=== PATIENT | male | born 1960 | race Caucasian/White ===

== ENCOUNTER 2017-06-06 19:57 | Emergency (ER) | payer OTHER ==
[2017-06-06 20:10] VITALS: BP 153/103
[2017-06-06] MEDS ORDERED: TRAM-48 PO (21:56)
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
--- NOTE | 2017-06-07 08:54 | RAD ---
Chest, 2 views, 06/06/2017: History: Chest pain Comparison is made to a study from 10/05/2011. The heart size and pulmonary vascularity are normal. No pulmonary infiltrates are seen. There is no evidence of pleural fluid. Mild spurring is present in the spine. IMPRESSION: No acute cardiopulmonary abnormality is detected.
== END 2017-06-06 22:02 | disposition home or self-care (01) ==
LOC: ER 19:57
DX: R91.1 Solitary pulmonary nodule (principal); R07.89 Other chest pain; I25.10 Atherosclerotic heart disease of native coronary artery without angina pectoris; I10 Essential (primary) hypertension; E78.00 Pure hypercholesterolemia, unspecified; I25.2 Old myocardial infarction
CPT/HCPCS: 71020; 99284

== ENCOUNTER 2018-12-18 11:01 | Emergency (ER) | payer OTHER ==
[~2018-12-18] VITALS: Ht 190.5 cm; Wt 113.4 kg
[~2018-12-18 11:01] MED LIST: TRAM-48 PO
[2018-12-18 11:14] VITALS: BP 169/104
[2018-12-18] MEDS ORDERED: AMOX1TAB61 PO (12:42)
[2018-12-18] MEDS ORDERED: FLUC150T PO (12:42)
--- NOTE | 2018-12-18 12:42 | PHYS DOC ---
Past History Past Medical History: CAD, High Cholesterol, Hypertension, Liver Disease, [place] Past Surgical History: Cholecystectomy, Other Alcohol Use: None Drug Use: None Adult General Chief Complaint Chief Complaint: DENTAL PROBLEM HPI HPI 58 sure male presents with tongue lesion. The patient has had white lesions on his skin lesions on his oropharynx off and on for a few weeks. The patient has been treating it with salt rinses at home. He can get it down, but not go away. Today he has a lesion on the left side of his tongue and his tongue feels slightly swollen. His recently was diagnosed and treated for thrush. The patient is concerned about strep or an infection. He has not had a fever at home. Review of Systems Review of Systems Constitutional: Denies fever or chills [] Eyes: Denies change in visual acuity, redness, or eye pain [] HENT: Sore tongue, sore throat [] Respiratory: Denies cough or shortness of breath [] Cardiovascular: No additional information not addressed in HPI [] GI: Denies abdominal pain, nausea, vomiting, bloody stools or diarrhea [] : Denies dysuria or hematuria [] Musculoskeletal: Denies back pain or joint pain [] Integument: Denies rash or skin lesions [] Neurologic: Denies headache, focal weakness or sensory changes [] Endocrine: Denies polyuria or polydipsia [] All other systems were reviewed and found to be within normal limits, except as documented in this note. Allergies Allergies Allergies Coded Allergies Type Severity Reaction Last Updated Verified No Known Allergies Allergy Unknown 06/06/17 Yes Physical Exam Physical Exam Constitutional: Well developed, well nourished, no acute distress, non-toxic appearance. [] HENT: Normocephalic, atraumatic, bilateral external ears normal, oropharynx erythematous with 1 cm whitish lesion on the lateral tongue left side. [] Eyes: PERRLA, EOMI, conjunctiva normal, no discharge. [] Neck: Normal range of motion, no tenderness, supple, no stridor. [] Cardiovascular:Heart rate regular rhythm, no murmur [] Lungs & Thorax: Bilateral breath sounds clear to auscultation [] Abdomen: Bowel sounds normal, soft, no tenderness, no masses, no pulsatile masses. [] Skin: Warm, dry, no erythema, no rash. [] Back: No tenderness, no CVA tenderness. [] Extremities: No tenderness, no cyanosis, no clubbing, ROM intact, no edema. [] Neurologic: Alert and oriented X 3, normal motor function, normal sensory function, no focal deficits noted. [] Psychologic: Affect normal, judgement normal, mood normal. [] Current Patient Data Vital Signs Vital Signs Date Time Temp Pulse Resp B/P (MAP) Pulse Ox O2 Delivery O2 Flow Rate FiO2 12/18/18 11:14 98.1 94 20 94 EKG EKG [] Radiology/Procedures Radiology/Procedures [] Course & Med Decision Making Course & Med Decision Making Pertinent Labs and Imaging studies reviewed. (See chart for details) Unsure of this fungal infection or a localized infection that is bacterial. I'm going to treat the patient in the ED with Diflucan. Also discharge on 7 days of Augmentin. I will also give him prescription for an additional dose of Diflucan PTC antibiotics make this worse. The patient is stable for discharge at this time. [] Dragon Disclaimer Dragon Disclaimer This electronic medical record was generated, in whole or in part, using a voice recognition dictation system. Departure Departure: Impression: Primary Impression: Thrush, oral Disposition: HOME, SELF-CARE Condition: STABLE Referrals: ARVIN ALTAMIRANO MD (PCP) Patient Instructions: Thrush, Adult, Gytb-el-Kylc Scripts Fluconazole (DIFLUCAN) 150 Mg Tablet 1 TAB PO ONCE for thrush, #1 TAB 1 Refill Prov: TAMMY KASPER DO 12/18/18 Amoxicillin/Potassium Clav (AUGMENTIN 875-125 TABLET) 1 Each Tablet 1 TAB PO BID for mouth infection, #14 TAB Prov: TAMMY KASPER DO 12/18/18 TAMMY KASPER DO Dec 18, 2018 12:42
[2018-12-18] MEDS ORDERED: FLUCONAZOLE 100 MG TABLET. PO ONE (12:45)
--- NOTE | 2018-12-18 13:02 | RAD ---
Chest, PA and Lateral: Technique: PA and lateral views of the chest were obtained. History: Cough. Comparison: 06/06/2017. Findings: The heart and pulmonary vasculature appear within normal limits. Minimal bibasilar lung airspace opacities.. The pleural margins are clear. Impression: Minimal bibasilar lung airspace opacities likely atelectasis or infiltrates.. Electronically signed by: Ovidio Greco MD (12/18/2018 12:59 PM) [facility]
[2019-01-16] MEDS ORDERED: GABA-585 PO (15:17)
[2019-01-17] MEDS ORDERED: PREG50CA PO (12:45)
[2019-01-17] MEDS ORDERED: PREG100C PO (12:45)
== END 2018-12-18 12:48 | disposition home or self-care (01) ==
LOC: ER 11:01
DX: B37.0 Candidal stomatitis (principal); I25.10 Atherosclerotic heart disease of native coronary artery without angina pectoris; E78.00 Pure hypercholesterolemia, unspecified; I10 Essential (primary) hypertension; I25.2 Old myocardial infarction
CPT/HCPCS: 71046; 87070; 87880; 99284

== ENCOUNTER 2019-01-05 19:12 | Observation (INO) | payer OTHER ==
[~2019-01-05] VITALS: Ht 193 cm; Wt 121.8 kg
[~2019-01-05 19:12] MED LIST changes: +AMOX1TAB61 PO; +FLUC150T PO
[2019-01-05] MEDS ORDERED: IV NORMAL SALINE 1,000ML 1,000 ML IV ONE (20:00)
[2019-01-05] MEDS ORDERED: THIAMINE INJ 100 MG in IV NORMAL SALINE 50ML 50 ML IV ONE (20:00)
[2019-01-05 20:07] LABS: BASO % 0 % (0-3); EOS # 0.1 x10^3/uL (0.0-0.7); EOS % 1 % (0-3); HEMATOCRIT 48.5 % (39.0-53.0); HEMOGLOBIN 16.6 g/dL (13.0-17.5); LYMPH # 4.9 x10^3/uL (1.0-4.8); LYMPH % 55 % (24-48); MEAN CORPUSCULAR HEMOGLOBIN 33 pg (25-35); MEAN CORPUSCULAR HGB CONC 34 g/dL (31-37); MEAN CORPUSCULAR VOLUME 96 fL (79-100); MONO # 0.8 x10^3/uL (0.0-1.1); MONO % 9 % (0-9); NEUT # 3.2 x10^3uL (1.8-7.7); NEUT % 35 % (31-73); PLATELET COUNT 127 x10^3/uL (140-400); RED BLOOD COUNT 5.04 x10^6/uL (4.30-5.70); RED CELL DISTRIBUTION WIDTH 14.4 % (11.5-14.5)
[2019-01-05 20:08] LABS: ALBUMIN 3.4 g/dL (3.4-5.0); ALBUMIN/GLOBULIN RATIO 0.9 (1.0-1.7); CALCIUM 8.6 mg/dL (8.5-10.1); CREATININE 0.7 mg/dL (0.7-1.3); GFR 116.7; POTASSIUM 3.5 mmol/L (3.5-5.1); TOTAL BILIRUBIN 0.5 mg/dL (0.2-1.0)
[2019-01-05] MEDS ORDERED: ONDANSETRON PF 4 MG/2 ML VIAL. IV PRN (20:45)
--- NOTE | 2019-01-05 20:49 | ED.ADGEN ---
Past History Past Medical History: CAD, High Cholesterol, Hypertension, Liver Disease, [place] Past Surgical History: Cholecystectomy, Other Alcohol Use: None Drug Use: None Adult General Chief Complaint Chief Complaint chest pain HPI HPI 58 years old male presented to the emergency department via ambulance complaining of chest pain and leg pain. This gentleman he was seen and evaluated at [facility] on December 30, 2018 at 239 morning for being unresponsive he was found to be overdosed on heroin apparently EMS found him unresponsive and they did CPR on him also started an IO on his right leg to give him Narcan 2 mg IV which he responded patient presents to the emergency department stating he's been having chest pain since the CPR he is unable to describe his pain for me and able to answer any question DUE TO intoxication with alcohol Review of Systems Review of Systems Unable to be obtained due to intoxication Current Medications Current Medications Current Medications Medications (Trade) Dose Ordered Sig/Lynnette Start Time Stop Time Status Last Admin Dose Admin Fentanyl Citrate (Fentanyl 2ml Vial) 50 mcg 1X ONCE 01/05/19 20:15 01/05/19 20:16 DC 01/05/19 20:13 50 MCG Ondansetron HCl (Zofran) 4 mg PRN Q4HRS PRN 01/05/19 20:45 01/06/19 20:44 UNV Sodium Chloride 1,000 ml @ 0 mls/hr Q0M 01/05/19 20:41 01/06/19 20:40 UNV Thiamine HCl 100 mg/Sodium Chloride 51 ml @ 102 mls/hr 1X ONCE 01/05/19 20:00 01/05/19 20:29 DC 01/05/19 20:15 102 MLS/HR Allergies Allergies Allergies Coded Allergies Type Severity Reaction Last Updated Verified No Known Allergies Allergy Unknown 06/06/17 Yes Physical Exam Physical Exam Constitutional: Well developed, well nourished, no acute distress, non-toxic appearance. [] HENT: Normocephalic, atraumatic, bilateral external ears normal, Eyes: PERRLA, EOMI, conjunctiva normal, no discharge. [] Neck: Normal range of motion, no tenderness, supple, no stridor. [] Cardiovascular:Heart rate regular rhythm, no murmur [] Lungs & Thorax: Bilateral breath sounds clear to auscultation [] Abdomen: Bowel sounds normal, soft, no tenderness, no masses, no pulsatile masses. [] Skin: Warm, dry, no erythema, no rash. [] Current Patient Data Vital Signs Vital Signs Date Time Temp Pulse Resp B/P (MAP) Pulse Ox O2 Delivery O2 Flow Rate FiO2 01/05/19 20:13 16 Lab Results Laboratory Tests Test 01/05/19 19:35 White Blood Count 9.0 x10^3/uL (4.0-11.0) Red Blood Count 5.04 x10^6/uL (4.30-5.70) Hemoglobin 16.6 g/dL (13.0-17.5) Hematocrit 48.5 % (39.0-53.0) Mean Corpuscular Volume 96 fL (79-100) Mean Corpuscular Hemoglobin 33 pg (25-35) Mean Corpuscular Hemoglobin Concent 34 g/dL (31-37) Red Cell Distribution Width 14.4 % (11.5-14.5) Platelet Count 127 x10^3/uL (140-400) L Neutrophils (%) (Auto) 35 % (31-73) Lymphocytes (%) (Auto) 55 % (24-48) H Monocytes (%) (Auto) 9 % (0-9) Eosinophils (%) (Auto) 1 % (0-3) Basophils (%) (Auto) 0 % (0-3) Neutrophils # (Auto) 3.2 x10^3uL (1.8-7.7) Lymphocytes # (Auto) 4.9 x10^3/uL (1.0-4.8) H Monocytes # (Auto) 0.8 x10^3/uL (0.0-1.1) Eosinophils # (Auto) 0.1 x10^3/uL (0.0-0.7) Basophils # (Auto) 0.0 x10^3/uL (0.0-0.2) Platelet Estimate Pending Sodium Level 145 mmol/L (136-145) Potassium Level 3.5 mmol/L (3.5-5.1) Chloride Level 106 mmol/L (98-107) Carbon Dioxide Level 26 mmol/L (21-32) Anion Gap 13 (6-14) Blood Urea Nitrogen 5 mg/dL (8-26) L Creatinine 0.7 mg/dL (0.7-1.3) Estimated GFR (Cockcroft-Gault) 116.7 BUN/Creatinine Ratio 7 (6-20) Glucose Level 108 mg/dL (70-99) H Calcium Level 8.6 mg/dL (8.5-10.1) Total Bilirubin 0.5 mg/dL (0.2-1.0) Aspartate Amino Transferase (AST) 67 U/L (15-37) H Alanine Aminotransferase (ALT) 56 U/L (16-63) Alkaline Phosphatase 99 U/L (46-116) Troponin I Quantitative < 0.017 ng/mL (0-0.055) Total Protein 7.0 g/dL (6.4-8.2) Albumin 3.4 g/dL (3.4-5.0) Albumin/Globulin Ratio 0.9 (1.0-1.7) L Lipase 547 U/L (73-393) H Ethyl Alcohol Level 435 mg/dL (0-10) *H EKG EKG [] Radiology/Procedures Radiology/Procedures [] Course & Med Decision Making Course & Med Decision Making Pertinent Labs and Imaging studies reviewed. (See chart for details) [] Final Impression Final Impression [] Problems: (1) Intoxication (2) Chest pain in adult Dragon Disclaimer Dragon Disclaimer This electronic medical record was generated, in whole or in part, using a voice recognition dictation system. TIMOTEO BORREGO MD Jan 05, 2019 20:49
[2019-01-05 21:00] LABS: % ATYL 4 % (0-0); % EOS 2 % (0-5); % LYMPHS 49 % (24-48); % MONOS 7 % (0-10); % SEGS 38 % (35-66)
[2019-01-05 21:01] LABS: ANISOCYTOSIS SLIGHT; PLT ESTIMATE ADEQUATE (ADEQUATE)
[2019-01-05 23:05] VITALS: BP 119/83
[2019-01-05] MEDS: IV NORMAL SALINE 1,000ML 1,000 ML IV SCH (23:05)
[2019-01-05] MEDS ORDERED: chlordiazePOXIDE HCL 25 MG CAPSULE PO PRN ×2 (23:45)
[2019-01-05] MEDS ORDERED: HALOPERIDOL LACT 5 MG/ML VIAL. IM PRN (23:45)
[2019-01-05] MEDS ORDERED: diphenhydrAMINE 50 MG/ML VIAL IVP PRN (23:45)
[2019-01-06] VITALS (16 sets, daily range): BP systolic 125–173; BP diastolic 73–108
[2019-01-06] MEDS: oxyCODONE IR 5 MG TABLET PO PRN ×2 (00:06→05:08)
[2019-01-06] MEDS: MORPHINE SULFATE 4 MG/ML DISP.SYRIN. IV PRN ×2 (02:07→06:22)
[2019-01-06] MEDS ORDERED: PROP120C3 PO (03:24)
[2019-01-06] MEDS ORDERED: AMLO5TAB10 PO (03:24)
[2019-01-06] MEDS ORDERED: CLON0.1T12 PO (04:47)
[2019-01-06] MEDS ORDERED: PREN-54 PO (04:47)
[2019-01-06] MEDS ORDERED: LACT10SO PO (04:47)
[2019-01-06] MEDS ORDERED: FLUT16SP21 NS (04:47)
[2019-01-06] MEDS: IV NORMAL SALINE 1,000ML 1,000 ML IV SCH ×2 (06:00→10:01)
[2019-01-06 06:42] LABS: BASO % 0 % (0-3); EOS # 0.1 x10^3/uL (0.0-0.7); EOS % 1 % (0-3); HEMATOCRIT 45.4 % (39.0-53.0); HEMOGLOBIN 15.2 g/dL (13.0-17.5); LYMPH # 3.9 x10^3/uL (1.0-4.8); LYMPH % 60 % (24-48); MEAN CORPUSCULAR HEMOGLOBIN 32 pg (25-35); MEAN CORPUSCULAR HGB CONC 34 g/dL (31-37); MEAN CORPUSCULAR VOLUME 97 fL (79-100); MONO # 0.5 x10^3/uL (0.0-1.1); MONO % 7 % (0-9); NEUT # 2.1 x10^3uL (1.8-7.7); NEUT % 32 % (31-73); PLATELET COUNT 105 x10^3/uL (140-400); RED CELL DISTRIBUTION WIDTH 14.7 % (11.5-14.5); WHITE BLOOD COUNT 6.6 x10^3/uL (4.0-11.0)
[2019-01-06 06:48] LABS: ALBUMIN 2.9 g/dL (3.4-5.0); ALBUMIN/GLOBULIN RATIO 0.8 (1.0-1.7); CALCIUM 7.8 mg/dL (8.5-10.1); CREATININE 0.7 mg/dL (0.7-1.3); GFR 116.7; POTASSIUM 3.6 mmol/L (3.5-5.1); TOTAL BILIRUBIN 0.5 mg/dL (0.2-1.0); TOTAL PROTEIN 6.5 g/dL (6.4-8.2)
--- NOTE | 2019-01-06 08:17 | RAD ---
Indication:Chest pain, short of air TECHNIQUE:Portable AP chest X-ray COMPARISON:12/18/2018 FINDINGS: Heart is normal in size. Lungs are clear. No pneumothorax or pleural effusion. Visualized bony thorax is within normal limits. IMPRESSION: No acute pulmonary process. Electronically signed by: Ace Torres DO (01/06/2019 8:14 AM) [facility]
[2019-01-06] MEDS ORDERED: FOLIC ACID 1 MG TABLET PO SCH (09:00)
[2019-01-06] MEDS ORDERED: MULTIVITAMIN with MINERAL TABLET. PO SCH (09:00)
[2019-01-06 09:02] LABS: BARBITURATES NEG (NEG); BENZODIAZEPINES NEG (NEG); CANNABINOIDS NEG (NEG); COCAINE POS (NEG); METHADONE NEG (NEG); OPIATES POS (NEG); PHENCYCLIDINE NEG (NEG)
[2019-01-06 09:07] LABS: AMPHETAMINE/METHAMPHETAMINE NEG (NEG)
[2019-01-06] MEDS ORDERED: oxyCODONE IR 5 MG TABLET PO PRN (12:00)
[2019-01-06] MEDS ORDERED: amLODIPine BESYLATE 5 MG TABLET PO SCH (14:00)
[2019-01-06] MEDS ORDERED: FLUTICASONE 50MCG/NASAL SPRAY 16GM BOTTLE. NS SCH (14:00)
--- NOTE | 2019-01-06 18:35 | SSS ---
ADMIT DATE: 01/06/2019 HISTORY OF PRESENT ILLNESS: The patient is a 58-year-old male patient who presented to the Emergency Department via ambulance complaining of chest pain and leg pain. He apparently was seen and evaluated at [facility] system 12/30/2018 for being unresponsive and was found to have overdosed on heroin and apparently EMS found him unresponsive and they did the CPR and also started on intraosseous access in his right leg to give him Narcan 2 mg IV, which he responded. He presented stating that he has been having chest pain since the CPR. He is unable to describe his pain and he was basically very intoxicated and his blood alcohol level was extremely high. In fact, his blood alcohol level was 435. However, all his lab work seems to be within normal range and a decision was made to admit him for overnight observation until he hair up. PAST MEDICAL HISTORY: Significant for alcohol abuse, acute upper GI bleed, alcohol induced acute pancreatitis, chronic anemia, has had a history of acute cholecystitis. Cervical disk disease, cervical radiculopathy, cervicalgia, chronic hepatitis C with cirrhosis, chronic hepatitis C without hepatic coma, has chronic midline low back pain with right-sided sciatica, chronic pain syndrome, chronic right radicular pain, closed nondisplaced fracture of the fifth metatarsal bone, coronary artery disease, depression, anxiety, hypertension, hiatal hernia, hearing loss, mixed hyperlipidemia. PAST SURGICAL HISTORY: Significant for cardiac catheterization, cholecystectomy, laparoscopy with cholangiogram, esophagogastroduodenoscopy. He underwent also endoscopic retrograde cholangiopancreatography with sphincterotomy. He has hand surgery, hernia repair, mandible surgery, orbital fracture status post open reduction and internal fixation. He has also orchiopexy. FAMILY HISTORY: Significant for leukemia in his brother, myelodysplastic syndrome in his mother, heart disease in his mother. SOCIAL HISTORY: He apparently is . He does not smoke or use smokeless tobacco; however, he drinks about 56 cans of beer per week. ALLERGIES: He has no known drug allergies. MEDICATIONS: He is currently on following medications: He is on propranolol 120 mg once a day, amlodipine 5 mg once a day, lactulose 30 mL p.o. daily with breakfast, Flonase 2 sprays to each nostril once a day, and multivitamin 1 tablet once a day. PHYSICAL EXAMINATION: GENERAL: When I examined him this afternoon, he was resting, slightly propped up in bed, no apparent distress. There was no pallor, jaundice, cyanosis, or thyromegaly. No jugular venous distension. No lower limb edema. VITAL SIGNS: His heart rate was 99, blood pressure was 163/108, temperature was 98, respiratory rate was 11 and oxygen saturation was 95%. HEAD, EYES, NOSE AND THROAT: Normocephalic, atraumatic. NECK: Supple. HEART: Showed normal first and second heart sounds. No gallop, rub or murmur. CHEST: Clear to auscultation. No crepitation or rhonchi. ABDOMEN: Distended, soft, nontender. NEUROLOGIC: He was awake, alert, responding appropriately. Cranial nerves intact. EXTREMITIES: He moves extremities without difficulty. LABORATORY DATA: On admission showed that his white cell count was 9000, hemoglobin 16.5, hematocrit 48.5, MCV 96, and platelet count of 127,000. His chemistry showed a serum sodium 145, potassium 3.5, chloride 106, bicarbonate 26, anion gap of 13, BUN 5, creatinine 0.7, estimated GFR was 116 mL per minute, his glucose 108, calcium was 8.6. Total bilirubin, AST, ALT, alkaline phosphatase were normal. Total protein 7, albumin 3.4. His lipase was high at 547. His toxic screen was positive for opiates, cocaine, and alcohol. In fact, his blood alcohol level was 435. On today's labs showed that his blood alcohol level is less than 31 mg/dL. His chemistry showed that his serum sodium was 149, potassium 3.6, chloride 111, bicarbonate 25, anion gap of 13, BUN 5, creatinine 0.7, estimated GFR was 116 mL per minute, his glucose was 96, calcium was 7.8, magnesium was 1.9. Total bilirubin, AST, ALT, alkaline phosphatase are slightly elevated. Total protein was 6.5, albumin 2.9. Lipase was 316. He was discharged home to continue on his amlodipine 5 mg once a day, Flonase 2 sprays to each nostril once a day, lactulose 30 mL p.o. daily, multivitamin with mineral 1 tablet once a day and propranolol 120 mg once a day. FINAL DISCHARGE DIAGNOSES: Alcohol intoxication, polysubstance abuse including opiates and cocaine. 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 MARGE GARCIA MD DR: SOFIA/francis JOB#: [id number] / [id number]
[2019-01-06] MEDS ORDERED: AMOXICILLIN/K CLAV 875/125MG TABLET. PO SCH (21:00)
--- NOTE | 2019-01-06 21:57 | EKG ---
[address] [address] Test Date: 2019-01-05 Test Time: 19:32:02 Pat Name: DEAN BELL Department: Room: [facility] 1 Gender: M [employer]: MARIANN : 1960 Requested By: TIMOTEO BORREGO Order Number: [id number] Reading MD: Sundeep Dodson MD Measurements Intervals [place] Rate: 77 P: 42 LA: 180 QRS: -1 QRSD: 92 T: 21 QT: 368 QTc: 418 Interpretive Statements SINUS RHYTHM CANNOT RULE OUT INFERIOR INFARCT Electronically Signed On 01-09-2019 10:05:36 CDT by Sundeep Dodson MD
[2019-01-07] MEDS ORDERED: PROPRANOLOL ER 60 MG CAP.SA.24H. PO SCH (14:00)
== END 2019-01-06 18:36 | disposition home or self-care (01) ==
LOC: ER 19:12 → ICU 20:50 → INTOOBSV 20:50
PROVIDERS: ADMIT Internal Medicine; ATTEND Internal Medicine
DX: F10.129 Alcohol abuse with intoxication, unspecified (principal); E78.00 Pure hypercholesterolemia, unspecified; F14.10 Cocaine abuse, uncomplicated; G89.4 Chronic pain syndrome; B18.2 Chronic viral hepatitis C; F11.10 Opioid abuse, uncomplicated; I10 Essential (primary) hypertension; I25.10 Atherosclerotic heart disease of native coronary artery without angina pectoris; K70.30 Alcoholic cirrhosis of liver without ascites; Y90.8 Blood alcohol level of 240 mg/100 ml or more; Z80.6 Family history of leukemia; Z79.899 Other long term (current) drug therapy; Z82.49 Family history of ischemic heart disease and other diseases of the circulatory system; Z90.49 Acquired absence of other specified parts of digestive tract; D53.9 Nutritional anemia, unspecified; F32.9 Major depressive disorder, single episode, unspecified; F41.9 Anxiety disorder, unspecified; E78.5 Hyperlipidemia, unspecified
CPT/HCPCS: 36415; 71045; 80053; 80307; 83690; 83735; 84484; 85007; 85025; 87641; 93005; 96374; 96375; 96376; 99284; G0378; G0480; J2060; J2270; J3010; 96365; 96366; G0379; 99285-25; J7030

== ENCOUNTER 2019-01-16 00:02 | Observation (INO) | payer OTHER ==
[~2019-01-16] VITALS: Ht 193 cm; Wt 122.9 kg
[~2019-01-16 00:02] MED LIST changes: +AMLO5TAB10 PO; +CLON0.1T12 PO; +FLUT16SP21 NS; +LACT10SO PO; +PREN-54 PO; +PROP120C3 PO
--- NOTE | 2019-01-16 00:21 | ED.ADGEN ---
Past History Past Medical History: Alcoholism, Anxiety, Arthritis, CAD, COPD, Depression, Fibromyalgia, GERD, High Cholesterol, Hypertension, Liver Disease, MA, Other Past Medical History Chronic pain Past Surgical History: Cholecystectomy, Other Alcohol Use: Heavy Drug Use: Heroin Adult General Chief Complaint Chief Complaint ".. I was code at my home the other day... they did fucking CPR on me... I went to the other hospital... but the sent me home.. my ribs got broke when the coded me... I got stage IV End Stage Liver Dz from my alcohol abuse and Hepatitis C.. and I got chronic pain everywhere... I fucked up and Dr. Zuñiga cut me off my narcotics... My chest hurt more tonight..a different fucking pain... not the fucking pain when they broke my fucking ribs..."..."when I florence over dosed... I would rather not say... but I was doing heroin.. for my fucking chronic pain...".. " I shit myself today..just before .. my called the ambulance..." HPI HPI Patient is a 58 year old male who presents with above hx of chest pain, body pain and reported end stage alcohol induce liver failure. Pt. some what a poor historian since he consumed approximate a liter of volka today. Pt. reported had CRP earlier in the past week and went to [place] on 12/29, after Heroin OD , but pt. states they since him home. Pt. also recently admitted here on 01/06 for chest pain. Pt. has a history of alcohol anxious, diabetes, anxiety, coronary artery disease, elevated cholesterol, hypertension, chronic pain, arthritis, end stage liver disease, polysubstance abuse, copd, sleep apnea, GI bleeds, acute pancreatitis, chronic anemia, DJD, cervical neuropathy, chronic hepatitis C with cirrhosis, history of hepatic coma, sciatica,. Recent history of fracture rt. 5th metatarsal bones and hx. of non-compliance. Pt. states his chest pain tonight is not the one from the recent CPR event but different. Pt. rates his cardiac pain as 10/10.. and another 10/10 rib pain. Pt. called after his arrival to ED and advised he had consume a 5th of alcohol in past 24 hrs. Review of Systems Review of Systems Constitutional: Denies fever or chills [] Eyes: Denies change in visual acuity, redness, or eye pain [] HENT: Denies nasal congestion or sore throat [] Respiratory: Hx. of shortness of breath [] Cardiovascular: No additional information not addressed in HPI [] GI: Denies abdominal pain, , vomiting, complaints of diarrhea [ and ]nausea : Denies dysuria or hematuria [] Musculoskeletal: Denies back pain or joint pain []States entire body hurts. Integument: Denies rash or skin lesions [] Neurologic: Denies headache, focal weakness or sensory changes [] Endocrine: Denies polyuria or polydipsia [] All other systems were reviewed and found to be within normal limits, except as documented in this note. Family History Family History Leukemia with brother, mother with Leukemia like syndrome- myelodysplastic and heart dz. Current Medications Current Medications Current Medications Medications (Trade) Dose Ordered Sig/Lynnette Start Time Stop Time Status Last Admin Dose Admin Aspirin (Children'S Aspirin) 324 mg 1X ONCE 01/16/19 01:00 01/16/19 01:01 DC 01/16/19 00:54 324 MG Morphine Sulfate (Morphine 10mg Syringe) 10 mg 1X ONCE 01/16/19 01:00 01/16/19 01:01 DC 01/16/19 00:54 10 MG Sodium Chloride 1,000 ml @ 100 mls/hr Q10H 01/16/19 01:00 01/16/19 10:59 01/16/19 00:55 100 MLS/HR Allergies Allergies Allergies Coded Allergies Type Severity Reaction Last Updated Verified No Known Allergies Allergy Unknown 06/06/17 Yes Physical Exam Physical Exam Constitutional: in reported acute distress, intoxicated in appearance. [] HENT: Normocephalic, atraumatic, bilateral external ears normal, oropharynx moist, no oral exudates, nose normal. [] Eyes: PERRLA, EOMI, conjunctiva normal, no discharge. [] Neck: Limited range of motion, no tenderness, supple, no stridor. [] Cardiovascular:Heart ill regular rate and rhythm, PMI to Lt. At times appears to be afib on monitor Lungs & Thorax: Bilateral breath sounds equal apexes with scattered wheezes and basilar crackles on auscultation [] Abdomen: Bowel sounds hyperactive, soft,generalized tenderness, no masses, no pulsatile masses. [] Morbid obesity. Fluid wave. Rectal no gross blood or tarry stools. Old surgery scars. Skin: Warm, dry, no erythema, veinous stasis, piloerection Back: No tenderness, no CVA tenderness. [] Extremities: No tenderness, no cyanosis, no clubbing, ROM intact, ankle edema. [] Old surgery scar. More veinous stasis on Rt. Rt.hand old surgery scars and chronic arthritic changes. Neurologic: Alert and oriented X 3, but appears intoxicated, moves all ext. on request. DTR +2 knees. Psychologic: Affect anxious, judgement impaired, mood depressed.] Current Patient Data Vital Signs Vital Signs Date Time Temp Pulse Resp B/P (MAP) Pulse Ox O2 Delivery O2 Flow Rate FiO2 01/16/19 00:54 Nasal Cannula 2.0 01/16/19 00:10 98.2 82 24 91 Lab Results Laboratory Tests Test 01/16/19 00:20 White Blood Count 7.2 x10^3/uL (4.0-11.0) Red Blood Count 5.20 x10^6/uL (4.30-5.70) Hemoglobin 17.0 g/dL (13.0-17.5) Hematocrit 50.5 % (39.0-53.0) Mean Corpuscular Volume 97 fL (79-100) Mean Corpuscular Hemoglobin 33 pg (25-35) Mean Corpuscular Hemoglobin Concent 34 g/dL (31-37) Red Cell Distribution Width 15.2 % (11.5-14.5) H Platelet Count 120 x10^3/uL (140-400) L Neutrophils (%) (Auto) 41 % (31-73) Lymphocytes (%) (Auto) 51 % (24-48) H Monocytes (%) (Auto) 7 % (0-9) Eosinophils (%) (Auto) 1 % (0-3) Basophils (%) (Auto) 1 % (0-3) Neutrophils # (Auto) 2.9 x10^3uL (1.8-7.7) Lymphocytes # (Auto) 3.6 x10^3/uL (1.0-4.8) Monocytes # (Auto) 0.5 x10^3/uL (0.0-1.1) Eosinophils # (Auto) 0.0 x10^3/uL (0.0-0.7) Basophils # (Auto) 0.1 x10^3/uL (0.0-0.2) Erythrocyte Sedimentation Rate 9 (0-15) Troponin I Quantitative < 0.017 ng/mL (0-0.055) EKG EKG My interpretation of EKG shows a sinus rhythm at 88 bpm. There is some baseline artifact.[] Radiology/Procedures Radiology/Procedures I interpretation chest x-ray shows[]no acute interval change, chronic findings, cardiomegaly Course & Med Decision Making Course & Med Decision Making Pertinent Labs and Imaging studies reviewed. (See chart for details) Heart Score 4-[address] Rodriguez and cardiology consult . Suspect pain may be related more to his chronic pain and possible narcotic withdrawal tonight by exam. Will not anticoagulate at this time for D-dimer and Chest pain because of past GI bleeding. [] Final Impression Final Impression 1. Chest pain[] 2. End Stage Liver Dz-alcoholic and hepatitis C 3. History of polysubstance abuse 4. History of alcohol abuse- 299 5. History of acute exacerbation of chronic pain 6. Thrombocytopenia 120 7. Narcotic Dependent- may be having Narcotic Withdrawal- 8. Chronic Pain syndrome 9. Elevated Lipase 580 10 Hypernatremia 147 11. Elevated D-dimer 0.70 12. Elevated Lactic Acid Dragon Disclaimer Dragon Disclaimer This electronic medical record was generated, in whole or in part, using a voice recognition dictation system. Discharge Summary Brief Hospital Course Allergies Allergies Coded Allergies Type Severity Reaction Last Updated Verified No Known Allergies Allergy Unknown 06/06/17 Yes Vital Signs Vital Signs Date Time Temp Pulse Resp B/P (MAP) Pulse Ox O2 Delivery O2 Flow Rate FiO2 01/16/19 00:54 Nasal Cannula 2.0 01/16/19 00:10 98.2 82 24 91 Lab Results Laboratory Tests Test 01/16/19 00:20 White Blood Count 7.2 x10^3/uL (4.0-11.0) Red Blood Count 5.20 x10^6/uL (4.30-5.70) Hemoglobin 17.0 g/dL (13.0-17.5) Hematocrit 50.5 % (39.0-53.0) Mean Corpuscular Volume 97 fL (79-100) Mean Corpuscular Hemoglobin 33 pg (25-35) Mean Corpuscular Hemoglobin Concent 34 g/dL (31-37) Red Cell Distribution Width 15.2 % (11.5-14.5) Platelet Count 120 x10^3/uL (140-400) Neutrophils (%) (Auto) 41 % (31-73) Lymphocytes (%) (Auto) 51 % (24-48) Monocytes (%) (Auto) 7 % (0-9) Eosinophils (%) (Auto) 1 % (0-3) Basophils (%) (Auto) 1 % (0-3) Neutrophils # (Auto) 2.9 x10^3uL (1.8-7.7) Lymphocytes # (Auto) 3.6 x10^3/uL (1.0-4.8) Monocytes # (Auto) 0.5 x10^3/uL (0.0-1.1) Eosinophils # (Auto) 0.0 x10^3/uL (0.0-0.7) Basophils # (Auto) 0.1 x10^3/uL (0.0-0.2) Erythrocyte Sedimentation Rate 9 (0-15) Troponin I Quantitative < 0.017 ng/mL (0-0.055) Brief Hospital Course Mr. Andrea is a 58 old male who presented with cp, and I suspect narcotic withdrawal. Admitted to Dr. Rodriguez with Cardiology consult. Discharge Information Condition at Discharge: Improved, Stable Dischare Medications Current Medications Aspirin (Children'S Aspirin) 324 mg 1X ONCE PO Last administered on 01/16/19at 00:54; Admin Dose 324 MG; Start 01/16/19 at 01:00; Stop 01/16/19 at 01:01; Status DC Sodium Chloride 1,000 ml @ 100 mls/hr Q10H IV Last administered on 01/16/19at 00 :55; Admin Dose 100 MLS/HR; Start 01/16/19 at 01:00; Stop 01/16/19 at 10:59 Morphine Sulfate (Morphine 10mg Syringe) 10 mg 1X ONCE SQ Last administered on 01/16/19at 00:54; Admin Dose 10 MG; Start 01/16/19 at 01:00; Stop 01/16/19 at 01: 01; Status DC Active Scripts Active Reported Pnv 29-1 Tablet ( Vit #76/Iron,Carb/FA) 1 Each Tablet 1 Each PO DAILY Lactulose 10 Gm/15 Ml Solution 30 Ml PO DAILYWBKFT Fluticasone Propionate Nasal [place] (Fluticasone Propionate) 16 Gm [place].susp 2 Spr NS DAILY Amlodipine Besylate 5 Mg Tablet 5 Mg PO DAILY Propranolol Hcl 120 Mg Cap.sa.24h 120 Mg PO DAILY Dragon Disclaimer This chart was dictated in whole or in part using Voice Recognition software in a busy, high-work load, and often noisy Emergency Department environment. It may contain unintended and wholly unrecognized errors or omissions. DEAN GAYTAN MD Jan 16, 2019 00:21
[2019-01-16 00:42] LABS: BASO # 0.1 x10^3/uL (0.0-0.2); BASO % 1 % (0-3); EOS % 1 % (0-3); HEMATOCRIT 50.5 % (39.0-53.0); LYMPH # 3.6 x10^3/uL (1.0-4.8); LYMPH % 51 % (24-48); MEAN CORPUSCULAR HEMOGLOBIN 33 pg (25-35); MEAN CORPUSCULAR HGB CONC 34 g/dL (31-37); MEAN CORPUSCULAR VOLUME 97 fL (79-100); MONO # 0.5 x10^3/uL (0.0-1.1); MONO % 7 % (0-9); NEUT # 2.9 x10^3uL (1.8-7.7); NEUT % 41 % (31-73); PLATELET COUNT 120 x10^3/uL (140-400); RED CELL DISTRIBUTION WIDTH 15.2 % (11.5-14.5); WHITE BLOOD COUNT 7.2 x10^3/uL (4.0-11.0)
[2019-01-16] MEDS ORDERED: IV NORMAL SALINE 1,000ML 1,000 ML IV SCH (01:00)
[2019-01-16] MEDS ORDERED: MORPHINE SULFATE 10 MG/ML SYRINGE. SQ ONE (01:00)
[2019-01-16] MEDS ORDERED: ASPIRIN 81 MG TAB.CHEW PO ONE (01:00)
[2019-01-16 01:40] LABS: SEDIMENTATION RATE 9 (0-15)
[2019-01-16] MEDS ORDERED: ONDANSETRON PF 4 MG/2 ML VIAL. IV PRN (02:00)
[2019-01-16 02:06] LABS: ALBUMIN 3.1 g/dL (3.4-5.0); CALCIUM 8.1 mg/dL (8.5-10.1); CREATININE 0.6 mg/dL (0.7-1.3); DIRECT BILIRUBIN 0.2 mg/dL (0.0-0.2); GFR 139.4; MAGNESIUM 1.9 mg/dL (1.8-2.4); POTASSIUM 3.6 mmol/L (3.5-5.1); TOTAL BILIRUBIN 0.5 mg/dL (0.2-1.0)
[2019-01-16] MEDS ORDERED: MVI, ADULT NO.4 WITH VIT K 10 ML, FOLIC ACID SYRINGE for ER 1 MG, THIAMINE INJ 100 MG i... IV ONE ×4 (02:30)
[2019-01-16] MEDS ORDERED: MVI, ADULT NO.4 WITH VIT K 10 ML VIAL IV ONE (02:46)
[2019-01-16] MEDS ORDERED: THIAMINE 200 MG/2 ML VIAL. IV ONE (02:46)
[2019-01-16] MEDS ORDERED: FOLIC ACID 5 MG/ML SYRINGE for ER IV ONE (02:47)
[2019-01-16] MEDS ORDERED: IV RINGERS SOLUTION,LACTATED 1,000 ML IV ONE (03:00)
[2019-01-16 03:20] VITALS: BP 152/94
[2019-01-16 03:38] LABS: BACTERIA,URINE 0 /HPF (0-FEW); BILIRUBIN,URINE NEG (NEG); CLARITY,URINE CLEAR; COLOR,URINE YELLOW; GLUCOSE,URINE NEG (NEG); NITRITE,URINE NEG (NEG); RBC,URINE OCC /HPF (0-2); SQUAMOUS EPITHELIAL CELL,UR OCC /LPF; UROBILINOGEN,URINE 0.2 mg/dL (0.2 mg/dL); WBC,URINE OCC /HPF (0-4)
[2019-01-16 03:42] LABS: BARBITURATES NEG (NEG); BENZODIAZEPINES NEG (NEG); CANNABINOIDS NEG (NEG); COCAINE POS (NEG); METHADONE NEG (NEG); OPIATES POS (NEG); PHENCYCLIDINE NEG (NEG)
[2019-01-16 03:46] LABS: AMPHETAMINE/METHAMPHETAMINE NEG (NEG)
--- NOTE | 2019-01-16 03:52 | RAD ---
Acute Abdominal Series: Technique: PA view of the chest and supine and upright views of the abdomen were obtained. History: Pain. Comparison: None. Findings: The lungs and pleural margins are clear. The bowel gas pattern appears normal. There is no free air. Impression: Radiographically normal acute abdominal series. Electronically signed by: Jose Gillis III, MD (01/16/2019 3:49 AM) [id number]
[2019-01-16] MEDS: MORPHINE SULFATE 10 MG/ML SYRINGE. SQ PRN ×2 (04:38→12:20)
[2019-01-16 05:55] VITALS: BP 136/87
[2019-01-16] MEDS ORDERED: LACTULOSE 20 GM/30 ML SOLUTION. PO SCH (09:00)
[2019-01-16] MEDS ORDERED: PROPRANOLOL ER 60 MG CAP.SA.24H. PO SCH (09:00)
[2019-01-16] MEDS ORDERED: amLODIPine BESYLATE 5 MG TABLET PO SCH (09:00)
[2019-01-16] MEDS ORDERED: FLUTICASONE 50MCG/NASAL SPRAY 16GM BOTTLE. NS SCH (09:00)
--- NOTE | 2019-01-16 09:50 | PDOC2 ---
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 He reports a cardiac arrest 12/29/18 weeks ago due to heroin overdose , for which he received CPR and reportedly experienced fractured ribs. He now reports increased left lateral chest pain any time he cough's or sneeze's. Pain is exacerbated by movement. He reports piror history of TX with PCI/ stenting about 2 years ago and was admitted here on 01/06 for chest pain as well. He denies any anginal symptoms since that time and reports current pain is nothing like his prior angina. 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 He denies dyspnea, congestive symptoms or palpitations. He denies presyncope or syncope. He complains of chronic pain in his legs but is unable to articulate a cause. He reports about 10 years of prescribed opiates for chronic pain which were discontinued several weeks ago. He reports heroin use due to withdrawal from prescribed meds and overdose after first use. He initially denies other drug use but when asked about +cocaine on drug screen, he admits to "one puff". He continues to drink despite end stage liver diagnosis and in fact was intoxicated during is 01/06 admission. His reported to ED he had consumed a 5th of whiskey prior to this admission. He reports functional limitations to the point of being unable to complete ADLs but associates this with his chronic pain. He complains of pain in both legs but reports it is improved with walking around. Past Medical History CAD, TX with PCI/stents Hypertension, hyperlipidemia Alcoholism, Polysubstance abuse GERD COPD, ANNETTE Depression,anxiety diabetes, polysubstance abuse, chronic anemia, thrombocytopenia GI bleeding, acute pancreatitis, chronic hepatitis C with cirrhosis, history of hepatic coma, end stage liver disease chronic pain, Arthritis, DJD, cervical neuropathy, Fibromyalgia, sciatica, Recent history of fracture rt. 5th metatarsal bones Past Surgical History Cholecystectomy ERCP, hernia repair, endoscopic retrograde cholangiopancreatography with sphincterotomy. orchiopexy, hand surgery mandible surgery ORIF with plate for orbital fracture Family History pancreatic cancer Social History ongoing heavy alcohol use IV heroin use Cocaine use Current Medications Current Medications Aspirin (Children'S Aspirin) 324 mg 1X ONCE PO Last administered on 01/16/19at 00:54; Start 01/16/19 at 01:00; Stop 01/16/19 at 01:01; Status DC Sodium Chloride 1,000 ml @ 100 mls/hr Q10H IV Last administered on 01/16/19at 00 :55; Start 01/16/19 at 01:00; Stop 01/16/19 at 10:59 Morphine Sulfate (Morphine 10mg Syringe) 10 mg 1X ONCE SQ Last administered on 01/16/19at 00:54; Start 01/16/19 at 01:00; Stop 01/16/19 at 01:01; Status DC Ondansetron HCl (Zofran) 4 mg PRN Q4HRS PRN IV NAUSEA/VOMITING; Start 01/16/19 at 02:00; Stop 01/17/19 at 01:59 Albuterol/ Ipratropium (Duoneb) 3 ml RTQID NEB ; Start 01/16/19 at 08:00; Stop at 07:59 Multivitamins/ Minerals 10 ml/ Folic Acid 1 mg/ Thiamine HCl 100 mg/Lactated Ringer's 1,011.2 ml @ 1,011.2 mls/hr 1X ONCE IV Last administered on at 02:30; Start 01/16/19 at 02:30; Stop 01/16/19 at 03:29; Status DC Lorazepam (Ativan) 2 mg PRN 1X PRN IV Seizure; Start 01/16/19 at 02:00 Lorazepam (Ativan) 2 mg QID IV Last administered on 01/16/19at 08:26; Start at 09:00 Amlodipine Besylate (Norvasc) 5 mg DAILY PO Last administered on 01/16/19at 08:30 ; Start 01/16/19 at 09:00 Fluticasone Propionate (Flonase) 2 spray DAILY NS ; Start 01/16/19 at 09:00 Lactulose (Lactulose) 30 gm DAILY PO Last administered on 01/16/19at 08:27; Start 01/16/19 at 09:00 Propranolol HCl (Inderal La) 120 mg DAILY PO ; Start 01/16/19 at 09:00 Morphine Sulfate (Morphine 10mg Syringe) 10 mg QIDPRN PRN SQ SEVERE PAIN Last administered on 01/16/19at 04:38; Start 01/16/19 at 02:00 Lactated Ringer's 1,000 ml @ 1,000 mls/hr 1X ONCE IV Last administered on 01/16at 03:19; Start 01/16/19 at 03:00; Stop 01/16/19 at 03:59; Status DC Thiamine HCl (Thiamine Vial) 200 mg STK-MED ONCE IV ; Start 01/16/19 at 02:46; Stop 01/16/19 at 02:47; Status DC Multivitamins/ Minerals (Infuvite Adult) 10 ml STK-MED ONCE IV ; Start 01/16/19 at 02:46; Stop 01/16/19 at 02:47; Status DC Folic Acid (FOLIC ACID SYRINGE for ER) 5 mg STK-MED ONCE IV ; Start 01/16/19 at 02:47; Stop 01/16/19 at 02:48; Status DC Multivitamins/ Minerals 10 ml/ Folic Acid 1 mg/ Thiamine HCl 100 mg/Lactated Ringer's 1,011.2 ml @ 100 mls/ hr DAILY IV ; Start 01/17/19 at 09:00 Active Scripts Active Reported Pnv 29-1 Tablet ( Vit #76/Iron,Carb/FA) 1 Each Tablet 1 Each PO DAILY Lactulose 10 Gm/15 Ml Solution 30 Ml PO DAILYWBKFT Fluticasone Propionate Nasal [place] (Fluticasone Propionate) 16 Gm [place].susp 2 Spr NS DAILY Amlodipine Besylate 5 Mg Tablet 5 Mg PO DAILY Propranolol Hcl 120 Mg Cap.sa.24h 120 Mg PO DAILY Allergies: Coded Allergies: No Known Allergies (Verified Allergy, Unknown, 06/06/17) Review of System as per HPI with additional complaints of pain in legs and "all over" General: Alert, Oriented X3, Cooperative, No acute distress HEENT: Atraumatic, EOMI Lungs: Other Heart: Normal S1, Normal S2, Other (no obvious murmurs, no gallops, clicks or rubs) Abdomen: Normal bowel sounds, Soft Extremities: No cyanosis, Normal pulses, Other (no edema) Neuro: Normal speech, Strength at 5/5 X4 ext Psych/Mental Status: Mental status NL, Mood NL VITALS Vital Signs Date Time Temp Pulse Resp B/P (MAP) Pulse Ox O2 Delivery O2 Flow Rate FiO2 01/16/19 08:30 83 136/87 01/16/19 05:55 98.2 18 95 Nasal Cannula 2.0 Labs Laboratory Tests Test 01/16/19 00:20 01/16/19 01:20 01/16/19 01:25 01/16/19 02:58 White Blood Count 7.2 x10^3/uL (4.0-11.0) Red Blood Count 5.20 x10^6/uL (4.30-5.70) Hemoglobin 17.0 g/dL (13.0-17.5) Hematocrit 50.5 % (39.0-53.0) Mean Corpuscular Volume 97 fL (79-100) Mean Corpuscular Hemoglobin 33 pg (25-35) Mean Corpuscular Hemoglobin Concent 34 g/dL (31-37) Red Cell Distribution Width 15.2 % (11.5-14.5) Platelet Count 120 x10^3/uL (140-400) Neutrophils (%) (Auto) 41 % (31-73) Lymphocytes (%) (Auto) 51 % (24-48) Monocytes (%) (Auto) 7 % (0-9) Eosinophils (%) (Auto) 1 % (0-3) Basophils (%) (Auto) 1 % (0-3) Neutrophils # (Auto) 2.9 x10^3uL (1.8-7.7) Lymphocytes # (Auto) 3.6 x10^3/uL (1.0-4.8) Monocytes # (Auto) 0.5 x10^3/uL (0.0-1.1) Eosinophils # (Auto) 0.0 x10^3/uL (0.0-0.7) Basophils # (Auto) 0.1 x10^3/uL (0.0-0.2) Erythrocyte Sedimentation Rate 9 (0-15) Troponin I Quantitative < 0.017 ng/mL (0-0.055) Ethyl Alcohol Level 299 mg/dL (0-10) Prothrombin Time 11.8 SEC (9.4-11.4) Prothromb Time International Ratio 1.2 (0.9-1.1) Activated Partial Thromboplast Time 26 SEC (23-33) D-Dimer (Kathie) 0.70 mg/L (0.00-0.50) Sodium Level 147 mmol/L (136-145) Potassium Level 3.6 mmol/L (3.5-5.1) Chloride Level 107 mmol/L (98-107) Carbon Dioxide Level 29 mmol/L (21-32) Anion Gap 11 (6-14) Blood Urea Nitrogen 6 mg/dL (8-26) Creatinine 0.6 mg/dL (0.7-1.3) Estimated GFR (Cockcroft-Gault) 139.4 Glucose Level 109 mg/dL (70-99) Lactic Acid Level 2.4 mmol/L (0.4-2.0) Calcium Level 8.1 mg/dL (8.5-10.1) Magnesium Level 1.9 mg/dL (1.8-2.4) Total Bilirubin 0.5 mg/dL (0.2-1.0) Direct Bilirubin 0.2 mg/dL (0.0-0.2) Aspartate Amino Transf (AST/SGOT) 63 U/L (15-37) Alanine Aminotransferase (ALT/SGPT) 56 U/L (16-63) Alkaline Phosphatase 108 U/L (46-116) Ammonia 21 mcmol/L (11-34) Creatine Kinase 44 U/L (39-308) Creatine Kinase MB (Mass) 0.6 ng/mL (0.0-3.6) Creatine Kinase MB Relative Index 1.4 % (0-4) ED-Kha-G-Type Natriuretic Peptide 20 pg/mL (0-124) Total Protein 7.0 g/dL (6.4-8.2) Albumin 3.1 g/dL (3.4-5.0) Lipase 580 U/L (73-393) Urine Collection Type Unknown Urine Color Yellow Urine Clarity Clear Urine pH 7.0 Urine Specific [place] <=1.005 Urine Protein Neg (NEG-TRACE) Urine Glucose (UA) Neg mg/dL (NEG) Urine Ketones (Stick) Neg mg/dL (NEG) Urine Blood Trace (NEG) Urine Nitrite Neg (NEG) Urine Bilirubin Neg (NEG) Urine Urobilinogen Dipstick 0.2 mg/dL (0.2 mg/dL) Urine Leukocyte Esterase Neg (NEG) Urine RBC Occ /HPF (0-2) Urine WBC Occ /HPF (0-4) Urine Squamous Epithelial Cells Occ /LPF Urine Bacteria 0 /HPF (0-FEW) Urine Opiates Screen Pos (NEG) Urine Methadone Screen Neg (NEG) Urine Barbiturates Neg (NEG) Urine Phencyclidine Screen Neg (NEG) Urine Amphetamine/Methamphetamine Neg (NEG) Urine Benzodiazepines Screen Neg (NEG) Urine Cocaine Screen Pos (NEG) Urine Cannabinoids Screen Neg (NEG) Urine Ethyl Alcohol Pos (NEG) Test 01/16/19 05:35 Lactic Acid Level 2.6 mmol/L (0.4-2.0) Images acute abd series - Impression: Radiographically normal acute abdominal series. EKG - pending Assessment/Plan 1. CP, most consistent with musculoskeletal source. - CE neg x 1, check echo, lipids. Aspirin, no beta andrew due to cocaine use. cautious use of ASA with thrombocytopenia 2. CAD with prior history of PCI/Stenting - request records from [facility]. continue medical therapy. 3. polysubstance abuse including IV heroin, cocaine and ETOH - suggest withdraw protocol as per PCP 4. Elevated lipase - ? chronic pancreatitis 5. Hypertension - continue current Rx Continue supportive care, request records from [facility], await echo results. Likely poor candidate for invasive workup or intervention due to polysubstance abuse and medical non compliance. RANDALL ROMERO MD 01/16/19 3514: CONSULT Assessment/Plan Patient seen and examined. Agree with CUTTER TENDER's assessment and plan. CP with atypical features and most probably musculoskeletal. TX ruled out. Tele did not show any significant arrhythmias. 2D echo showed normal LVF without any WMA Plan ischemic evaluation with MPI to rule out ischemia and art duplex scan to evaluate leg paint as outpatient. Thank you for your consultation ANSHUL GALVAN APRN Jan 16, 2019 09:50 RANDALL ROMERO MD Jan 16, 2019 18:54
[2019-01-16 11:24] VITALS: BP 149/98
--- NOTE | 2019-01-16 13:05 | RAD ---
Bilateral lower extremity venous doppler ultrasound Indication:Bilat leg swelling and elevated d-dimer

No DVT seen in visualized veins . Technique: Color Doppler, grayscale, and spectral waveform analysis is used to evaluate the right and left lower extremity deep venous system, including the common femoral vein, superficial femoral vein, popliteal vein, and visualized calf veins. Right leg: No evidence of deep venous thrombosis. Normal response to augmentation, normal compressibility and normal phasicity is demonstrated. Visualized calf veins are patent. Left leg: No evidence of deep venous thrombosis. Normal response to augmentation, normal compressibility and normal phasicity is demonstrated. Visualized calf veins are patent. Impression: Negative for deep venous thrombosis Electronically signed by: Jose Alfredo Wesley MD (01/16/2019 1:02 PM) [id number]
[2019-01-16] MEDS: IPRATRPIUM/ALBUTEROL 0.5/2.5MG 3 ML NEBU. NEB SCH ×3 (13:37→20:41)
--- NOTE | 2019-01-16 13:40 | HP ---
ADMIT DATE: 01/16/2019 HISTORY OF PRESENT ILLNESS: The patient is a 58-year-old male patient, who came to the Emergency Room complaining of left-sided chest pain. He apparently has coded because of drug overdose, had a CPR done on 12/29/2018 due to heroin overdose from which he actually developed fractured ribs and he did complain of left lateral chest pain any time he cough or sneeze and his pain is exacerbated by movement. He did report that he has had history of myocardial infarction with stent deployment 2 years ago. In fact, we admitted him on 01/06/2019 for chest pain as well. At that time, he was actually intoxicated and was discharged without any prescription for opiates. Apparently, he has 10-year history of prescribed opiates for chronic pain, which were discontinued. In any case, he was evaluated in the Emergency Room and his cardiac enzymes were negative. His EKG showed that he was in sinus rhythm at the rate of 88 beats per minute. There is no ST segment elevation or depression. The chest x-ray showed the lungs and pleural margins are clear. The bowel gas pattern appears normal. There is no free air. The patient was admitted for chest pain, which is atypical. The patient has multiple medical problems including alcohol abuse, acute upper GI bleed, alcohol induced acute pancreatitis, chronic anemia, acute cholecystitis, cervical disk disease, cervical radiculopathy, cervicalgia, chronic hepatitis C with cirrhosis, chronic hepatitis C without hepatic coma, has chronic midline low back pain, right-sided sciatica, chronic pain syndrome, chronic right radicular pain closed, nondisplaced fracture of the fifth metatarsal bone, coronary artery disease, depression, anxiety, hypertension, hiatal hernia, hearing loss, mixed hyperlipidemia. PAST SURGICAL HISTORY: Significant for cardiac catheterization, cholecystectomy laparoscopically with cholangiogram, esophagogastroduodenoscopy, underwent also endoscopic retrograde cholangiopancreatography with sphincterotomy and surgery, hernia repair, mandibular surgery, orbital fracture, status post open reduction and internal fixation, has also had orchiopexy. FAMILY HISTORY: Significant for leukemia in his father, myelodysplastic syndrome and heart disease in his mother. SOCIAL HISTORY: Apparently, he is . He does not smoke or use smokeless tobacco; however, he drinks up to 56 cans of beer per week. ALLERGIES: He has no known drug allergies. MEDICATIONS: He is currently on propranolol 120 mg extended release once a day, amlodipine 5 mg once a day, lactulose 30 mL daily with breakfast, Flonase 2 sprays to each nostril once a day, and multivitamin 1 tablet once a day. PHYSICAL EXAMINATION: GENERAL: On arrival to the hospital, he looked well and was clearly in no apparent respiratory distress. He definitely looks plethoric, no jaundice, cyanosis, or thyromegaly. No jugular venous distension. No limb edema. VITAL SIGNS: His heart rate was 80, blood pressure was 152/94, temperature was 97.9, respiratory rate 20, and oxygen saturation was 94% on 2 liters of oxygen. HEAD, EYES, EARS, NOSE, AND THROAT: Showed normocephalic, atraumatic. NECK: Supple. HEART: Showed normal first and second heart sounds. No gallop, rub or murmur. CHEST: Clear to auscultation. No crepitation or rhonchi. ABDOMEN: Distended, soft, nontender. No guarding or rigidity. No organomegaly. All hernial orifice intact. Bowel sounds normal. NEUROLOGIC: He was awake, alert, responding appropriately. Extraocular movements intact. EXTREMITIES: He moves extremities without difficulty. LABORATORY DATA: Showed a white cell count is 7200, hemoglobin 17, hematocrit 50, MCV 97 and platelet count of 33, MCV 97, and platelet count 120,000. His serum sodium was 147, potassium 3.6, chloride 107, bicarbonate 29, anion gap of 11, BUN 6, creatinine 0.6, estimated GFR was 139 mL per minute, his glucose 109, calcium was 8.1, lactic acid was 2.6, magnesium was 1.9. Total bilirubin, AST, ALT, alkaline phosphatase were normal. His ammonia was 21. CK, CK-MB and troponin was within less than 0.017. His total protein was 7 and albumin was 3.1. Lipase was 580. Urinalysis showed the urine was yellow, clear with a pH of 7, specific gravity 1.005. The urine was negative for protein, glucose, ketones. There was trace of blood, negative for nitrite and leukocyte is clear. There are no rbc's and no wbc's, and no bacteria. His tox screen was positive for opiates and his blood alcohol level was high at 299. His toxic screen was positive also for cocaine. PLAN: My plan is to do 2 more sets of cardiac enzymes. He has seen already by the Cardiology team and recommended an echocardiogram and if all is negative, he will be discharged home. I offered him to refer him to a pain management clinic, but I will definitely not prescribe any narcotics for him. MARGE GARCIA MD DR: SOFIA/francis JOB#: [id number] / [id number]
--- NOTE | 2019-01-16 14:17 | CARD ---
MR#: [id number] Date of Study: 01/16/2019 Ordering Physician: ANSHUL GALVAN, Referring Physician: MARGE GARCIA, Tech: Nery Coronado APPROVED REPORT EXAM: Two-dimensional and M-mode echocardiogram with Doppler and color Doppler. Other Information Quality : FairHR: 93bpm INDICATION Chest Pain 2D DIMENSIONS RVDd4.6 (2.9-3.5cm)Left Atrium(2D)4.1 (1.6-4.0cm) IVSd1.3 (0.7-1.1cm)Aortic Root(2D)3.3 (2.0-3.7cm) LVDd5.2 (3.9-5.9cm)LVOT Diameter2.3 (1.8-2.4cm) PWd1.4 (0.7-1.1cm)LVDs3.4 (2.5-4.0cm) FS (%) 35.4 %SV83.2 ml LVEF(%)64.4 (>50%) Aortic Valve AoV Peak Jay.148.5cm/sAoV VTI31.7cm AO Peak GR.8.8mmHgLVOT Peak Jay.104.2cm/s LVOT VTI 20.68cmAO Mean GR.5mmHg VINNIE (VMAX)2.98qe2OBN (VTI)2.64cm2 Mitral Valve MV E Vbuvrlqe16.9cm/sMV DECEL TBKO956iz MV A Orsqpnea48.9cm/sE/A Ratio1.0 Pulmonary Valve PV Peak Xlnpqnxq896.2cm/sPV Peak Grad.5mmHg Tricuspid Valve TR P. Pvbcvuwt045tc/sRAP TVEPVRJU3gtDx TR Peak Gr.53bbXlUUQS54azPu LEFT VENTRICLE The left ventricle is normal size. There is moderate concentric left ventricular hypertrophy. The lef t ventricular systolic function is normal. The Ejection Fraction is 60%. There is normal LV segmental wall motion. RIGHT VENTRICLE The right ventricle is mildly dilated. There is normal right ventricular wall thickness. Systolic fun ction is borderline reduced. ATRIA The left atrium is borderline dilated. The right atrium size is normal. The interatrial septum is int act with no evidence for an atrial septal defect or patent foramen ovale as noted on 2-D or Doppler i maging. AORTIC VALVE The aortic valve is normal in structure and function. Doppler and Color Flow revealed no significant aortic regurgitation. There is no significant aortic valvular stenosis. MITRAL VALVE The mitral valve is normal in structure and function. There is no evidence of mitral valve prolapse. There is no mitral valve stenosis. Doppler and Color Flow revealed no mitral valve regurgitation note d. TRICUSPID VALVE The tricuspid valve is normal in structure and function. Doppler and Color Flow revealed trace tricus pid valve regurgitation noted with an estimated PAP of 28 mmHg. There is no tricuspid valve stenosis. PULMONIC VALVE The pulmonic valve is not well visualized. Doppler and Color Flow revealed no pulmonic valvular regur gitation. GREAT VESSELS The aortic root is normal in size. The IVC was not visualized. PERICARDIAL EFFUSION There is no evidence of significant pericardial effusion. Critical Notification Critical Value: No <Conclusion> The left ventricular systolic function is normal. The Ejection Fraction is 60%. There is normal LV segmental wall motion. Trace tricuspid valve regurgitation noted with an estimated PAP of 28 mmHg. There is no evidence of significant pericardial effusion. Signed by : Jefferson García, Electronically Approved : 01/16/2019 14:16:42
--- NOTE | 2019-01-16 14:47 | RAD ---
EXAM: Left ribs, 3 views. HISTORY: Pain after CPR. COMPARISON: CT dated 08/11/2012 and radiographs dated 01/05/2019. FINDINGS: 4 views of the left ribs are obtained.. No acute rib fracture is seen. There is no pneumothorax or pleural effusion. The heart is normal in size. IMPRESSION: No acute osseous finding. Electronically signed by: Hilaria Gonsalez MD (01/16/2019 2:44 PM) [id number]
[2019-01-16 15:01] VITALS: BP 161/99
[2019-01-16] MEDS ORDERED: GABA-585 PO (15:17)
[2019-01-16] MEDS ORDERED: IOHEXOL 350 MG/ML 100 ML VIAL. IV ONE (16:00)
[2019-01-16] MEDS ORDERED: chlordiazePOXIDE HCL 25 MG CAPSULE PO PRN ×2 (17:45)
--- NOTE | 2019-01-16 17:59 | RAD ---
PQRS Compliance statement: One or more of the following individualized dose reduction techniques were utilized for this examination: 1. Automated exposure control. 2. Adjustment of the mA and/or kV according to patient size. 3. Use of iterative reconstruction technique. Indication:Omni 350 100cc: PE protocol: Left sided chest pain, elevated d-dimer, Chest compressions done on him last week per patient. Hx: COPD, CAD, HTN TECHNIQUE: CT angiogram of the chest with IV contrast with multiplanar MIP reformats. COMPARISON:None FINDINGS: Suboptimal PE study due to contrast bolus timing. No large central filling defects seen. Laceration of segmental and subsegmental pulmonary arteries is limited. Heart is normal in size. No pericardial or pleural effusion. No enlarged axillary, mediastinal or hilar adenopathy. Central airways are patent. Bibasilar dependent atelectasis or scarring is seen. 3 mm nodule is seen in the right minor fissure (series 3 image 56) (. Cirrhotic morphology of the liver is seen. Spleen is enlarged measuring 18 cm. Otherwise, visualized sections through the pancreas, adrenals and kidneys within normal limits. Nondisplaced hairline fractures are seen of the left anterior third, fourth, fifth, sixth ribs. IMPRESSION: 1. Suboptimal PE study due to contrast bolus timing. No large central PE. Evaluation of segmental and subsegmental pulmonary arteries is limited. 2. Multiple left anterior upper rib fractures. 3. Cirrhosis with portal venous hypertension. Electronically signed by: Ace Torres DO (01/16/2019 5:57 PM) [facility]
--- NOTE | 2019-01-16 18:06 | DS ---
DATE OF DISCHARGE: 01/16/2019 HISTORY OF PRESENT ILLNESS: The patient came to the Emergency Room complaining of chest pain, left-sided. He was resuscitated on 12/29/2018, as he had cardiac arrest due to heroin overdose for which he received CPR and he personally experienced fractured ribs and he came complaining of chest pain that is fairly atypical. We did 2 sets of cardiac enzymes that were negative. For view the left ribs are obtained, no acute rib fracture is seen. There is no pneumothorax or pleural effusion. The heart is normal in size. He has an echocardiogram done showed that his left ventricular systolic function is normal, ejection fraction 60%. There is normal left ventricular segmental wall motion, trace tricuspid valve regurgitation, but estimated pulmonary artery pressure of 28 mmHg. There is no evidence of significant pericardial effusion. He also complained of severe pain, neuropathic in both lower extremities and apparently he was offered Neurontin before at [facility], but I am not sure that he ever tried it before. When he came to our Emergency Room, he was intoxicated. His blood alcohol level was 299 and his toxic screen was positive for opiates and cocaine as he remains stable with no evidence of myocardial infarction. No rib fracture and normal left ventricular systolic function. A decision was made to discharge him home. I gave him a prescription for Neurontin and offered to make an appointment for him and in fact to faxed all the information to Dr. Fortino Roa for him to be seen there for pain management. PHYSICAL EXAMINATION: GENERAL: When I saw him this afternoon, he was sitting at the edge of the bed comfortably in no apparent distress. There is no pallor, jaundice, cyanosis, or thyromegaly. No jugular venous distension. No limb edema. VITAL SIGNS: His heart rate was 83, blood pressure was 161/99, temperature was 97.8, respiratory rate was 18, and oxygen saturation was 92%. HEAD, EYES, EARS, NOSE AND THROAT: Normocephalic, atraumatic. NECK: Supple. HEART: Showed normal first and second heart sounds. No gallop, rub or murmur. CHEST: Clear to auscultation. No crepitation or rhonchi. ABDOMEN: Distended, soft, nontender. NEUROLOGIC: He was awake, alert, responding appropriately. Cranial nerves intact. EXTREMITIES: He moves extremities without difficulty. LABORATORY DATA: As of this morning showed a white cell count 7200, hemoglobin 17, hematocrit 50, MCV 97 and platelet count of 120,000. Serum sodium 147, potassium 3.6, chloride 107, bicarbonate 29, anion gap of 11, BUN 6, creatinine 0.6, estimated GFR was 139 mL per minute. His lactic acid was 2.6, calcium was 8.1, magnesium was 1.9. Total bilirubin, AST, ALT, alkaline phosphatase were normal. Total protein was 7, albumin was 3.1. His serum triglycerides were 44, total cholesterol was 128, LDL cholesterol was 37, VLDL was 8, and HDL cholesterol was 63 and the ratio was 2. His lipase was 580. TSH was 0.946. His prothrombin time was 11.8, INR of 1.2, APTT was 26 and D-dimer was 0.7. His urinalysis was essentially unremarkable. Toxic screen was positive for opiates, cocaine, and alcohol. DISCHARGE MEDICATIONS: He was discharged home to continue on all his medication including gabapentin 200 mg 3 times a day, amlodipine 5 mg once a day, Flonase 2 sprays to each nostril once a day, lactulose 30 mL p.o. daily with breakfast, 1 tablet once a day and propranolol 120 mg daily. FINAL DISCHARGE DIAGNOSES: Chest pain, myocardial infarction was ruled out. His left-sided rib view showed no evidence of fracture. He has no evidence of deep vein thrombosis, normal response to augmentation, compressibility and normal phasicity demonstrated visualized calf veins are patent. MARGE GARCIA MD DR: SOFIA/francis JOB#: [id number] / [id number]
[2019-01-16 19:32] VITALS: BP 157/99
[2019-01-16] MEDS: GABAPENTIN 100 MG CAPSULE. PO SCH (21:10)
[2019-01-16 23:02] VITALS: BP 153/105
[2019-01-16] MEDS: cloNIDine HCL 0.1 MG TABLET PO PRN (23:41)
[2019-01-17 00:31] VITALS: BP 147/96
[2019-01-17] MEDS: IPRATRPIUM/ALBUTEROL 0.5/2.5MG 3 ML NEBU. NEB SCH (04:51)
[2019-01-17 05:29] VITALS: BP 149/98
[2019-01-17 06:24] LABS: BASO % 1 % (0-3); EOS % 1 % (0-3); HEMATOCRIT 44.3 % (39.0-53.0); HEMOGLOBIN 15.1 g/dL (13.0-17.5); LYMPH # 1.2 x10^3/uL (1.0-4.8); LYMPH % 37 % (24-48); MEAN CORPUSCULAR HEMOGLOBIN 33 pg (25-35); MEAN CORPUSCULAR HGB CONC 34 g/dL (31-37); MEAN CORPUSCULAR VOLUME 97 fL (79-100); MONO # 0.4 x10^3/uL (0.0-1.1); MONO % 13 % (0-9); NEUT # 1.6 x10^3uL (1.8-7.7); NEUT % 49 % (31-73); PLATELET COUNT 55 x10^3/uL (140-400); RED BLOOD COUNT 4.57 x10^6/uL (4.30-5.70); RED CELL DISTRIBUTION WIDTH 15.2 % (11.5-14.5); WHITE BLOOD COUNT 3.2 x10^3/uL (4.0-11.0)
[2019-01-17 06:39] LABS: ALBUMIN 3.1 g/dL (3.4-5.0); ALBUMIN/GLOBULIN RATIO 0.8 (1.0-1.7); CALCIUM 8.4 mg/dL (8.5-10.1); CREATININE 0.6 mg/dL (0.7-1.3); GFR 139.4; POTASSIUM 3.4 mmol/L (3.5-5.1); TOTAL BILIRUBIN 1.5 mg/dL (0.2-1.0); TOTAL PROTEIN 6.8 g/dL (6.4-8.2)
--- NOTE | 2019-01-17 06:39 | EKG ---
[address] [address] Test Date: 2019-01-16 Test Time: 00:33:10 Pat Name: DEAN BELL Department: Room: 123 B Gender: M Hand Iii Cutter: : [id number] Requested By: DEAN GAYTAN Order Number: [id number] Reading MD: Sundeep Dodson MD Measurements Intervals [place] Rate: 88 P: 0 [place]: 100 QRS: 2 QRSD: 90 T: 22 QT: 356 QTc: 434 Interpretive Statements SINUS RHYTHM BASELINE ARTIFACT NON-SPECIFIC ST/T CHANGES Electronically Signed On 01-17-2019 8:34:18 CDT by Sundeep Dodson MD
[2019-01-17] MEDS ORDERED: LACTULOSE 20 GM/30 ML SOLUTION. PO SCH (08:00)
[2019-01-17] MEDS: GABAPENTIN 100 MG CAPSULE. PO SCH (08:21)
[2019-01-17] MEDS ORDERED: amLODIPine BESYLATE 5 MG TABLET PO SCH (09:00)
[2019-01-17] MEDS ORDERED: PRENATAL MULTIVITAMIN TABLET. PO SCH (09:00)
[2019-01-17] MEDS ORDERED: FLUTICASONE 50MCG/NASAL SPRAY 16GM BOTTLE. NS SCH (09:00)
[2019-01-17] MEDS ORDERED: MVI, ADULT NO.4 WITH VIT K 10 ML, FOLIC ACID SYRINGE for ER 1 MG, THIAMINE INJ 100 MG i... IV SCH ×4 (09:00)
[2019-01-17] MEDS ORDERED: PROPRANOLOL ER 60 MG CAP.SA.24H. PO SCH (09:00)
--- NOTE | 2019-01-17 09:07 | PDOC ---
PROGRESS NOTES Assessment 1. CP, most consistent with musculoskeletal source. - UT ruled out. Echo with normal LVEF and wall motion. Aspirin, no beta andrew due to cocaine use. cautious use of ASA with thrombocytopenia. outpatient MPI for progression of CAD. 2. CAD with prior history of PCI/Stenting - request records from [facility]. continue medical therapy. MPI as above. 3. polysubstance abuse including IV heroin, cocaine and ETOH - suggest withdraw protocol as per PCP and cessation encouraged. 4. Elevated lipase - ? chronic pancreatitis - per PCP 5. Hypertension - continue current Rx 6. 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 outpatient arterial duplex to rule out PAD Subjective no chest pain, dyspnea or palps. c/o nausea this am Objective echo- The left ventricular systolic function is normal. The Ejection Fraction is 60%. There is normal LV segmental wall motion. Trace tricuspid valve regurgitation noted with an estimated PAP of 28 mmHg. There is no evidence of significant pericardial effusion. Vital Signs Date Time Temp Pulse Resp B/P (MAP) Pulse Ox O2 Delivery O2 Flow Rate FiO2 01/17/19 08:22 78 149/98 01/17/19 08:20 Room Air 01/17/19 05:29 98.1 20 92 01/16/19 05:55 2.0 Intake and Output 01/17/19 06:59 Intake Total 1220 ml Output Total 700 ml Balance 520 ml Intake Oral 1220 ml Output Urine Total 700 ml # Voids 4 # Bowel Movements 2 Physical Exam gen: awake, alert, NAD CV: RRR, No S3/S4, no clicks or rubs Lungs: decreased bases otherwise clear abd:+bowel sounds Ext: no edema, +pulses Review of Relevant I have reviewed the following items ivana (where applicable) has been applied. Labs Laboratory Tests Test 01/16/19 00:20 01/16/19 01:20 01/16/19 01:25 01/16/19 02:58 White Blood Count 7.2 x10^3/uL (4.0-11.0) Red Blood Count 5.20 x10^6/uL (4.30-5.70) Hemoglobin 17.0 g/dL (13.0-17.5) Hematocrit 50.5 % (39.0-53.0) Mean Corpuscular Volume 97 fL (79-100) Mean Corpuscular Hemoglobin 33 pg (25-35) Mean Corpuscular Hemoglobin Concent 34 g/dL (31-37) Red Cell Distribution Width 15.2 % (11.5-14.5) Platelet Count 120 x10^3/uL (140-400) Neutrophils (%) (Auto) 41 % (31-73) Lymphocytes (%) (Auto) 51 % (24-48) Monocytes (%) (Auto) 7 % (0-9) Eosinophils (%) (Auto) 1 % (0-3) Basophils (%) (Auto) 1 % (0-3) Neutrophils # (Auto) 2.9 x10^3uL (1.8-7.7) Lymphocytes # (Auto) 3.6 x10^3/uL (1.0-4.8) Monocytes # (Auto) 0.5 x10^3/uL (0.0-1.1) Eosinophils # (Auto) 0.0 x10^3/uL (0.0-0.7) Basophils # (Auto) 0.1 x10^3/uL (0.0-0.2) Erythrocyte Sedimentation Rate 9 (0-15) Troponin I Quantitative < 0.017 ng/mL (0-0.055) Ethyl Alcohol Level 299 mg/dL (0-10) Prothrombin Time 11.8 SEC (9.4-11.4) Prothromb Time International Ratio 1.2 (0.9-1.1) Activated Partial Thromboplast Time 26 SEC (23-33) D-Dimer (Kathie) 0.70 mg/L (0.00-0.50) Sodium Level 147 mmol/L (136-145) Potassium Level 3.6 mmol/L (3.5-5.1) Chloride Level 107 mmol/L (98-107) Carbon Dioxide Level 29 mmol/L (21-32) Anion Gap 11 (6-14) Blood Urea Nitrogen 6 mg/dL (8-26) Creatinine 0.6 mg/dL (0.7-1.3) Estimated GFR (Cockcroft-Gault) 139.4 Glucose Level 109 mg/dL (70-99) Lactic Acid Level 2.4 mmol/L (0.4-2.0) Calcium Level 8.1 mg/dL (8.5-10.1) Magnesium Level 1.9 mg/dL (1.8-2.4) Total Bilirubin 0.5 mg/dL (0.2-1.0) Direct Bilirubin 0.2 mg/dL (0.0-0.2) Aspartate Amino Transf (AST/SGOT) 63 U/L (15-37) Alanine Aminotransferase (ALT/SGPT) 56 U/L (16-63) Alkaline Phosphatase 108 U/L (46-116) Ammonia 21 mcmol/L (11-34) Creatine Kinase 44 U/L (39-308) Creatine Kinase MB (Mass) 0.6 ng/mL (0.0-3.6) Creatine Kinase MB Relative Index 1.4 % (0-4) WM-Adg-J-Type Natriuretic Peptide 20 pg/mL (0-124) Total Protein 7.0 g/dL (6.4-8.2) Albumin 3.1 g/dL (3.4-5.0) Lipase 580 U/L (73-393) Thyroid Stimulating Hormone (TSH) 0.946 uIU/mL (0.358-3.740) Urine Collection Type Unknown Urine Color Yellow Urine Clarity Clear Urine pH 7.0 Urine Specific [place] <=1.005 Urine Protein Neg (NEG-TRACE) Urine Glucose (UA) Neg mg/dL (NEG) Urine Ketones (Stick) Neg mg/dL (NEG) Urine Blood Trace (NEG) Urine Nitrite Neg (NEG) Urine Bilirubin Neg (NEG) Urine Urobilinogen Dipstick 0.2 mg/dL (0.2 mg/dL) Urine Leukocyte Esterase Neg (NEG) Urine RBC Occ /HPF (0-2) Urine WBC Occ /HPF (0-4) Urine Squamous Epithelial Cells Occ /LPF Urine Bacteria 0 /HPF (0-FEW) Urine Opiates Screen Pos (NEG) Urine Methadone Screen Neg (NEG) Urine Barbiturates Neg (NEG) Urine Phencyclidine Screen Neg (NEG) Urine Amphetamine/Methamphetamine Neg (NEG) Urine Benzodiazepines Screen Neg (NEG) Urine Cocaine Screen Pos (NEG) Urine Cannabinoids Screen Neg (NEG) Urine Ethyl Alcohol Pos (NEG) Test 01/16/19 05:35 01/16/19 13:45 01/16/19 15:45 01/17/19 06:11 Lactic Acid Level 2.6 mmol/L (0.4-2.0) 1.8 mmol/L (0.4-2.0) Triglycerides Level 44 mg/dL (0-150) Cholesterol Level 128 mg/dL (0-200) LDL Cholesterol, Calculated 57 mg/dL (0-100) VLDL Cholesterol, Calculated 8 mg/dL (0-40) Non-HDL Cholesterol Calculated 65 mg/dL (0-129) HDL Cholesterol 63 mg/dL (40-60) Cholesterol/HDL Ratio 2.0 Troponin I Quantitative < 0.017 ng/mL (0-0.055) White Blood Count 3.2 x10^3/uL (4.0-11.0) Red Blood Count 4.57 x10^6/uL (4.30-5.70) Hemoglobin 15.1 g/dL (13.0-17.5) Hematocrit 44.3 % (39.0-53.0) Mean Corpuscular Volume 97 fL (79-100) Mean Corpuscular Hemoglobin 33 pg (25-35) Mean Corpuscular Hemoglobin Concent 34 g/dL (31-37) Red Cell Distribution Width 15.2 % (11.5-14.5) Platelet Count 55 x10^3/uL (140-400) Neutrophils (%) (Auto) 49 % (31-73) Lymphocytes (%) (Auto) 37 % (24-48) Monocytes (%) (Auto) 13 % (0-9) Eosinophils (%) (Auto) 1 % (0-3) Basophils (%) (Auto) 1 % (0-3) Neutrophils # (Auto) 1.6 x10^3uL (1.8-7.7) Lymphocytes # (Auto) 1.2 x10^3/uL (1.0-4.8) Monocytes # (Auto) 0.4 x10^3/uL (0.0-1.1) Eosinophils # (Auto) 0.0 x10^3/uL (0.0-0.7) Basophils # (Auto) 0.0 x10^3/uL (0.0-0.2) Sodium Level 140 mmol/L (136-145) Potassium Level 3.4 mmol/L (3.5-5.1) Chloride Level 102 mmol/L (98-107) Carbon Dioxide Level 30 mmol/L (21-32) Anion Gap 8 (6-14) Blood Urea Nitrogen 7 mg/dL (8-26) Creatinine 0.6 mg/dL (0.7-1.3) Estimated GFR (Cockcroft-Gault) 139.4 BUN/Creatinine Ratio 12 (6-20) Glucose Level 108 mg/dL (70-99) Calcium Level 8.4 mg/dL (8.5-10.1) Total Bilirubin 1.5 mg/dL (0.2-1.0) Aspartate Amino Transf (AST/SGOT) 53 U/L (15-37) Alanine Aminotransferase (ALT/SGPT) 52 U/L (16-63) Alkaline Phosphatase 104 U/L (46-116) Total Protein 6.8 g/dL (6.4-8.2) Albumin 3.1 g/dL (3.4-5.0) Albumin/Globulin Ratio 0.8 (1.0-1.7) Lipase 388 U/L (73-393) Microbiology 01/16/19 Blood Culture - Preliminary, Resulted NO GROWTH AFTER 1 DAY... Medications Current Medications Aspirin (Children'S Aspirin) 324 mg 1X ONCE PO Last administered on 01/16/19at 00:54; Start 01/16/19 at 01:00; Stop 01/16/19 at 01:01; Status DC Sodium Chloride 1,000 ml @ 100 mls/hr Q10H IV Last administered on 01/16/19at 00 :55; Start 01/16/19 at 01:00; Stop 01/16/19 at 10:59; Status DC Morphine Sulfate (Morphine 10mg Syringe) 10 mg 1X ONCE SQ Last administered on 01/16/19at 00:54; Start 01/16/19 at 01:00; Stop 01/16/19 at 13:09; Status DC Ondansetron HCl (Zofran) 4 mg PRN Q4HRS PRN IV NAUSEA/VOMITING Last administered on 01/16/19at 22:57; Start 01/16/19 at 02:00; Stop 01/17/19 at 01:59; Status DC Albuterol/ Ipratropium (Duoneb) 3 ml RTQID NEB Last administered on 01/17/19at 04 :51; Start 01/16/19 at 08:00; Stop 01/17/19 at 07:59; Status DC Multivitamins/ Minerals 10 ml/ Folic Acid 1 mg/ Thiamine HCl 100 mg/Lactated Ringer's 1,011.2 ml @ 1,011.2 mls/hr 1X ONCE IV Last administered on at 02:30; Start 01/16/19 at 02:30; Stop 01/16/19 at 03:29; Status DC Lorazepam (Ativan) 2 mg PRN 1X PRN IV Seizure; Start 01/16/19 at 02:00 Lorazepam (Ativan) 2 mg QID IV Last administered on 01/16/19at 08:26; Start at 09:00; Stop 01/16/19 at 16:30; Status DC Amlodipine Besylate (Norvasc) 5 mg DAILY PO Last administered on 01/16/19at 08:30 ; Start 01/16/19 at 09:00; Stop 01/16/19 at 13:11; Status DC Fluticasone Propionate (Flonase) 2 spray DAILY NS Last administered on at 10:16; Start 01/16/19 at 09:00; Stop 01/16/19 at 13:10; Status DC Lactulose (Lactulose) 30 gm DAILY PO Last administered on 01/16/19at 08:27; Start 01/16/19 at 09:00; Stop 01/16/19 at 13:10; Status DC Propranolol HCl (Inderal La) 120 mg DAILY PO Last administered on 01/16/19at 10: 15; Start 01/16/19 at 09:00; Stop 01/16/19 at 13:11; Status DC Morphine Sulfate (Morphine 10mg Syringe) 10 mg QIDPRN PRN SQ SEVERE PAIN Last administered on 01/16/19at 12:20; Start 01/16/19 at 02:00 Lactated Ringer's 1,000 ml @ 1,000 mls/hr 1X ONCE IV Last administered on 01/16at 03:19; Start 01/16/19 at 03:00; Stop 01/16/19 at 03:59; Status DC Thiamine HCl (Thiamine Vial) 200 mg STK-MED ONCE IV ; Start 01/16/19 at 02:46; Stop 01/16/19 at 02:47; Status DC Multivitamins/ Minerals (Infuvite Adult) 10 ml STK-MED ONCE IV ; Start 01/16/19 at 02:46; Stop 01/16/19 at 02:47; Status DC Folic Acid (FOLIC ACID SYRINGE for ER) 5 mg STK-MED ONCE IV ; Start 01/16/19 at 02:47; Stop 01/16/19 at 02:48; Status DC Multivitamins/ Minerals 10 ml/ Folic Acid 1 mg/ Thiamine HCl 100 mg/Lactated Ringer's 1,011.2 ml @ 100 mls/ hr DAILY IV ; Start 01/17/19 at 09:00 Amlodipine Besylate (Norvasc) 5 mg DAILY PO Last administered on 01/17/19 08:21 ; Start 01/17/19 at 09:00 Fluticasone Propionate (Flonase) 2 spray DAILY NS Last administered on 08:22; Start 01/17/19 at 09:00 Lactulose (Lactulose) 20 gm DAILYWBKFT PO Last administered on 01/17/19 08:21; Start 01/17/19 at 08:00 Multivit/ Folic Acid/Iron (Multivitamin ) 1 tab DAILY PO Last administered on 01/17/19 08:21; Start 01/17/19 at 09:00 Propranolol HCl (Inderal La) 120 mg DAILY PO Last administered on 01/17/19 08: 22; Start 01/17/19 at 09:00 Gabapentin (Neurontin) 200 mg TID PO Last administered on 01/17/19 08:21; Start 01/16/19 at 21:00 Iohexol (Omnipaque 350 Mg/ml) 100 ml 1X ONCE IV Last administered on 01/16/19at 17:12; Start 01/16/19 at 16:00; Stop 01/16/19 at 16:01; Status DC Chlordiazepoxide (Librium) 50 mg PRN Q1HR PRN PO For CIWA 8-14 Last administered on 01/17/19 08:26; Start 01/16/19 at 17:45 Chlordiazepoxide (Librium) 100 mg PRN Q1HR PRN PO For CIWA 15 or greater; Start 01/16/19 at 17:45 Lorazepam (Ativan) 2 mg PRN Q2HR PRN IV For CIWA 8-14 Last administered on at 00:26; Start 01/16/19 at 17:45 Lorazepam (Ativan) 4 mg PRN Q2HR PRN IV For CIWA 15 or greater; Start 01/16/19 at 17:45 Clonidine HCl (Catapres) 0.1 mg PRN Q1HR PRN PO SBP>180 OR DBP>100, MR X 3 Last administered on 01/16/19at 23:41; Start 01/16/19 at 17:45 Active Scripts Active Neurontin (Gabapentin) 100 Mg Capsule 200 Mg PO TID 30 Days Reported Pnv 29-1 Tablet ( Vit #76/Iron,Carb/FA) 1 Each Tablet 1 Each PO DAILY Lactulose 10 Gm/15 Ml Solution 30 Ml PO [id number] Fluticasone Propionate Nasal Grassflat (Fluticasone Propionate) 16 Gm Grassflat.susp 2 Spr NS DAILY Amlodipine Besylate 5 Mg Tablet 5 Mg PO DAILY Propranolol Hcl 120 Mg Cap.sa.24h 120 Mg PO DAILY Vitals/I & O Vital Sign - Last 24 Hours 01/16/19 01/16/19 01/16/19 01/16/19 10:15 11:24 13:41 15:01 Temp 98.0 97.8 Pulse 83 95 83 Resp 20 18 B/P (MAP) 136/87 149/98 (115) 161/99 (119) Pulse Ox 92 91 92 O2 Delivery Room Air Room Air Room Air 01/16/19 01/16/19 01/16/19 01/16/19 17:26 19:32 20:00 20:42 Temp 98.0 Pulse 81 Resp 20 B/P (MAP) 157/99 (118) Pulse Ox 91 91 92 O2 Delivery Room Air Room Air Room Air Room Air 01/16/19 01/16/19 01/17/19 01/17/19 23:02 23:41 00:31 04:52 Temp 97.8 Pulse 81 81 76 Resp 20 18 B/P (MAP) 153/105 (121) 153/105 147/96 (113) Pulse Ox 93 91 92 O2 Delivery Room Air Room Air Room Air 01/17/19 01/17/19 01/17/19 01/17/19 05:29 08:20 08:21 08:22 Temp 98.1 Pulse 78 78 78 Resp 20 B/P (MAP) 149/98 (115) 149/98 149/98 Pulse Ox 92 O2 Delivery Room Air Room Air Intake and Output 01/16/19 01/16/19 01/17/19 14:59 22:59 06:59 Intake Total 780 ml 440 ml Output Total 700 ml Balance 80 ml 440 ml ANSHUL GALVAN [employer] STAFF Jan 17, 2019 09:06
[2019-01-17] MEDS: cloNIDine HCL 0.1 MG TABLET PO PRN (10:58)
[2019-01-17 11:00] VITALS: BP 148/95
[2019-01-17 11:01] VITALS: BP 147/92
[2019-01-17 11:02] VITALS: BP 175/108
[2019-01-17 11:03] VITALS: BP 158/106
[2019-01-17] MEDS ORDERED: ONDANSETRON ODT 4 MG TAB.RAPDIS PO PRN (11:15)
[2019-01-17] MEDS ORDERED: PREG100C PO (12:45)
[2019-01-17] MEDS ORDERED: PREG50CA PO (12:45)
--- NOTE | 2019-01-17 16:56 | DS ---
DATE OF DISCHARGE: 01/17/2019 HOSPITAL COURSE: The patient was admitted with a complaint of chest pain following CPR done on 12/29/2018 as he went into cardiac arrest following an overdose and we actually evaluated him before for the same problem and he also complained of severe bilateral lower extremity pain; however, given that he has continued to abuse narcotics including cocaine, opiates and alcohol. I explained to him the only thing I can give him is either Cymbalta, Lyrica, or Neurontin; however, he and his agree to go home on hospice given that he has also advanced end-stage liver disease due to hepatitis C. PHYSICAL EXAMINATION: GENERAL: When I saw him this afternoon, he was resting slightly propped up in bed, in no apparent respiratory distress. There is no pallor, jaundice, cyanosis, or thyromegaly. No jugular venous distension. No limb edema. VITAL SIGNS: His heart rate was 83, blood pressure was 148/95, temperature was 97.7, respiratory rate 20, and oxygen saturation was 93%. HEAD, EYES, EARS, NOSE AND THROAT: Normocephalic, atraumatic. NECK: Supple. HEART: Showed normal first and second heart sounds. No gallop, rub or murmur. CHEST: Clear to auscultation. No crepitation or rhonchi. ABDOMEN: Distended, soft, nontender. No guarding or rigidity. No organomegaly. All hernial orifices are intact. Bowel sounds normal. NEUROLOGIC: He was awake, alert, responding appropriately. All cranial nerves are intact. He moves extremities without difficulty, though he has difficulty walking because of pain. LABORATORY DATA: His lab work this morning showed a white cell count of 3200, hemoglobin 15, hematocrit 44, MCV 97 and platelet count of 55,000. His chemistry showed a serum sodium 140, potassium 3.4, chloride 102, bicarbonate 30, anion gap of 8, BUN 7, creatinine 0.6, estimated GFR was 139 mL per minute, his glucose 108, calcium was 8.4. Total bilirubin, AST, ALT, alkaline phosphatase were normal. Total protein was 6.8, albumin 3.1. His lipase was 388. His serum triglycerides 44, total cholesterol was 128, LDL was 57, VLDL was 8, HDL cholesterol was 63 and the ratio was 2. DISCHARGE MEDICATIONS: The patient will be discharged home on hospice. I will give him a prescription for Lyrica, should continue with other medication including amlodipine 5 mg once a day, Flonase 2 sprays each nostril once a day, lactulose 30 mL twice a day, multivitamin 1 tablet once a day and propranolol 120 mg daily. FINAL DISCHARGE DIAGNOSES: 1. Left-sided chest pain due to multiple rib fractures secondary to attempted CPR. 2. Advanced alcoholic hepatitis C liver disease. 3. 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 MARGE GARCIA MD DR: SOFIA/francis JOB#: [id number] / [id number]
== END 2019-01-17 13:50 | disposition hospice, home (50) ==
LOC: ER 00:02 → 1 SOUTH 01:00 → INTOOBSV 01:00
PROVIDERS: ADMIT Internal Medicine; ATTEND Internal Medicine
DX: S22.49XA Multiple fractures of ribs, unspecified side, initial encounter for closed fracture (principal); K70.10 Alcoholic hepatitis without ascites; I46.9 Cardiac arrest, cause unspecified; I25.2 Old myocardial infarction; I25.10 Atherosclerotic heart disease of native coronary artery without angina pectoris; I10 Essential (primary) hypertension; J44.9 Chronic obstructive pulmonary disease, unspecified; D64.9 Anemia, unspecified; D69.6 Thrombocytopenia, unspecified; E11.40 Type 2 diabetes mellitus with diabetic neuropathy, unspecified; E78.00 Pure hypercholesterolemia, unspecified; E78.5 Hyperlipidemia, unspecified; F10.10 Alcohol abuse, uncomplicated; F11.90 Opioid use, unspecified, uncomplicated; F14.90 Cocaine use, unspecified, uncomplicated; G47.33 Obstructive sleep apnea (adult) (pediatric); G89.29 Other chronic pain; K21.9 Gastro-esophageal reflux disease without esophagitis; K72.90 Hepatic failure, unspecified without coma; K74.60 Unspecified cirrhosis of liver; K92.2 Gastrointestinal hemorrhage, unspecified; M54.12 Radiculopathy, cervical region; M79.7 Fibromyalgia; F41.9 Anxiety disorder, unspecified; F32.9 Major depressive disorder, single episode, unspecified; T40.1X1A Poisoning by heroin, accidental (unintentional), initial encounter; Z80.0 Family history of malignant neoplasm of digestive organs; Z80.6 Family history of leukemia; Z82.49 Family history of ischemic heart disease and other diseases of the circulatory system; Z91.19 Patient's noncompliance with other medical treatment and regimen; Z98.61 Coronary angioplasty status; X58.XXXA Exposure to other specified factors, initial encounter; Y92.89 Other specified places as the place of occurrence of the external cause; Y93.89 Activity, other specified
CPT/HCPCS: 36415; 71100; 71275; 74022; 80048; 80053; 80061; 80076; 80307; 81001; 82140; 82553; 83605; 83690; 83735; 83880; 84443; 84484; 85025; 85379; 85610; 85651; 85730; 87040; 93005; 93306; 93970; 94640; 94760; 96365; 96372; 96375; 96376; G0238; G0378; G0379; G0480; J2060; J2270; J2405; J7120; J7620; Q0162; Q9967; 99284-25; J7030

== ENCOUNTER → 2020-01-25 | Outpatient (CLI) | payer OTHER ==
[~2020-01-25] MED LIST changes: +GABA-585 PO; +PREG100C PO; +PREG50CA PO
--- NOTE | 2020-01-25 16:09 | RAD ---
Thyroid ultrasound 01/25/2020 CLINICAL HISTORY: The patient reports a tennis ball sized lump in the neck. TECHNIQUE: A real-time ultrasound examination of the thyroid gland along with the right neck in the area where the patient feels a palpable abnormality was performed. Multiple images were obtained. FINDINGS: The thyroid gland is within normal limits in size. The right lobe of thyroid gland measures 4.6 x 1.9 x 1.8 cm in longitudinal, transverse, and AP dimensions. The left lobe of thyroid gland measures 4.0 x 1.7 x 1.6 cm in size. A 3 mm anechoic structure is seen within the mid aspect of the right lobe of thyroid gland consistent with a colloid cyst. The thyroid gland is otherwise within normal limits. A prominent reactive lymph node is seen within the right neck which measures 2.4 cm in greatest diameter. It appears to correspond to the area where the patient feels a palpable abnormality. No abnormal soft tissue mass is seen. IMPRESSION: 1. Essentially normal ultrasound of the thyroid gland. 2. The patient's palpable abnormality within the right neck appears to represent a prominent reactive lymph node. Electronically signed by: Yung Rubio MD (01/25/2020 4:06 PM) [place] [id number]
== END | disposition home or self-care (01) ==
LOC: US 15:29
PROVIDERS: ATTEND Family Medicine
DX: R22.1 Localized swelling, mass and lump, neck (principal)
CPT/HCPCS: 76536

== ENCOUNTER 2020-09-02 01:00 | Emergency (ER) | payer OTHER ==
[~2020-09-02] VITALS: Ht 190.5 cm; Wt 120.0 kg
[~2020-09-02 01:00] MED LIST changes: +AMLO-186 PO; -AMLO5TAB10 PO
[2020-09-02 01:05] VITALS: BP 156/85
--- NOTE | 2020-09-02 01:49 | PHYS DOC ---
Past History Past Medical History: Alcoholism, Anxiety, Arthritis, CAD, COPD, Depression, Fibromyalgia, GERD, High Cholesterol, Hypertension, Liver Disease, [place], Other Past Surgical History: Cholecystectomy Alcohol Use: Heavy Drug Use: Heroin General Adult EDM: Chief Complaint: TOE PROBLEM HPI: HPI: 59-year-old male presents with a left great toe ulcer. The patient has a hole in the plantar side of his left great toe. He has had multiple layers of thick skin peeled off and now there is an open wound. He is concerned about infection. The patient soaked in bleach water 3 days ago and it has not gotten better. Patient has a history of multiple medical problems, see chart for more details. He denies fever or chills. He basically came in tonight to see if he needs an antibiotic or some other kind of treatment. Review of Systems: Review of Systems: Constitutional: Denies fever or chills Eyes: Denies change in visual acuity HENT: Denies nasal congestion or sore throat Respiratory: Denies cough or shortness of breath Cardiovascular: Denies chest pain or edema GI: Denies abdominal pain, nausea, vomiting, bloody stools or diarrhea : Denies dysuria Musculoskeletal: Denies back pain or joint pain Integument: Ulcer left great toe Neurologic: Denies headache, focal weakness or sensory changes Endocrine: Denies polyuria or polydipsia Lymphatic: Denies swollen glands Psychiatric: Denies depression or anxiety Allergies: Allergies: Allergies Coded Allergies Type Severity Reaction Last Updated Verified No Known Allergies Allergy Unknown 09/02/20 Yes Physical Exam: PE: Constitutional: Well developed, well nourished, no acute distress, non-toxic a ppearance. [] HENT: Normocephalic, atraumatic, bilateral external ears normal, oropharynx moist, no oral exudates, nose normal. [] Eyes: PERRLA, EOMI, conjunctiva normal, no discharge. [] Neck: Normal range of motion, no tenderness, supple, no stridor. [] Cardiovascular:Heart rate regular rhythm, no murmur [] Lungs & Thorax: Bilateral breath sounds clear to auscultation [] Abdomen: Bowel sounds normal, soft, no tenderness, no masses, no pulsatile masses. [] Skin: 3 mm ulcer of the left great toe plantar side with surrounding crusting skin. Skin inside the ulcer is pink. No current bleeding. Surrounding area is not warm to the touch[] Back: No tenderness, no CVA tenderness. [] Extremities: No tenderness, no cyanosis, no clubbing, ROM intact, no edema. [] Neurologic: Alert and oriented X 3, normal motor function, normal sensory function, no focal deficits noted. [] Psychologic: Affect normal, judgement normal, mood normal. [] EKG: EKG: [] Radiology/Procedures: Radiology/Procedures: [] Heart Score: Risk Factors: Risk Factors: DM, Current or recent (<one month) smoker, HTN, HLP, family history of CAD, obesity. Risk Scores: Score 0 - 3: 2.5% MACE over next 6 weeks - Discharge Home Score 4 - 6: 20.3% MACE over next 6 weeks - Admit for Clinical Observation Score 7 - 10: 72.7% MACE over next 6 weeks - Early Invasive Strategies Course & Med Decision Making: Course & Med Decision Making Pertinent Labs and Imaging studies reviewed. (See chart for details) The patient appears to have an ulcer on his toe. It does not appear infected at this time. I do not think antibiotics are indicated. I suggested the patient make an appoint with podiatry for wound care management. He is in verbal agreement. He is stable for discharge at this time. [] Dragon Disclaimer: Eddie Disclaimer: This electronic medical record was generated, in whole or in part, using a voice recognition dictation system. Departure Departure: Impression: Primary Impression: Skin ulcer of left great toe Qualified Codes: L97.522 - Non-pressure chronic ulcer of other part of left foot with fat layer exposed Disposition: 01 DC HOME SELF CARE/HOMELESS Condition: STABLE Referrals: CLARA RAWLS MD (PCP) Patient Instructions: Skin Ulcer Additional Instructions: Please make an appointment with a remarketing manager for further management of your toe ulcer. TAMMY KASPER DO Sep 02, 2020 01:49
== END 2020-09-02 02:10 | disposition home or self-care (01) ==
LOC: ER 01:00
DX: L97.522 Non-pressure chronic ulcer of other part of left foot with fat layer exposed (principal); F10.20 Alcohol dependence, uncomplicated; F41.9 Anxiety disorder, unspecified; M19.90 Unspecified osteoarthritis, unspecified site; I25.10 Atherosclerotic heart disease of native coronary artery without angina pectoris; J44.9 Chronic obstructive pulmonary disease, unspecified; F32.9 Major depressive disorder, single episode, unspecified; M79.7 Fibromyalgia; K21.9 Gastro-esophageal reflux disease without esophagitis; E78.00 Pure hypercholesterolemia, unspecified; I10 Essential (primary) hypertension; I25.2 Old myocardial infarction; Y90.9 Presence of alcohol in blood, level not specified
CPT/HCPCS: 99284

== ENCOUNTER 2020-09-13 21:46 | Emergency (ER) | payer OTHER ==
[~2020-09-13] VITALS: Ht 190.5 cm; Wt 120.0 kg
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
[2020-09-13 22:40] LABS: BASO % 2 % (0-3); EOS # 0.1 x10^3/uL (0.0-0.7); EOS % 2 % (0-3); HEMATOCRIT 44.1 % (39.0-53.0); HEMOGLOBIN 14.6 g/dL (13.0-17.5); LYMPH # 1.1 x10^3/uL (1.0-4.8); LYMPH % 34 % (24-48); MEAN CORPUSCULAR HEMOGLOBIN 32 pg (25-35); MEAN CORPUSCULAR HGB CONC 33 g/dL (31-37); MEAN CORPUSCULAR VOLUME 96 fL (79-100); MONO # 0.3 x10^3/uL (0.0-1.1); MONO % 11 % (0-9); NEUT # 1.7 x10^3uL (1.8-7.7); NEUT % 52 % (31-73); PLATELET COUNT 50 x10^3/uL (140-400); RED BLOOD COUNT 4.59 x10^6/uL (4.30-5.70); RED CELL DISTRIBUTION WIDTH 17.6 % (11.5-14.5); WHITE BLOOD COUNT 3.2 x10^3/uL (4.0-11.0)
[2020-09-13] MEDS ORDERED: IV NORMAL SALINE 500ML 500 ML IV ONE (22:45)
[2020-09-13 22:50] LABS: CALCIUM 8.6 mg/dL (8.5-10.1); CREATININE 0.7 mg/dL (0.7-1.3); GFR 116.2; POTASSIUM 3.4 mmol/L (3.5-5.1)
[2020-09-13 22:56] LABS: ALBUMIN/GLOBULIN RATIO 0.5 (1.0-1.7); TOTAL BILIRUBIN 1.9 mg/dL (0.2-1.0); TOTAL PROTEIN 8.7 g/dL (6.4-8.2)
[2020-09-13 23:28] LABS: BILIRUBIN,URINE NEG (NEG); CLARITY,URINE CLEAR; COLOR,URINE YELLOW; GLUCOSE,URINE NEG (NEG)
[2020-09-13 23:29] LABS: BACTERIA,URINE FEW /HPF (0-FEW); NITRITE,URINE NEG (NEG); SQUAMOUS EPITHELIAL CELL,UR OCC /LPF; UROBILINOGEN,URINE 0.2 mg/dL (0.2 mg/dL); WBC,URINE 0 /HPF (0-4)
[2020-09-13 23:31] LABS: BARBITURATES NEG (NEG); BENZODIAZEPINES NEG (NEG); CANNABINOIDS NEG (NEG); COCAINE POS (NEG); METHADONE NEG (NEG); OPIATES NEG (NEG); PHENCYCLIDINE NEG (NEG)
[2020-09-13 23:33] LABS: AMPHETAMINE/METHAMPHETAMINE POS (NEG)
[2020-09-13] MEDS ORDERED: IOHEXOL 300 MG/ML 75 ML VIAL. IV ONE (23:55)
[2020-09-13] MEDS ORDERED: CONTRAST GIVEN. MC PRN (23:55)
[2020-09-14 00:14] VITALS: BP 160/93
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
== END 2020-09-14 01:40 | disposition home or self-care (01) ==
LOC: ER 21:46
DX: S30.1XXA Contusion of abdominal wall, initial encounter (principal); M19.90 Unspecified osteoarthritis, unspecified site; J44.9 Chronic obstructive pulmonary disease, unspecified; I25.10 Atherosclerotic heart disease of native coronary artery without angina pectoris; M79.7 Fibromyalgia; K21.9 Gastro-esophageal reflux disease without esophagitis; E78.00 Pure hypercholesterolemia, unspecified; I10 Essential (primary) hypertension; I25.2 Old myocardial infarction; F10.20 Alcohol dependence, uncomplicated; Y90.6 Blood alcohol level of 120-199 mg/100 ml; W51.XXXA Accidental striking against or bumped into by another person, initial encounter; Y93.89 Activity, other specified; Y92.89 Other specified places as the place of occurrence of the external cause; Y99.8 Other external cause status
CPT/HCPCS: 36415; 74177; 80053; 80307; 81001; 83690; 84484; 85025; 85610; 96361; 96374; 99285; G0480; J3010; J7040; Q9967

== ENCOUNTER 2020-10-12 03:22 | Emergency (ER) | payer OTHER ==
[~2020-10-12] VITALS: Ht 190.5 cm; Wt 120.0 kg
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
[2020-10-12] MEDS ORDERED: ONDANSETRON PF 4 MG/2 ML VIAL. IVP ONE (04:30)
[2020-10-12] MEDS ORDERED: FAMOTIDINE 20 MG/2 ML VIAL IVP ONE (04:30)
[2020-10-12] MEDS ORDERED: IV RINGERS SOLUTION,LACTATED 1,000 ML IV SCH (04:30)
[2020-10-12 04:56] LABS: BASO % 1 % (0-3); EOS # 0.1 x10^3/uL (0.0-0.7); EOS % 1 % (0-3); HEMATOCRIT 43.5 % (39.0-53.0); HEMOGLOBIN 14.3 g/dL (13.0-17.5); LYMPH # 1.9 x10^3/uL (1.0-4.8); LYMPH % 39 % (24-48); MEAN CORPUSCULAR HEMOGLOBIN 33 pg (25-35); MEAN CORPUSCULAR HGB CONC 33 g/dL (31-37); MEAN CORPUSCULAR VOLUME 99 fL (79-100); MONO # 0.5 x10^3/uL (0.0-1.1); MONO % 10 % (0-9); NEUT # 2.3 x10^3uL (1.8-7.7); NEUT % 49 % (31-73); PLATELET COUNT 59 x10^3/uL (140-400); RED BLOOD COUNT 4.41 x10^6/uL (4.30-5.70); RED CELL DISTRIBUTION WIDTH 17.6 % (11.5-14.5); WHITE BLOOD COUNT 4.8 x10^3/uL (4.0-11.0)
--- NOTE | 2020-10-12 04:59 | EKG ---
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
[2020-10-12 05:05] LABS: CREATININE 0.6 mg/dL (0.7-1.3); GFR 138.4; POTASSIUM 3.7 mmol/L (3.5-5.1)
[2020-10-12 05:16] LABS: ALBUMIN 2.7 g/dL (3.4-5.0); BARBITURATES NEG (NEG); BENZODIAZEPINES NEG (NEG); CANNABINOIDS NEG (NEG); COCAINE POS (NEG); DIRECT BILIRUBIN 0.7 mg/dL (0.0-0.2); METHADONE NEG (NEG); OPIATES NEG (NEG); PHENCYCLIDINE NEG (NEG); TOTAL PROTEIN 8.4 g/dL (6.4-8.2)
[2020-10-12 05:19] LABS: AMPHETAMINE/METHAMPHETAMINE NEG (NEG)
[2020-10-12 05:35] LABS: BILIRUBIN,URINE NEG (NEG); CLARITY,URINE CLEAR; COLOR,URINE YELLOW; GLUCOSE,URINE NEG (NEG); NITRITE,URINE NEG (NEG); UROBILINOGEN,URINE 0.2 mg/dL (0.2 mg/dL)
[2020-10-12 05:36] LABS: BACTERIA,URINE 0 /HPF (0-FEW); RBC,URINE 0 /HPF (0-2); SQUAMOUS EPITHELIAL CELL,UR FEW /LPF; WBC,URINE 0 /HPF (0-4)
[2020-10-12] MEDS ORDERED: IOHEXOL 350 MG/ML 100 ML VIAL. IV ONE (07:00)
[2020-10-12] MEDS ORDERED: CONTRAST GIVEN. MC PRN (07:00)
--- NOTE | 2020-10-12 08:04 | RAD ---
Examination: CT angiography chest and CT abdomen with IV contrast HISTORY: History of fall, left chest wall injury, liver disease COMPARISON: CT abdomen from 09/13/[address] angiography chest from 01/16/2019 TECHNIQUE: Axial CT angiographic images of the chest with IV contrast. Coronal and sagittal 3-D MIP r eformats are performed. Axial CT images of the abdomen was performed with IV contrast. Coronal and sa gittal reformats are performed Exposure: One or more of the following individualized dose reduction techniques were utilized for thi s examination: 1. Automated exposure control 2. Adjustment of the mA and/or kV according to patient size 3. Use of iterative reconstruction technique FINDINGS: The central airways are patent. The caliber of the aorta grossly appears unremarkable. There is no ev idence of filling defect identified in the main pulmonary arterial trunk and right and left main pulm onary arteries and the visualized lobar, segmental branch of the pulmonary arteries. 3 mm nodule iden tified in the right middle lobe of the lung, unchanged.Mild bibasilar lung atelectasis. Cirrhotic appearance of the liver. Mild pneumobilia. Cholecystectomy changes are identified. Mild enl arged splenomegaly. There is mild fat stranding identified about the pancreas and the second part of the duodenum. The stomach is mildly distended. The small bowel is nondilated. The visualized colon de monstrates feces and gas within. Bilateral kidneys enhance symmetrically. 1 cm cystic structure ident ified in the right kidney likely a cyst is unchanged. No evidence of displaced rib fracture identifie d. Moderate degenerative changes thoracic and lumbar spine. IMPRESSION: 1. No evidence of pulmonary embolism. 2. Hepatic cirrhosis with splenomegaly. There is questionable mild fat stranding identified about the pancreas and the duodenal region could be mild pancreatitis or duodenitis. Correlate with lab values . 3. Cholecystectomy changes. Electronically signed by: Ovidio Greco MD (10/12/2020 8:01 AM) [id number]
--- NOTE | 2020-10-12 08:12 | RAD ---
ACUTE ABDOMEN SERIES Indication: Chest pain and abdominal pain Date of service:10/12/2020 .Comparison: None available Procedure: PA chest and upright and supine abdomen views are obtained. Findings: Chest: Cardiac size and pulmonary vessels are normal. Pneumonia, pneumothorax or pleural effusion ar e not present. Bones are normal Abdomen: No evidence of free air is present. Gas pattern is normal . Cholecystectomy. No abnormal [place] cification Impression: Normal Chest . Normal abdomen without obstruction, ileus or free air . If indicated, CT scan of the abdomen would be useful for further evaluation. Electronically signed by: Toma Trammell MD (10/12/2020 8:10 AM) [id number]
[2020-10-12 08:18] VITALS: BP 121/68
== END 2020-10-12 08:54 | disposition home or self-care (01) ==
LOC: ER 03:22
DX: F10.229 Alcohol dependence with intoxication, unspecified (principal); F19.10 Other psychoactive substance abuse, uncomplicated; G89.29 Other chronic pain; D69.6 Thrombocytopenia, unspecified; R79.1 Abnormal coagulation profile; R07.89 Other chest pain; R10.11 Right upper quadrant pain; M54.5 Low back pain; F41.9 Anxiety disorder, unspecified; I25.10 Atherosclerotic heart disease of native coronary artery without angina pectoris; J44.9 Chronic obstructive pulmonary disease, unspecified; F32.9 Major depressive disorder, single episode, unspecified; M79.7 Fibromyalgia; K21.9 Gastro-esophageal reflux disease without esophagitis; E78.00 Pure hypercholesterolemia, unspecified; I10 Essential (primary) hypertension; I25.2 Old myocardial infarction; Z87.820 Personal history of traumatic brain injury; Y90.8 Blood alcohol level of 240 mg/100 ml or more; W18.39XA Other fall on same level, initial encounter; Y93.89 Activity, other specified; Y92.89 Other specified places as the place of occurrence of the external cause; Y99.8 Other external cause status
CPT/HCPCS: 36415; 71275; 74022; 74175; 80048; 80076; 80307; 81001; 82140; 82150; 82550; 83690; 83735; 83880; 84443; 84484; 85025; 85379; 85610; 85730; 93005; 96361; 96374; 96375; 99285; G0480; J2405; J3490; J7120; Q9967

== ENCOUNTER 2020-12-09 18:40 | Inpatient (IN) | payer OTHER ==
[~2020-12-09] VITALS: Ht 190.5 cm; Wt 112.4 kg
[~2020-12-09 18:40] MED LIST changes: -LACT10SO PO; +LACT10SO2 PO
[2020-12-09] MEDS ORDERED: ONDANSETRON PF 4 MG/2 ML VIAL. IVP ONE (19:00)
[2020-12-09] MEDS ORDERED: IV NORMAL SALINE 1,000ML 1,000 ML IV ONE ×2 (19:00→20:00)
--- NOTE | 2020-12-09 19:05 | PHYS DOC ---
Past History Past Medical History: Alcoholism, Anxiety, Arthritis, CAD, Cancer, COPD, Depression, Fibromyalgia, GERD, High Cholesterol, Hypertension, Hepatitis, Liver Disease, [place], Pancreatitis, Other Additional Past Medical Histor: Traumatic brain injury-2yrs ago; stage 4 liver cancer; elev ammonia levels Past Surgical History: Cholecystectomy, Other Additional Past Surgical Histo: steel plate in lt eye socket, lower jaw and bijal lower legs Alcohol Use: Heavy Drug Use: Heroin Social History Narrative: PAIN PILLS General Adult EDM: Chief Complaint: WITHDRAWAL HPI: HPI: Patient is a 60-year-old male coming in for alcohol withdrawal. Patient states he tried to quit drinking cold turkey 2 days ago. Was drinking 12 large sized beers per day. Still using heroin, last heroin use today. Patient states he has been seeing spots in his visual field and shaking. Has had multiple episodes of vomiting that he says is green. Last bowel movement 2 or 3 days ago. Denies any hematemesis or blood in his stools. Patient states his stomach hurts from the vomiting but has no distention or focal tenderness. Denies any fevers, headaches, cough, chest pain. Review of Systems: Review of Systems: All other systems within normal limits except for as noted in the HPI Allergies: Allergies: Allergies Coded Allergies Type Severity Reaction Last Updated Verified No Known Allergies Allergy Unknown 12/09/20 Yes Physical Exam: PE: Constitutional: Well developed, well nourished, tremulous, moderate acute distress. [] HENT: Normocephalic, atraumatic, bilateral external ears normal, nose normal. [] Eyes: PERRLA, conjunctiva normal, no discharge. [] Neck: No rigidity, supple, no stridor. [] Cardiovascular: Regular rate and rhythm, brisk cap refill [] Lungs & Thorax: Non labored symmetric respirations, no tachypnea or respiratory distress [] Abdomen: Soft, mildly distended, no focal tenderness Skin: Warm, dry, no erythema, no rash. [] Back: Unremarkable Extremities: No deformities, range of motion grossly intact, no lower extremity edema [] Neurologic: Alert and oriented X 3, no focal deficits noted. [], Symmetric upper and lower extremity tremors. Psychologic: Affect normal, judgement normal, mood normal. [] Current Patient Data: Vital Signs: Vital Signs Date Time Temp Pulse Resp B/P (MAP) Pulse Ox O2 Delivery O2 Flow Rate FiO2 12/09/20 18:45 98.3 114 18 197/92 (127) 97 EKG: EKG: Sinus rhythm, rate 96 bpm, left axis deviation, no ST elevation or depression, normal intervals, no ectopy. [] Radiology/Procedures: Radiology/Procedures: [] Heart Score: Risk Factors: Risk Factors: DM, Current or recent (<one month) smoker, HTN, HLP, family history of CAD, obesity. Risk Scores: Score 0 - 3: 2.5% MACE over next 6 weeks - Discharge Home Score 4 - 6: 20.3% MACE over next 6 weeks - Admit for Clinical Observation Score 7 - 10: 72.7% MACE over next 6 weeks - Early Invasive Strategies Course & Med Decision Making: Course & Med Decision Making Vomiting and tremors resolved with Ativan. Elevated lactate of 5.7. Will admit for [place] protocol for alcohol withdrawal. [] Dragon Disclaimer: Dragon Disclaimer: This electronic medical record was generated, in whole or in part, using a voice recognition dictation system. Departure Departure: Impression: Primary Impression: Alcohol withdrawal Additional Impression: Impending delirium tremens Disposition: ADMITTED INPT THIS HOSP Admitting Physician: Stephen Oneil Condition: GUARDED Referrals: CLARA RAWLS MD (PCP) RAVEN ZENG MD Dec 09, 2020 19:05
[2020-12-09 19:22] LABS: BASO % 1 % (0-3); EOS % 1 % (0-3); HEMATOCRIT 43.5 % (39.0-53.0); HEMOGLOBIN 14.6 g/dL (13.0-17.5); LYMPH # 0.9 x10^3/uL (1.0-4.8); LYMPH % 29 % (24-48); MEAN CORPUSCULAR HEMOGLOBIN 33 pg (25-35); MEAN CORPUSCULAR HGB CONC 34 g/dL (31-37); MEAN CORPUSCULAR VOLUME 99 fL (79-100); MONO # 0.3 x10^3/uL (0.0-1.1); MONO % 10 % (0-9); NEUT # 1.8 x10^3uL (1.8-7.7); NEUT % 60 % (31-73); RED BLOOD COUNT 4.38 x10^6/uL (4.30-5.70); RED CELL DISTRIBUTION WIDTH 15.1 % (11.5-14.5); WHITE BLOOD COUNT 2.9 x10^3/uL (4.0-11.0)
[2020-12-09 19:31] LABS: CALCIUM 8.4 mg/dL (8.5-10.1); CREATININE 0.7 mg/dL (0.7-1.3); GFR 115.8; POTASSIUM 3.6 mmol/L (3.5-5.1)
[2020-12-09 19:45] LABS: ALBUMIN/GLOBULIN RATIO 0.5 (1.0-1.7); MAGNESIUM 1.5 mg/dL (1.8-2.4); TOTAL BILIRUBIN 3.2 mg/dL (0.2-1.0); TOTAL PROTEIN 8.8 g/dL (6.4-8.2)
[2020-12-09 20:33] LABS: PLATELET COUNT 36 x10^3/uL (140-400); PLT ESTIMATE DECREASED (ADEQUATE)
[2020-12-09] MEDS ORDERED: ONDANSETRON PF 4 MG/2 ML VIAL. IVP PRN (21:00)
[2020-12-09] MEDS ORDERED: MORPHINE SULFATE 2 MG/ML DISP.SYRIN. IVP PRN (21:00)
[2020-12-09] MEDS ORDERED: diphenhydrAMINE HCL 25 MG CAPSULE PO ONE (22:00)
[2020-12-09 22:50] VITALS: BP 156/96
[2020-12-09 23:00] LABS: BARBITURATES NEG (NEG); BENZODIAZEPINES NEG (NEG); CANNABINOIDS NEG (NEG); COCAINE NEG (NEG); METHADONE NEG (NEG); OPIATES POS (NEG); PHENCYCLIDINE NEG (NEG)
[2020-12-09] MEDS: IV NORMAL SALINE 1,000ML 1,000 ML IV SCH (23:01)
[2020-12-09 23:12] LABS: AMPHETAMINE/METHAMPHETAMINE NEG (NEG)
[2020-12-09 23:18] LABS: CLARITY,URINE CLEAR; COLOR,URINE YELLOW; GLUCOSE,URINE NEG (NEG)
[2020-12-09 23:21] LABS: BILIRUBIN,URINE SMALL (NEG); NITRITE,URINE NEG (NEG); UROBILINOGEN,URINE >=8.0 mg/dL (0.2 mg/dL)
[2020-12-09 23:22] LABS: BACTERIA,URINE 0 /HPF (0-FEW); SQUAMOUS EPITHELIAL CELL,UR OCC /LPF; WBC,URINE OCC /HPF (0-4)
--- NOTE | 2020-12-10 02:07 | EKG ---
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
[2020-12-10 03:13] VITALS: BP 156/101
[2020-12-10 07:00] VITALS: BP 166/102
[2020-12-10 08:11] LABS: ALBUMIN 2.4 g/dL (3.4-5.0); ALBUMIN/GLOBULIN RATIO 0.5 (1.0-1.7); CALCIUM 8.1 mg/dL (8.5-10.1); CREATININE 0.6 mg/dL (0.7-1.3); GFR 138.4; POTASSIUM 3.5 mmol/L (3.5-5.1); TOTAL BILIRUBIN 2.5 mg/dL (0.2-1.0); TOTAL PROTEIN 7.3 g/dL (6.4-8.2)
[2020-12-10 11:00] VITALS: BP 146/101
[2020-12-10] MEDS ORDERED: MAGNESIUM SULFATE 1GM 100 ML IV ONE (11:15)
--- NOTE | 2020-12-10 11:15 | HP ---
ADMIT DATE: 12/10/2020 ATTENDING PHYSICIAN: Dr. Giles. CHIEF COMPLAINT: Alcohol withdrawal. HISTORY OF PRESENT ILLNESS: The patient is a 60-year-old gentleman, chronic alcoholic. He has multiple previous episodes of withdrawal and continued tobacco use. There was a traumatic brain injury 2 years ago. He also has stage 4 liver cancer, where we are regarding his disease remains to be seen. He tried to quit drinking cold turkey 2 days prior to coming in, he was drinking heavily. He still is using heroin, last heroin use today. He has been seeing spots. Last bowel movement was a couple days ago. No hematemesis. He is having active symptoms of withdrawal. He is admitted then to the ICU with acute alcohol withdrawal and chronic alcoholism. PAST MEDICAL HISTORY: Gleaned from the chart. He is a bit confused. He has stage 4 liver cancer, COPD, depression, polysubstance abuse, chronic alcoholism, degenerative arthritis, hyperlipidemia, hypertension, noncompliance, pancreatitis, previous NV and generalized debilitation. Supposedly, a traumatic brain injury 2 years ago. He has had hepatic encephalopathy and supposed it stage 4 liver cancer, I do not know the exact details. CURRENT MEDICATIONS: Reviewed. He was not compliant in taking anything. FAMILY HISTORY: Unobtainable due to the patient's condition. SOCIAL HISTORY: Alcohol and heroin use as noted. REVIEW OF SYSTEMS: Significant for the withdrawal symptoms. There are no fevers, witnessed seizures, hematemesis. All other systems reviewed and determined to be negative. PHYSICAL EXAMINATION: GENERAL: When I saw him, this is a pleasant, but confused gentleman. He responded to some questions, but was very sketchy on the details. INITIAL VITAL SIGNS: Showed a blood pressure of 156/96, pulse is 93 and regular. He was afebrile, temperature 98.8 degrees Fahrenheit. Room air saturation 97%. HEENT: Head is without trauma. Pupils are reactive. Sclerae are slightly icteric. Oropharynx is clear. NECK: Supple, no bruits identified. LUNGS: Shallow respirations. CARDIOVASCULAR: Showed regular heart tones. No gallops, no murmurs. Peripheral pulses are palpable and full. ABDOMEN: Soft, no guarding or rebound tenderness. There are no masses palpated. EXTREMITIES: Showed trace edema. NEUROLOGIC FUNCTION: Pleasantly confused. SKIN: Otherwise warm and dry. He requires 2:1 to help transfer, very unsteady on his feet. PERTINENT LABORATORY STUDIES: Hemoglobin 14.6 g/dL with white count of 2900. His electrolytes were within range. Potassium is 3.5 mEq. Total bilirubin is 3.2, AST 136, alkaline phosphatase 151. Cardiac enzymes negative for coronary ischemia. ASSESSMENT: 1. A 60-year-old gentleman with chronic alcoholism and alcoholic withdrawal symptoms. 2. Impending delirium tremens. 3. End-stage liver disease, question stage 4 liver cancer, I do not have the biopsy reports. 4. Traumatic brain injury. 5. Confusion related to medical issues. 6. Essential hypertension. 7. Heroin abuse. 8. Chronic obstructive pulmonary disease. 9. Noncompliance of meds. PLAN: 1. Admit to the ICU. 2. We should determine the code status. He remains a full code at this time. 3. CIWA protocol. 4. Potassium and magnesium replacement. 5. Social service to help with discharge planning. ARVIN GILES MD DR: BENITO/francis JOB#: [id number] / [id number] Marisol Morales
[2020-12-10] MEDS: HALOPERIDOL LACT 5 MG/ML VIAL. IVP PRN ×2 (11:42→19:13)
[2020-12-10] MEDS: IV NORMAL SALINE 1,000ML 1,000 ML IV SCH (17:00)
[2020-12-10 18:48] VITALS: BP 152/98
[2020-12-11 05:49] VITALS: BP 116/71
[2020-12-11 08:09] LABS: CALCIUM 8.5 mg/dL (8.5-10.1); CREATININE 0.8 mg/dL (0.7-1.3); GFR 99.3; POTASSIUM 3.3 mmol/L (3.5-5.1)
[2020-12-11 08:10] LABS: HEMATOCRIT 40.3 % (39.0-53.0); HEMOGLOBIN 13.3 g/dL (13.0-17.5); RED BLOOD COUNT 3.98 x10^6/uL (4.30-5.70)
[2020-12-11 08:19] LABS: MAGNESIUM 1.8 mg/dL (1.8-2.4)
[2020-12-11] MEDS: oxyCODONE/APAP 5/325 1 TAB TABLET PO PRN ×3 (09:32→23:55)
[2020-12-11] MEDS: HALOPERIDOL LACT 5 MG/ML VIAL. IVP PRN (10:16)
[2020-12-11 11:00] VITALS: BP 142/54
[2020-12-11] MEDS ORDERED: chlordiazePOXIDE HCL 25 MG CAPSULE PO PRN ×2 (13:45)
--- NOTE | 2020-12-11 14:28 | PN ---
DATE: 12/11/2020 SUBJECTIVE: The patient was admitted yesterday with alcohol withdrawal. He is chronic alcoholic and apparently has multiple previous episodes of withdrawal and continues tobacco use. He has also traumatic brain injury about 2 years ago. He also had stage 4 liver cancer. He apparently attempted to quit drinking, cold turkey 2 days ago prior to coming and he was drinking heavily. He still is using heroin and last heroin the day he was admitted. He has being seeing spots, but denied any hematemesis, melena or hematochezia and was admitted with acute alcohol withdrawal and chronic alcoholism, apparently he has been very agitated and wanting to go home; however, the nursing staff were concerned that the patient is extremely unsteady on his feet. PHYSICAL EXAMINATION: GENERAL: When I examined him this afternoon, he was resting slightly propped up in bed, in no apparent respiratory distress. No pallor, jaundice, cyanosis or thyromegaly. No jugular venous distention noted. Mild bilateral lower limb edema. VITAL SIGNS: His heart rate was 84, blood pressure was 142/54, temperature was 98.2, respiratory rate 20, and oxygen saturation was 94%. HEAD, EYES, EARS, NOSE AND THROAT: Showed normocephalic, atraumatic. NECK: Supple. HEART: Normal first and second heart sounds. No gallop, rub or murmur. CHEST: Clear to auscultation. No crepitation or rhonchi. ABDOMEN: Distended, soft, nontender. NEUROLOGIC: He is awake, alert, responding appropriately. Cranial nerves are intact. He moves extremities without difficulty, although he is extremely unsteady. He is a very high fall risk. His intake over the last 24 hours was 2300, output was 400. LABORATORY DATA: His lab work this morning showed a serum sodium 140, potassium 3.3, chloride 104, bicarbonate 28, anion gap of 8, BUN 10, creatinine 0.8, estimated GFR was 99 mL per minute. His glucose 145, calcium was 8.5, magnesium was 1.8. His ammonia was only 32. Total protein was 7.3, albumin 2.7. His white cell count was 2000, hemoglobin 13, hematocrit 40, MCV 101, and platelet count 32,000. His prothrombin time was 13.3, INR 1.3. Urinalysis was essentially unremarkable and tox screen was positive for opiates and blood alcohol level was 36 mg/dL. ASSESSMENT: 1. This is a 60-year-old male patient with chronic alcohol withdrawal syndrome. 2. End-stage liver disease, question stage 4 liver cancer. 3. Traumatic brain injury. 4. Confusion related to medical issues. 5. Essential hypertension. 6. Heroin abuse. 7. Chronic obstructive pulmonary disease. 8. Hypokalemia. PLAN: My plan is to start him on some IV fluid in the form of normal saline with potassium to replenish his potassium. I would check also his alpha fetoprotein, continue with alcohol withdrawal protocol. I added also multivitamin, folic acid and thiamine. MARGE GARCIA MD DR: SOFIA/francis JOB#: [id number] / [id number]
[2020-12-11] MEDS ORDERED: POTASSIUM CHLORIDE 20 MEQ TABLET.ER. PO ONE (14:30)
[2020-12-11] MEDS: HALOPERIDOL LACT 5 MG/ML VIAL. IM PRN ×2 (14:44→20:26)
[2020-12-11 15:00] VITALS: BP 149/95
[2020-12-11] MEDS: POTASSIUM CL 20MEQ-0.45% NACL 1,000 ML IV SCH (15:17)
[2020-12-11] MEDS ORDERED: ZIPRASIDONE IM 20 MG VIAL. IM PRN (15:30)
[2020-12-11] MEDS: diphenhydrAMINE 50 MG/ML VIAL IVP PRN (18:16)
[2020-12-11 18:53] VITALS: BP 126/84
[2020-12-12] MEDS: POTASSIUM CL 20MEQ-0.45% NACL 1,000 ML IV SCH (03:29)
[2020-12-12] MEDS: oxyCODONE/APAP 5/325 1 TAB TABLET PO PRN ×3 (03:45→12:31)
[2020-12-12] MEDS: diphenhydrAMINE 50 MG/ML VIAL IVP PRN ×2 (05:40→19:30)
[2020-12-12 05:43] VITALS: BP 140/93
[2020-12-12 06:32] LABS: CREATININE 0.7 mg/dL (0.7-1.3); GFR 115.8; POTASSIUM 3.6 mmol/L (3.5-5.1)
[2020-12-12] MEDS: MULTIVITAMIN with MINERAL TABLET. PO SCH (07:51)
[2020-12-12] MEDS: THIAMINE 100 MG TABLET. PO SCH (07:51)
[2020-12-12] MEDS: FOLIC ACID 1 MG TABLET PO SCH (07:52)
[2020-12-12 10:12] VITALS: BP 143/87
[2020-12-12] MEDS ORDERED: MAGNESIUM CITRATE 296 ML SOLUTION. PO ONE (13:45)
--- NOTE | 2020-12-12 14:30 | PN ---
DATE: 12/12/2020 SUBJECTIVE: The patient is resting, slightly propped up in bed, in no apparent respiratory distress. He is somewhat sleepy, but arousable. He is definitely less agitated or restless and more cooperative. He continued to be incontinent and requires 2-person assist for transfer. PHYSICAL EXAMINATION: GENERAL: When I examined him, he looked well and was clearly in no apparent respiratory distress. There is no pallor, jaundice, cyanosis or thyromegaly. No jugular venous distension. No limb edema. VITAL SIGNS: His heart rate was 77, blood pressure was 143/87, temperature 97.8, respiratory rate was 11 and oxygen saturation was 92% on 2 liters of oxygen. HEAD, EYES, EARS, NOSE AND THROAT: Showed normocephalic, atraumatic. NECK: Supple. HEART: Normal first and second heart sounds. No gallop or murmur. CHEST: Clear to auscultation. No crepitation or rhonchi. ABDOMEN: Distended, soft, nontender with positive shifting dullness. No guarding or rigidity. No organomegaly. All hernial orifice intact. Bowel sounds normal. NEUROLOGIC: He was somewhat sleepy, but arousable. All cranial nerves are intact. He moves extremities without difficulty. His intake was 1740, output was 1575. LABORATORY DATA: His white cell count was 2000, hemoglobin 13.3, hematocrit 40, MCV 101, and platelet count of 32,000. Serum sodium 136, potassium 3.6, chloride 103, bicarbonate 27, anion gap of 6, BUN 10, creatinine 0.7, estimated GFR was 150 mL per minute. His glucose was 11. Calcium was 8. Ammonia was 32. His alpha fetoprotein was only 7.1. His prothrombin time and INR are slightly elevated. ASSESSMENT: 1. This is a 60-year-old male patient with chronic alcoholism and alcohol withdrawal syndrome. He is less agitated and combative today. 2. End-stage liver disease. His alpha fetoprotein was only 7.1. 3. Traumatic brain injury. 4. Confusion related medical issues. 5. Essential hypertension. 6. Heroin abuse. 7. Chronic obstructive pulmonary disease. 8. Hypokalemia that has resolved. His potassium this morning went up to 3.6. PLAN: To continue with all his current medication. Apparently, he is scheduled to be discharged tomorrow to [facility] in [place]. MARGE GARCIA MD DR: SOFIA/francis JOB#: [id number] / [id number]
[2020-12-12 15:17] VITALS: BP 157/90
[2020-12-12 19:01] VITALS: BP 139/87
[2020-12-12] MEDS: HALOPERIDOL LACT 5 MG/ML VIAL. IM PRN (19:30)
[2020-12-12 22:58] VITALS: BP 158/100
[2020-12-13] MEDS: oxyCODONE/APAP 5/325 1 TAB TABLET PO PRN ×2 (04:06→12:20)
[2020-12-13 06:17] VITALS: BP 147/98
[2020-12-13] MEDS: MULTIVITAMIN with MINERAL TABLET. PO SCH (08:17)
[2020-12-13] MEDS: THIAMINE 100 MG TABLET. PO SCH (08:17)
[2020-12-13] MEDS: FOLIC ACID 1 MG TABLET PO SCH (08:17)
--- NOTE | 2020-12-13 10:03 | DISCH ---
DISCHARGE ORDERS DISCHARGE DATE: Dec 13, 2020 FINAL DIAGNOSIS alcohol withdrawal advanced alcoholic liver cirrhosis CONDITION AT DISCHARGE: Stable Code Status: Full SNF STAY <30 DAYS: Yes POST DISCHARGE ORDERS: ACTIVITY ORDERS: Activity as tolerated DISCHARGE MEDICATIONS: Home Meds Active Scripts Pregabalin (LYRICA) 100 Mg Capsule, 1 CAP PO QHS for neuropathy for 30 Days, #30 CAP 2 Refills Prov:MARGE GRACIA MD 01/17/19 Pregabalin (LYRICA) 50 Mg Capsule, 1 CAP PO BID for neuropathy for 30 Days, #60 CAP Prov:MARGE GARCIA MD 01/17/19 Reported Medications Vit #76/Iron,Carb/FA (Pnv 29-1 Tablet) 1 Each Tablet, 1 EACH PO DAILY for Iron supplementation, TAB 01/06/19 Lactulose (LACTULOSE) 10 Gm/15 Ml Solution, 30 ML PO [id number] for Liver support, #900 ML 10 Refills 01/06/19 Fluticasone Propionate (FLUTICASONE PROPIONATE NASAL SPRAY) 16 Gm Erin.susp, 2 SPR NS DAILY for Nasal polyps/allergies, #1 INHALER 11 Refills 01/06/19 Amlodipine Besylate (AMLODIPINE BESYLATE) 5 Mg Tablet, 5 MG PO DAILY for CHF/HTN 01/06/19 Propranolol Hcl (PROPRANOLOL HCL) 120 Mg Cap.sa.24h, 120 MG PO DAILY for CHF/HTN 01/06/19 MARGE GARCIA MD Dec 13, 2020 10:03
[2020-12-13 11:15] VITALS: BP 147/88
== END 2020-12-13 13:51 | DRG 640 ==
LOC: ER 18:40 → ICU 21:57
PROVIDERS: ADMIT Hospitalist; ATTEND Hospitalist
DX: E87.6 Hypokalemia (principal); G92 Toxic encephalopathy; F10.239 Alcohol dependence with withdrawal, unspecified; C22.9 Malignant neoplasm of liver, not specified as primary or secondary; E78.00 Pure hypercholesterolemia, unspecified; E78.5 Hyperlipidemia, unspecified; F11.10 Opioid abuse, uncomplicated; I10 Essential (primary) hypertension; I25.10 Atherosclerotic heart disease of native coronary artery without angina pectoris; I25.2 Old myocardial infarction; J44.9 Chronic obstructive pulmonary disease, unspecified; K72.90 Hepatic failure, unspecified without coma; M79.7 Fibromyalgia; Z85.05 Personal history of malignant neoplasm of liver; Z87.820 Personal history of traumatic brain injury; Z87.891 Personal history of nicotine dependence; Z91.14 Patient's other noncompliance with medication regimen; Z91.19 Patient's noncompliance with other medical treatment and regimen; F32.9 Major depressive disorder, single episode, unspecified; F41.9 Anxiety disorder, unspecified; K21.9 Gastro-esophageal reflux disease without esophagitis; M19.90 Unspecified osteoarthritis, unspecified site; Z20.822 Contact with and (suspected) exposure to COVID-19
CPT/HCPCS: 36415; 80048; 80053; 80307; 81001; 82105; 82140; 82550; 83605; 83690; 83735; 83874; 83880; 84484; 85025; 85027; 85610; 87426; 93005; 96361; 96374; 96375; G0480; J1200; J1630; J2060; J2405; J3475; Q0163; U0003; 97530; 99285-25; J7030

== ENCOUNTER 2021-06-09 19:05 | Inpatient (IN) | payer OTHER ==
[~2021-06-09] VITALS: Ht 190.5 cm; Wt 104.7 kg
[2021-06-09] MEDS ORDERED: IV NORMAL SALINE 1,000ML 1,000 ML IV ONE (20:00)
--- NOTE | 2021-06-09 20:02 | PHYS DOC ---
Past History Past Medical History: Alcoholism, Anxiety, Arthritis, CAD, Cancer, COPD, Depression, Fibromyalgia, GERD, High Cholesterol, Hypertension, Hepatitis, Liver Disease, DE, Pancreatitis, Other Additional Past Medical Histor: Traumatic brain injury-2yrs ago; stage 4 liver cancer; elev ammonia levels (PRICE MARTINEZ APRN) Past Surgical History: Cholecystectomy, Other Additional Past Surgical Histo: steel plate in lt eye socket, lower jaw and bijal lower legs (PRICE MARTINEZ APRN) Alcohol Use: Heavy Drug Use: Heroin (PRICE MARTINEZ APRN) General Adult EDM: Chief Complaint: ABSCESS HPI: HPI: Patient is a 60-year-old male who presents to the ER for an abscess to his right upper leg and swelling to his right groin that started 5 days ago. He reports that the abscess is opened up and is now draining bloody and purulent liquid. Patient denies nausea, vomiting, fevers, history of abscesses, treatment today. Patient has been taking 15 mg of morphine for the last 3 days. (PRICE MARTINEZ APRN) Review of Systems: Review of Systems: 14 body systems of the review of systems have been reviewed. See HPI for pertinent positive and negative responses, otherwise all other systems are negative, nonpertinent or noncontributory (PRICE MARTINEZ APRN) Allergies: Allergies: Allergies Coded Allergies Type Severity Reaction Last Updated Verified No Known Allergies Allergy Unknown 12/09/20 Yes (PRICE MARTINEZ APRN) Physical Exam: PE: Constitutional: Well developed, well nourished, no acute distress, non-toxic appearance. [] HENT: Normocephalic, atraumatic, bilateral external ears normal, oropharynx moist, no oral exudates, nose normal. [] Eyes: PERRL, EOMI, conjunctiva normal, no discharge. [] Neck: Normal range of motion, no tenderness, supple, no stridor. [] Cardiovascular:Heart rate regular rhythm, no murmur [] Lungs & Thorax: Bilateral breath sounds clear to auscultation [] Abdomen: Bowel sounds normal, soft, no tenderness, no pulsatile masses, swelling noted to right groin, no palpable hard mass Skin: Warm, dry, wound noted to right upper leg that is draining serosanguineous fluid with surrounding redness, warmth, swelling Back: Normal range of motion Extremities: No tenderness, no cyanosis, no clubbing, ROM intact, no edema. [] Neurologic: Alert and oriented X 3, normal motor function, normal sensory function, no focal deficits noted. [] Psychologic: Affect normal, judgement normal, mood normal. [] (PRICE MARTINEZ APRN) Current Patient Data: Labs: Laboratory Tests Test 06/09/21 19:45 White Blood Count 8.5 x10^3/uL Red Blood Count 4.26 x10^6/uL Hemoglobin 14.3 g/dL Hematocrit 41.6 % Mean Corpuscular Volume 98 fL Mean Corpuscular Hemoglobin 34 pg Mean Corpuscular Hemoglobin Concent 34 g/dL Red Cell Distribution Width 15.9 % Platelet Count 85 x10^3/uL Neutrophils (%) (Auto) 63 % Lymphocytes (%) (Auto) 24 % Monocytes (%) (Auto) 12 % Eosinophils (%) (Auto) 1 % Basophils (%) (Auto) 1 % Neutrophils # (Auto) 5.3 x10^3uL Lymphocytes # (Auto) 2.0 x10^3/uL Monocytes # (Auto) 1.0 x10^3/uL Eosinophils # (Auto) 0.1 x10^3/uL Basophils # (Auto) 0.1 x10^3/uL Platelet Estimate Pending Sodium Level 132 mmol/L Potassium Level 4.7 mmol/L Chloride Level 96 mmol/L Carbon Dioxide Level 27 mmol/L Anion Gap 9 Blood Urea Nitrogen 7 mg/dL Creatinine 0.3 mg/dL Estimated GFR (Cockcroft-Gault) > 300.0 BUN/Creatinine Ratio 23 Glucose Level 91 mg/dL Lactic Acid Level 2.3 mmol/L Calcium Level 7.7 mg/dL Total Bilirubin 2.7 mg/dL Aspartate Amino Transf (AST/SGOT) 115 U/L Alanine Aminotransferase (ALT/SGPT) 40 U/L Alkaline Phosphatase 169 U/L Total Protein 8.1 g/dL Albumin 2.0 g/dL Albumin/Globulin Ratio 0.3 SARS-CoV-2 Antigen (Rapid) Negative Current Medications Medications (Trade) Dose Ordered Sig/Lynnette Route PRN Reason Start Time Stop Time Status Last Admin Dose Admin Sodium Chloride 1,000 ml @ 1,000 mls/hr 1X ONCE IV 06/09/21 20:00 06/09/21 20:59 DC 06/09/21 20:21 Iohexol (Omnipaque 300 Mg/ml) 75 ml 1X ONCE IV 06/09/21 20:15 06/09/21 20:16 DC 06/09/21 20:45 Vancomycin HCl 1.5 gm/Sodium Chloride 500 ml @ 250 mls/hr 1X ONCE IV 06/09/21 21:45 06/09/21 21:39 DC Vancomycin HCl 1 gm/Sodium Chloride 250 ml @ 250 mls/hr Q12HR ONCE IV 06/10/21 09:00 06/10/21 09:59 UNV (PRICE MARTINEZ APRN) EKG: EKG: [] (PRICE MARTINEZ APRN) Radiology/Procedures: Radiology/Procedures: PROCEDURE: CT ABD PELV W/ IV CONTRST ONLY CT OF THE ABDOMEN AND PELVIS WITH IV CONTRAST. History: Reason: r. groin pain/swelling, Comparison:October 12, 2020. Procedure: Contiguous axial images of the abdomen and pelvis were performed after the administration of 75 cc of Omni 300 IV contrast. Oral contrast: No. Findings: The liver is diffusely heterogeneous, small and has a nodular surface. The spleen is mildly enlarged. There is free fluid around the liver and spleen and along the paracolic gutters and in the pelvis. There is fluid within the right inguinal canal. The appendix is normal. There has been prior cholecystectomy. Pancreas: Unremarkable Adrenal Glands: Unremarkable Kidneys: Unremarkable There is no mass or lymphadenopathy. There is no free air. The urinary bladder appears normal. Impression: 1. Mild ascites which was not present previously and continues into the right inguinal canal. 2. Cirrhosis of the liver appears worse. 3. Mild splenomegaly likely secondary to portal hypertension appears unchanged. End Impression PQRS Compliance Statement: One or more of the following individualized dose reduction techniques were utilized for this examination: 1. Automated exposure control 2. Adjustment of the mA and/or kV according to patient size 3. Use of iterative reconstruction technique Electronically signed by: Geno Hickey III, MD (06/09/2021 9:18 PM) [facility] [place] DICTATED AND SIGNED BY: GENO HICKEY III, MD DATE: 06/09/212110 CC: EMERGENCY,DEPARTMENT; PRICE MARTINEZ APRN; CLARA RAWLS MD ~MTH0 0 [] (PRICE MARTINEZ APRN) Heart Score: C/O Chest Pain: No Risk Factors: Risk Factors: DM, Current or recent (<one month) smoker, HTN, HLP, family history of CAD, obesity. Risk Scores: Score 0 - 3: 2.5% MACE over next 6 weeks - Discharge Home Score 4 - 6: 20.3% MACE over next 6 weeks - Admit for Clinical Observation Score 7 - 10: 72.7% MACE over next 6 weeks - Early Invasive Strategies (PRICE MARTINEZ APRN) Course & Med Decision Making: Course & Med Decision Making Pertinent Labs and Imaging studies reviewed. (See chart for details) [] Patient is a 60-year-old male being seen in the ER for a wound to his right upper leg and swelling to his right groin. Work-up in the ER consisted of blood work, CT scan abdomen/pelvis, wound culture. Patient treated with fluids in the ER. CT scan of abdomen showed mild ascites extending to the right inguinal canal which is most likely the cause of his abdominal swelling. Patient was noted to have hypouremia and hyponatremia. He had an elevated bilirubin and elevated lactic acid at 2.3. His AST was 115. I discussed patient's case with Dr. Oneil who agreed to admit patient under his service for cellulitis, lactic acidosis, ascites. Patient treated with vancomycin in the ER. Patient's care transferred at this time 2147. (PRICE MARTINEZ APRN) Dragon Disclaimer: Dragon Disclaimer: This electronic medical record was generated, in whole or in part, using a voice recognition dictation system. (PRICE MARTINEZ APRN) Attending Co-Sign The patient was seen and interviewed as well as examined at the bedside. The chart was reviewed. The case was discussed. Agree with the plan of care. (TAMMY KASPER DO) Departure Departure: Impression: Primary Impression: Cellulitis Qualified Codes: L03.115 - Cellulitis of right lower limb Additional Impressions: Lactic acidosis Ascites Qualified Codes: R18.8 - Other ascites Disposition: ADMITTED INPATIENT Admitting Physician: Stephen Oneil (PRICE MARTINEZ APRN) Condition: STABLE Referrals: CLARA RAWLS MD (PCP) Scripts Cephalexin (CEPHALEXIN) 500 Mg Tablet 1 TAB PO QID for cellulitis for 10 Days, #40 TAB Prov: MARGE GARCIA MD 06/12/21 Oxycodone Hcl (OXYCODONE HCL IMMED.RELEASE ) 5 Mg Tablet 5 MG PO PRN Q4HRS PRN for PAIN for 7 Days, #42 TAB Prov: MARGE GARCIA MD 06/12/21 PRCIE MARTINEZ APRN Jun 09, 2021 20:02 TAMMY KASPER DO Jun 12, 2021 19:55
[2021-06-09 20:14] LABS: BASO # 0.1 x10^3/uL (0.0-0.2); BASO % 1 % (0-3); EOS # 0.1 x10^3/uL (0.0-0.7); EOS % 1 % (0-3); HEMATOCRIT 41.6 % (39.0-53.0); HEMOGLOBIN 14.3 g/dL (13.0-17.5); LYMPH % 24 % (24-48); MEAN CORPUSCULAR HEMOGLOBIN 34 pg (25-35); MEAN CORPUSCULAR HGB CONC 34 g/dL (31-37); MEAN CORPUSCULAR VOLUME 98 fL (79-100); MONO % 12 % (0-9); NEUT # 5.3 x10^3uL (1.8-7.7); NEUT % 63 % (31-73); PLATELET COUNT 85 x10^3/uL (140-400); RED BLOOD COUNT 4.26 x10^6/uL (4.30-5.70); RED CELL DISTRIBUTION WIDTH 15.9 % (11.5-14.5); WHITE BLOOD COUNT 8.5 x10^3/uL (4.0-11.0)
[2021-06-09] MEDS ORDERED: IOHEXOL 300 MG/ML 75 ML VIAL. IV ONE (20:15)
[2021-06-09 20:27] LABS: ANION GAP 9 (6-14); BLOOD UREA NITROGEN 7 mg/dL (8-26); BUN/CREATININE RATIO 23 (6-20); CALCIUM 7.7 mg/dL (8.5-10.1); CARBON DIOXIDE 27 mmol/L (21-32); CHLORIDE 96 mmol/L (98-107); CREATININE 0.3 mg/dL (0.7-1.3); GFR > 300.0; GLUCOSE 91 mg/dL (70-99); POTASSIUM 4.7 mmol/L (3.5-5.1); SODIUM 132 mmol/L (136-145)
[2021-06-09 20:33] LABS: ALBUMIN/GLOBULIN RATIO 0.3 (1.0-1.7); ALK PHOS 169 U/L (46-116); ALT (SGPT) 40 U/L (16-63); AST (SGOT) 115 U/L (15-37); TOTAL BILIRUBIN 2.7 mg/dL (0.2-1.0); TOTAL PROTEIN 8.1 g/dL (6.4-8.2)
--- NOTE | 2021-06-09 21:20 | RAD ---
CT OF THE ABDOMEN AND PELVIS WITH IV CONTRAST. History: Reason: r. groin pain/swelling, Comparison:October 12, 2020. Procedure: Contiguous axial images of the abdomen and pelvis were performed after the administration of 75 cc o f Omni 300 IV contrast. Oral contrast: No. Findings: The liver is diffusely heterogeneous, small and has a nodular surface. The spleen is mildly enlarged. There is free fluid around the liver and spleen and along the paracolic gutters and in the pelvis. T here is fluid within the right inguinal canal. The appendix is normal. There has been prior cholecystectomy. Pancreas: Unremarkable Adrenal Glands: Unremarkable Kidneys: Unremarkable There is no mass or lymphadenopathy. There is no free air. The urinary bladder appears normal. Impression: 1. Mild ascites which was not present previously and continues into the right inguinal canal. 2. Cirrhosis of the liver appears worse. 3. Mild splenomegaly likely secondary to portal hypertension appears unchanged. End Impression PQRS Compliance Statement: One or more of the following individualized dose reduction techniques were utilized for this examinat ion: 1. Automated exposure control 2. Adjustment of the mA and/or kV according to patient size 3. Use of iterative reconstruction technique Electronically signed by: Jose Gillis III, MD (06/09/2021 9:18 PM) [facility]
[2021-06-09] MEDS ORDERED: VANCOMYCIN 1.5 GM in IV NORMAL SALINE 500ML 500 ML IV ONE (21:45)
[2021-06-09] MEDS ORDERED: VANCOMYCIN PER PHARMACY MC PRN (22:00)
[2021-06-09] MEDS: IV NORMAL SALINE 1,000ML 1,000 ML IV SCH (22:10)
[2021-06-09] MEDS ORDERED: IV NORMAL SALINE 500ML 500 ML ONE (22:16)
[2021-06-09] MEDS ORDERED: VANCOMYCIN 1 GM VIAL. ONE (22:17)
--- NOTE | 2021-06-09 22:18 | NUR ---
Pharmacy Vancomycin Dosing Note S:Consulted to monitor and dose vancomycin started 06/09/21. O:DEAN BELL is a 60 year old M with Cellulitis, . Height: 6 feet, 3 inches Weight: 112.4 kg [place] Body Weight: 84.50 Adjusted Body Weight: 95.66 Dosing Weight: Actual Other Antibiotics: None LABS: Last BUN: 7 Last Creatinine: 0.3 Creatinine Clearance: 363.15 Last WBC: 8.5 Vancomycin Dosing: Loading Dose: 2000 mg x1 Dosing Weight: Actual Target Trough: 10-20 A: Based on: Actual weight, renal function, and indication P: 1. Begin Vancomycin 1500 mg IV q8h 2. Follow up Trough level on 06/10/21 at 2130 3. Pharmacy will continue to monitor, follow and adjust therapy as needed. KARTHIK SAHU, 06/09/21 2248
[2021-06-09 22:49] LABS: % BANDS 9 % (0-9); % EOS 2 % (0-5); % LYMPHS 14 % (24-48); % MONOS 10 % (0-10); % SEGS 65 % (35-66)
[2021-06-09] MEDS ORDERED: VANCOMYCIN 2 GM in IV NORMAL SALINE 500ML 500 ML IV ONE (23:00)
[2021-06-09 23:21] LABS: PLT ESTIMATE DECREASED (ADEQUATE)
[2021-06-09 23:30] VITALS: BP 137/89
--- NOTE | 2021-06-09 23:30 | NUR ---
Pt admitted to ICU bed 1 from ER via [facility], accompanied by EMS and nursing staff. Pt pulled over from [facility] to bed x3 assist. Admission assessment completed. Pt here for c/o right thigh cellulitis with draining wound/abscess and sepsis. Pt stated that he went to "[facility] ER a few days ago but they just sat me in a chair for 10hrs...did nothing for me..I ended up paying a mary $100 [address] me home!" Health history and home medications reviewed with pt, pt sure of most of his medications and admits to "not taking them for the last few weeks." Pt asked for me to call his [facility] for home medications, [facility] read bottles over the phone and stated that the pt has been taking them as prescribed. Pt with large draining abscess to right upper thigh with cellulitis. Copious amounts of purulent drainage noted, foul smelling. Pictures taken using [email or web address] system and new dressing applied, Pt tolerated fair. SCDs for VTE. Pt has not had any Covid vaccines. Pt lives at home with . CM, Wound care and dietary consulted. Pt was given written information regarding hospital policies, unit procedures and contact persons. Valuables were checked and left at bedside. Pt given HS snack, ate independently. IV Vanco infusing. Repeat lactic down to 1.9. Awaiting PCR Covid result, rapid was negative.
[2021-06-10] MEDS ORDERED: ONDA4TAB12 PO (00:16)
[2021-06-10 01:55] VITALS: BP 120/82
[2021-06-10] MEDS: VANCOMYCIN 1.5 GM in IV NORMAL SALINE 500ML 500 ML IV SCH ×2 (05:36→18:11)
[2021-06-10 05:40] VITALS: BP 127/81
[2021-06-10 07:11] LABS: ALBUMIN 1.8 g/dL (3.4-5.0); ALBUMIN/GLOBULIN RATIO 0.3 (1.0-1.7); CALCIUM 7.4 mg/dL (8.5-10.1); CREATININE 0.5 mg/dL (0.7-1.3); GFR 170.8; POTASSIUM 3.3 mmol/L (3.5-5.1); TOTAL BILIRUBIN 2.3 mg/dL (0.2-1.0); TOTAL PROTEIN 7.5 g/dL (6.4-8.2)
[2021-06-10] MEDS ORDERED: VANCOMYCIN 1 GM in IV NORMAL SALINE 250ML 250 ML IV ONE (09:00)
[2021-06-10] MEDS ORDERED: ONDANSETRON PF 4 MG/2 ML VIAL. IVP PRN (09:45)
--- NOTE | 2021-06-10 11:02 | HP ---
ATTENDING PHYSICIAN: Dr. Oneil CHIEF COMPLAINT: Right thigh abscess. HISTORY OF PRESENT ILLNESS: The patient is a 60-year-old gentleman with at least a 2-week history of pain, pussy drainage and abscess of the anterior portion of the right thigh. He is a chronic alcoholic. He was at [facility] ER a week ago with a similar problem. He had to wait quite a long time because they were busy and he ended up leaving AMA complaining that the wait was too long. When I saw him today, he has corey pus coming out of a large wound measuring at least 10 cm in diameter. It is reddened, fluctuating and there is abscess underneath. Unfortunately, he needs to have this wound incised and drained. We do not have surgery services here, I am going to try to get him transferred. PAST MEDICAL HISTORY: Significant for chronic alcoholism, cirrhosis of the liver, gastroesophageal reflux disease, hypertension, hepatitis, pancreatitis. He denies diabetes. He also has traumatic brain injury. I am not aware of his liver cancer. He has steel plates in the left eye socket, lower jaw and bilateral leg from trauma. ALLERGIES: He has no recorded drug allergies. CURRENT MEDICATIONS: Whether he is compliant remains to be seen. He was scheduled to take amlodipine, fluticasone, lactulose, ondansetron and propranolol. SOCIAL HISTORY: He has a history of substance abuse and continues to drink. FAMILY HISTORY: Unobtainable. REVIEW OF SYSTEMS: Significant for the localized wound. He is in quite a bit of pain. No COVID exposure. He is a person under investigation. PHYSICAL EXAMINATION: GENERAL: When I saw him, this is a pleasant gentleman. VITAL SIGNS: Initial vital signs showed a blood pressure of 120/82 mmHg, pulse is 98 and regular. He was afebrile, oxygen saturation 94% on 2 liters. HEENT: Head is without trauma. Pupils are reactive. Sclerae are nonicteric. Oropharynx clear. NECK: Supple. LUNGS: Shallow respirations. CARDIOVASCULAR: Showed regular heart tones. No gallops. ABDOMEN: Soft. No guarding or rebound tenderness. I cannot palpate any liver enlargement. EXTREMITIES: Showed a large abscess in the anterior portion of the right thigh. There are multiple sites that are draining corey pus. It is indurated and extends into the deep tissue. NEUROLOGIC FINDINGS: Focally intact. PERTINENT LABORATORY STUDIES: His admission hemoglobin was ____ grams, white count 8500. Sodium 132, potassium of 4.7 mEq, creatinine is 0.3 mg percent. Transaminases elevated, bilirubin is 2.7, albumin is only 1.8 g/dL. CT of the abdomen showed mild ascites, cirrhosis of the liver and splenomegaly with associated portal hypertension. ASSESSMENT: 1. A 60-year-old gentleman, alcoholic, with abscess in the right anterior thigh. 2. Cirrhosis of the liver. 3. Supposed history of liver cancer. 4. Noncompliance of meds. 5. Generalized debilitation. 6. Protein calorie malnutrition. PLAN: 1. Admit to our intensive care unit. 2. Start IV vancomycin. 3. I shall try to contact [facility] for transfer and surgical debridement. BENITO/CHERYL/VIJAY DR: BENITO/francis TID: [id number] CC: MARGE GARCIA MD
[2021-06-10] MEDS: IV NORMAL SALINE 1,000ML 1,000 ML IV SCH (11:05)
[2021-06-10 11:11] VITALS: BP 128/80
[2021-06-10 15:00] VITALS: BP 120/78
--- NOTE | 2021-06-10 16:30 | NUR ---
Wound Care Wound care consult for right thigh abscess. Pt has ope draining abscess to right anterior thigh that tunnels and undermines 12-12 with at least 6cm depth. Pt unable to tolerate a through measurement of all tunnels. Large amount of bloody purulent drainage noted with slough and necrotic tissue in wound bed. Multiple small openings noted. Will discuss POC with Kaleb Shukla WC director to expedite surgical intervention as [facility] has no available beds for a transfer. Lightly packed with iodoform gauze packing and covered with abd and kerlix. Recommend to change ABD PRN for drainage and packing every 1-2 days if tolerated. WC will continue to follow
[2021-06-10 19:47] VITALS: BP 149/88
--- NOTE | 2021-06-10 20:15 | NUR ---
Patient reports 10/10 pain in his right thigh and groin area. Patient has wound to right thigh. PRN fentanyl given per order for pain. Will continue to monitor.
--- NOTE | 2021-06-10 20:52 | NUR ---
Spoke with Dr Oneil and he ordered the home meds started. Re-started home meds at this time.
[2021-06-10] MEDS ORDERED: ONDANSETRON ODT 4 MG TAB.RAPDIS PO PRN (21:00)
[2021-06-10] MEDS ORDERED: cloNIDine HCL 0.1 MG TABLET PO PRN (21:30)
[2021-06-10] MEDS ORDERED: HALOPERIDOL LACT 5 MG/ML VIAL. IM PRN (21:30)
[2021-06-10] MEDS ORDERED: diphenhydrAMINE 50 MG/ML VIAL IVP PRN (21:30)
[2021-06-10] MEDS ORDERED: chlordiazePOXIDE HCL 25 MG CAPSULE PO PRN (21:30)
[2021-06-10] MEDS ORDERED: LORazepam 1 MG TABLET PO PRN (21:30)
[2021-06-10] MEDS: LACTULOSE 20 GM/30 ML SOLUTION. PO SCH (22:00)
--- NOTE | 2021-06-10 22:00 | NUR ---
PRN ativan given IV per CIWA protocol. CIWA score 12.
[2021-06-10 23:24] VITALS: BP 153/96
--- NOTE | 2021-06-10 23:48 | NUR ---
PRN fentanyl given IV per order for pain in right thigh and groin area.
[2021-06-11] MEDS: VANCOMYCIN 1.5 GM in IV NORMAL SALINE 500ML 500 ML IV SCH ×3 (02:19→17:30)
[2021-06-11 05:36] VITALS: BP 151/96
[2021-06-11] MEDS: amLODIPine BESYLATE 5 MG TABLET PO SCH (08:17)
[2021-06-11] MEDS: PROPRANOLOL ER 60 MG CAP.SA.24H. PO SCH (08:18)
[2021-06-11] MEDS: PRENATAL MULTIVITAMIN TABLET. PO SCH (08:18)
[2021-06-11] MEDS: FLUTICASONE 50MCG/NASAL SPRAY 16GM BOTTLE. NS SCH (08:19)
[2021-06-11] MEDS: LACTULOSE 20 GM/30 ML SOLUTION. PO SCH ×2 (08:19→20:48)
[2021-06-11 09:23] LABS: VANC TR 17.3 mcg/mL (10.0-20.0)
[2021-06-11 10:13] VITALS: BP 159/93
--- NOTE | 2021-06-11 11:11 | RAD ---
EXAM: Right lower extremity sonogram. HISTORY: Abscess. TECHNIQUE: Sonographic imaging of the right thigh at the site of reported concern was performed. COMPARISON: None. FINDINGS: There are cutaneous wounds within the anterior thigh at the site of palpable concern. There is extensive surrounding soft tissue edema. No loculated drainable fluid collection is seen. IMPRESSION: Extensive soft tissue edema within the right thigh surrounding cutaneous wounds. No locul ated drainable fluid collection is seen. Electronically signed by: Hilaria Gonsalez MD (06/11/2021 11:09 AM) [id number]
[2021-06-11 15:30] VITALS: BP 125/80
--- NOTE | 2021-06-11 18:05 | RAD ---
CT right lower extremity without contrast HISTORY: Right groin pain Axial helical images were obtained of the right lower extremity without contrast and axial coronal an d sagittal reconstruction was performed. FINDINGS: The visualized osseous structures appear grossly intact. The right femoral acetabular relationship is normal. The urinary bladder is mostly collapsed is apparent moderate wall thickening. The prostate i s not significantly enlarged. There is moderate free fluid in the pelvis which continues into the rig ht inguinal canal. There is hyperattenuating fluid with air within the subcutaneous fat of the anterior mid to distal ri ght thigh continuing to the skin surface. IMPRESSION: 1. Moderate ascites continues into the right inguinal canal. 2. No acute bony abnormality. 3. Hyperattenuating fluid and air in the subcutis tissues continuing to the skin surface of the anter ior right thigh suggesting a soft tissue wound with debridement. End impression PQRS Compliance Statement: One or more of the following individualized dose reduction techniques were utilized for this examinat ion: 1. Automated exposure control 2. Adjustment of the mA and/or kV according to patient size 3. Use of iterative reconstruction technique Electronically signed by: Jose Gillis III, MD (06/11/2021 6:02 PM) [id number]
--- NOTE | 2021-06-11 18:31 | NUR ---
PT DRESSING CHANGED TWICE TODAY. PT SCHEDULED TO GO TO [facility] TOMORROW MORNING FOR I&D AND THEN WILL RETURN TO [facility]. PT TO BE NPO AFTER MIDNIGHT FOR PROCEDURE. DR. GARCIA CHANGED FENTANYL ORDER TO 100MCG Q 3 HOURS PRN. PT HAS REQUESTED PAIN MEDS ALMOST EVERY 30 MINUTES TODAY. PT MAY HAVE NORVASC AND INDERAL WITH SIPS OF WATER IN THE MORNING. PT HAD AN ABDOMINAL CT D/T COMPLAINTS OF TESTICLE PAIN AND LOWER ABDOMINAL PAIN. PT CONTINUES TO RECEIVE VANCOMYCIN AND LEVOQUIN. PT FAMILY CONTACTED TODAY AND PER PT HAS A HISTORY OF HEROIN USE. PT DRESSING CONSISTS OF ABD PADS, GAUZE, AND KURLEX. PT SCORED AN 8 ON THIS NURSES INITIAL CIWA, THEN A 1 ON THE REST.
[2021-06-11 18:41] LABS: BASO % 1 % (0-3); EOS # 0.1 x10^3/uL (0.0-0.7); EOS % 2 % (0-3); HEMATOCRIT 36.1 % (39.0-53.0); HEMOGLOBIN 12.2 g/dL (13.0-17.5); LYMPH # 0.8 x10^3/uL (1.0-4.8); LYMPH % 19 % (24-48); MEAN CORPUSCULAR HEMOGLOBIN 34 pg (25-35); MEAN CORPUSCULAR HGB CONC 34 g/dL (31-37); MEAN CORPUSCULAR VOLUME 99 fL (79-100); MONO # 0.5 x10^3/uL (0.0-1.1); MONO % 13 % (0-9); NEUT # 2.6 x10^3uL (1.8-7.7); NEUT % 65 % (31-73); PLATELET COUNT 39 x10^3/uL (140-400); RED BLOOD COUNT 3.63 x10^6/uL (4.30-5.70); RED CELL DISTRIBUTION WIDTH 16.2 % (11.5-14.5)
[2021-06-11 18:59] LABS: CALCIUM 7.5 mg/dL (8.5-10.1); CREATININE 0.7 mg/dL (0.7-1.3); GFR 115.8; POTASSIUM 3.4 mmol/L (3.5-5.1)
[2021-06-11 19:05] LABS: ALBUMIN 1.6 g/dL (3.4-5.0); ALBUMIN/GLOBULIN RATIO 0.3 (1.0-1.7); TOTAL PROTEIN 6.8 g/dL (6.4-8.2)
[2021-06-11 21:00] VITALS: BP 135/84
[2021-06-11 21:04] LABS: PLT ESTIMATE DECREASED (ADEQUATE)
[2021-06-11 23:26] VITALS: BP 136/84
[2021-06-12] MEDS: VANCOMYCIN 1.5 GM in IV NORMAL SALINE 500ML 500 ML IV SCH ×2 (00:57→09:40)
--- NOTE | 2021-06-12 06:28 | PN ---
DATE: 06/11/2021 SUBJECTIVE: The patient is resting, slightly popped up in bed, in no apparent respiratory distress. He is complaining of pain mostly in his right thigh and right groin area and right testicle. He is already on 75 mcg of fentanyl every 2 hours and continued to have pain; however, he denied any chills, rigors or fever. PHYSICAL EXAMINATION: GENERAL: When I examined him, there was no pallor, jaundice, cyanosis, no lymphadenopathy, no thyromegaly, no jugular venous distention. Mild bilateral lower limb edema. VITAL SIGNS: His heart rate was 90, blood pressure is 125/80, temperature was 98.3, respiratory rate was 20 and oxygen saturation was 93% on 2 liters of oxygen. HEAD, EYES, EARS, NOSE, AND THROAT: Normocephalic, atraumatic. NECK: Supple. HEART: Normal first and second heart sounds, no gallop, rub or murmur. CHEST: Shows central trachea, equal bilateral chest expansion, air entry, vesicular breath sounds. No crepitation or rhonchi. ABDOMEN: Distended, soft, nontender. There is no guarding or rigidity. No organomegaly. All hernial orifice intact. Bowel sounds normal. NEUROLOGIC: He was awake, alert, responding appropriately. Cranial nerves intact. He is able to move his upper extremities; however, he has pain in his right lower extremity, mostly bedbound. His intake over the last 24 hours was 2300, output was 950. LABORATORY DATA: Showed a white cell count of 8500, hemoglobin 14, hematocrit 41, MCV 98 and platelet count of 85,000. His chemistry as of yesterday showed a serum sodium 133, potassium 3.3, chloride 99, bicarbonate 26, anion gap of 8, BUN 8, creatinine 0.5. Estimated GFR was 170 mL per minute. His glucose 119, calcium was 7.4. Total bilirubin 2.3. AST, ALT, alkaline phosphatase slightly elevated. Total protein 7.5, albumin was 1.8. His vancomycin trough level was 17.3 and his coronavirus by PCR was negative. He apparently has had Doppler ultrasound of the right lower extremity, which showed ____ cutaneous wounds. There is extensive soft tissue edema within the right thigh surrounding cutaneous wounds. No loculated drainable fluid collection is seen. A CT scan of the abdomen and pelvis showed that the liver is diffusely heterogenous more and has a nodular surface. The spleen is mildly enlarged. There is free fluid around the liver and spleen along the paracolic gutters and in the pelvis, there is fluid within the right inguinal canal. The appendix is normal. There has been prior cholecystectomy. Pancreas unremarkable. Adrenal glands and kidneys are unremarkable. There is no mass or lymphadenopathy. There is no free air. ____ bladder appears normal with the impression is the patient has mild ascites, which was not present before and continued to the right inguinal canal, cirrhosis of the liver, appears worse, mild splenomegaly, likely secondary to portal hypertension appears unchanged. ASSESSMENT: In summary, this is a 60-year-old male patient who was admitted with an abscess in the right anterior thigh for which he was started on IV vancomycin. He has a history of chronic alcoholism, alcoholic liver cirrhosis, gastroesophageal reflux disease, hypertension, chronic hepatitis C, history of pancreatitis. Also, history of traumatic brain injury. PLAN: My plan is to continue with the IV antibiotic. I will repeat all his labs again and I think we need to inform ____ that there is no abscess to be drained. I am not sure there is any reason for him to go there tomorrow morning. DAVION DR: Shahriar TID: [id number]
[2021-06-12 06:37] VITALS: BP 125/83
[2021-06-12] MEDS: PRENATAL MULTIVITAMIN TABLET. PO SCH (09:00)
[2021-06-12] MEDS: PROPRANOLOL ER 60 MG CAP.SA.24H. PO SCH (09:41)
[2021-06-12] MEDS: FLUTICASONE 50MCG/NASAL SPRAY 16GM BOTTLE. NS SCH (09:41)
[2021-06-12] MEDS: LACTULOSE 20 GM/30 ML SOLUTION. PO SCH ×2 (09:42→20:45)
[2021-06-12] MEDS: amLODIPine BESYLATE 5 MG TABLET PO SCH (09:43)
[2021-06-12 11:14] VITALS: BP 116/84
[2021-06-12 15:14] VITALS: BP 152/89
--- NOTE | 2021-06-12 15:41 | DISCH ---
HOME HEALTH DISCHARGE/MEDS DISCHARGE INFORMATION: Discharge Date: Jun 12, 2021 Final Diagnosis: Problems Medical Problems: (1) Ascites Status: Acute (2) Cellulitis Status: Acute (3) Lactic acidosis Status: Acute Condition on Discharge: Stable CODE STATUS: Code Status: Full HOME HEALTH: Face to Face: I certify this patient is under my care and that I, or a nurse practitioner or physician's assistant mechanic working with me, had a face to face encounter that meets the physician face to face encounter requirements with this patient on 06/12/2021 Medical Condition(s): Other Usp For: Admin/Educate Injections Physical Therapy For: Evalulation/Treatment Occupational Therapy For: Evaluation/Treatment Homebound Status Met By: Unsteady balance w/ amb, POST DISCHARGE ORDERS: Activity Instructions for Disc: Activity as tolerated DIET AFTER DISCHARGE: Low Sodium 2 gm CERTIFICATION STATEMENT: Certification Statement: Based on the above finding, I certify that this patient is confined to the home and needs intermittent detention care, physical therapy and/or speech therapy, or continues to need occupational therapy.~ This patient is under my care, and I have initiated the establishment of the plan of care.~ This patient will be followed by myself or a community physician who will periodically review the plan of care. DISCHARGE MEDICATIONS: Home Meds Reported Medications Ondansetron (ONDANSETRON ODT) 4 Mg Tab.rapdis, 8 MG PO PRN Q6HRS PRN for NAUSEA/VOMITING LAST DOSE GIVEN: DATE: TIME: NEXT DOSE DUE: DATE: TIME: 06/10/21 Vit #76/Iron,Carb/FA (Pnv 29-1 Tablet) 1 Each Tablet, 1 EACH PO DAILY for Iron supplementation LAST DOSE GIVEN: DATE: TIME: NEXT DOSE DUE: DATE: TIME: 01/06/19 Lactulose (LACTULOSE) 10 Gm/15 Ml Solution, 30 ML PO BID for Liver support LAST DOSE GIVEN: DATE: TIME: NEXT DOSE DUE: DATE: TIME: 01/06/19 Fluticasone Propionate (FLUTICASONE PROPIONATE NASAL SPRAY) 16 Gm [place].susp, 2 SPR NS DAILY for Nasal polyps/allergies LAST DOSE GIVEN: DATE: TIME: NEXT DOSE DUE: DATE: TIME: 01/06/19 Amlodipine Besylate (AMLODIPINE BESYLATE) 5 Mg Tablet, 5 MG PO DAILY for CHF/HTN LAST DOSE GIVEN: DATE: TIME: NEXT DOSE DUE: DATE: TIME: 01/06/19 Propranolol Hcl (PROPRANOLOL HCL) 120 Mg Cap.sa.24h, 120 MG PO DAILY for CHF/HTN LAST DOSE GIVEN: DATE: TIME: NEXT DOSE DUE: DATE: TIME: 01/06/19 MARGE GARCIA MD Jun 12, 2021 15:41
[2021-06-12] MEDS ORDERED: OXYC5TAB4 PO (15:49)
[2021-06-12] MEDS ORDERED: CEPH500T PO (15:51)
[2021-06-12 20:39] VITALS: BP 149/88
--- NOTE | 2021-06-12 21:03 | DS ---
DATE OF DISCHARGE: 06/12/2021 HOSPITAL COURSE: The patient is a 60-year-old male patient who was admitted with wound on his anterior aspect of the thigh. Initially, the impression was he had an abscess there and he was started on IV antibiotic in the form of vancomycin as well as levofloxacin and arrangement was made for him to be transferred to [facility] operating theater to be seen by Dr. Ayoub for incision and drainage and the ultrasound showed no evidence of an abscess in his anterior aspect of the right thigh and showed extensive soft tissue edema within the right thigh surrounding cutaneous wounds. No loculated drainable fluid collection is seen. I actually went further and did a CT scan of the right lower extremity, which again showed moderate ascites continues into the right inguinal canal. There is no acute bony abnormality, has hyperattenuating fluid and air in the subcutaneous tissue continuing the skin surface of the anterior thigh, suggesting soft tissue wound with debridement. His blood culture has grown Gram-positive cocci identified as Streptococcus intermedius. As he remained hemodynamically stable, afebrile, his white cell count was normal, a decision was made to discharge him home with Home Health, to continue on oral antibiotic and wound care. An appointment was made for him to be seen at the wound care clinic in [facility] and the wound care team will follow him at home if a wound VAC was applied. PHYSICAL EXAMINATION: GENERAL: When I saw him this afternoon, he looked well and was clearly in no apparent respiratory distress. He was jaundiced, pale, not cyanosed. No lymphadenopathy, no thyromegaly, no jugular venous distention, but generalized anasarca. VITAL SIGNS: His heart rate was 82, blood pressure 152/89, temperature was 98.2, respiratory rate was 17 and oxygen saturation was 94%. HEAD, EYES, EARS, NOSE AND THROAT: Normocephalic, atraumatic. NECK: Supple. HEART: Showed normal first and second heart sounds, no gallop, rub or murmur. CHEST: Clear to auscultation, no crepitation or rhonchi. ABDOMEN: Distended, soft, nontender with positive shifting dullness. NEUROLOGIC: He was awake, alert, responding appropriately. All cranial nerves intact. He moves extremities without difficulty. He has no flapping tremor. LABORATORY DATA: This morning showed a serum sodium of 133, potassium of 3.4, chloride 102, bicarbonate 27, anion gap of 4, BUN 9, creatinine 0.7. Estimated GFR was 115 mL per minute. His glucose 138, calcium was 7.5. Total bilirubin 2. AST, ALT, alkaline phosphatase slightly elevated. Ammonia was 56. CK was 36 and total protein 6.8, albumin was 1.5. His prothrombin time was 16.5, INR 1.5. Vancomycin was high at 17.3 and his coronavirus rapid testing and by PCR were both negative. DISCHARGE MEDICATIONS: He was discharged home with Home Health, to continue on following medications, cephalexin 500 mg 4 times a day for 10 days, oxycodone 5 mg every 4 hours as needed, amlodipine 5 mg once a day, Flonase 2 sprays to each nostril daily, lactulose 30 mL twice a day, ondansetron 8 mg every 6 hours, multivitamin 1 tablet once a day, propranolol 120 mg daily. FINAL DISCHARGE DIAGNOSES: Wound on the anterior aspect of the right thigh with surrounding cellulitis, alcoholism and alcoholic liver cirrhosis, chronic hepatitis C, gastroesophageal reflux disease, hypertension, history of traumatic brain injury. IAN DR: Shahriar TID: [id number]
[2021-06-13 05:29] VITALS: BP 128/84
[2021-06-13] MEDS: LACTULOSE 20 GM/30 ML SOLUTION. PO SCH (08:37)
[2021-06-13] MEDS: amLODIPine BESYLATE 5 MG TABLET PO SCH (08:37)
[2021-06-13] MEDS: FLUTICASONE 50MCG/NASAL SPRAY 16GM BOTTLE. NS SCH (08:37)
[2021-06-13] MEDS: PROPRANOLOL ER 60 MG CAP.SA.24H. PO SCH (08:38)
[2021-06-13] MEDS: PRENATAL MULTIVITAMIN TABLET. PO SCH (08:38)
[2021-06-13 11:18] VITALS: BP 105/73
--- NOTE | 2021-06-13 14:36 | DISCH ---
DISCHARGE ORDERS DISCHARGE DATE: Jun 13, 2021 FINAL DIAGNOSIS right thigh wound with cellulitis alcoholic liver cirrhosis CONDITION AT DISCHARGE: Stable Code Status: Full SNF STAY <30 DAYS: Yes POST DISCHARGE ORDERS: ACTIVITY ORDERS: Activity as tolerated WEIGHT BEARING STATUS: No restrictions DIET AFTER DISCHARGE: Low Sodium 2 gm TREATMENT/EQUIPMENT ORDERS: ADAPTIVE EQUIPMENT NEEDED: None DISCHARGE MEDICATIONS: Home Meds Active Scripts Cephalexin (CEPHALEXIN) 500 Mg Tablet, 1 TAB PO QID for cellulitis for 10 Days, #40 TAB Prov:MARGE GARCIA MD 06/12/21 Oxycodone Hcl (OXYCODONE HCL IMMED.RELEASE ) 5 Mg Tablet, 5 MG PO PRN Q4HRS PRN for PAIN for 7 Days, #42 TAB Prov:MARGE GARCIA MD 06/12/21 Reported Medications Ondansetron (ONDANSETRON ODT) 4 Mg Tab.rapdis, 8 MG PO PRN Q6HRS PRN for NAUSEA/VOMITING LAST DOSE GIVEN: DATE: TIME: NEXT DOSE DUE: DATE: TIME: 06/10/21 Vit #76/Iron,Carb/FA (Pnv 29-1 Tablet) 1 Each Tablet, 1 EACH PO DAILY for Iron supplementation LAST DOSE GIVEN: DATE: TIME: NEXT DOSE DUE: DATE: TIME: 01/06/19 Lactulose (LACTULOSE) 10 Gm/15 Ml Solution, 30 ML PO BID for Liver support LAST DOSE GIVEN: DATE: TIME: NEXT DOSE DUE: DATE: TIME: 01/06/19 Fluticasone Propionate (FLUTICASONE PROPIONATE NASAL SPRAY) 16 Gm [place].susp, 2 SPR NS DAILY for Nasal polyps/allergies LAST DOSE GIVEN: DATE: TIME: NEXT DOSE DUE: DATE: TIME: 01/06/19 Amlodipine Besylate (AMLODIPINE BESYLATE) 5 Mg Tablet, 5 MG PO DAILY for CHF/HTN LAST DOSE GIVEN: DATE: TIME: NEXT DOSE DUE: DATE: TIME: 01/06/19 Propranolol Hcl (PROPRANOLOL HCL) 120 Mg Cap.sa.24h, 120 MG PO DAILY for CHF/HTN LAST DOSE GIVEN: DATE: TIME: NEXT DOSE DUE: DATE: TIME: 01/06/19 MARGE GARCIA MD Jun 13, 2021 14:36
[2021-06-13 15:45] VITALS: BP 124/72
[2021-06-13] MEDS ORDERED: OXYC5TAB4 PO (16:21)
--- NOTE | 2021-06-13 18:40 | NUR ---
NURSING NOTE PT READY TO DISCHARGE. PICC LINE JUST PLACED-RIGHT UPPER ARM. X-RAY TO CONFIRM PLACEMENT. PT REQUESTED PAIN MEDS MULTIPLE TIMES TODAY. PT HAD SEVERAL BOWEL MOVEMENTS. DRESSING CDI.
--- NOTE | 2021-06-13 18:44 | RAD ---
XR CHEST 1V Clinical History: Reason: PICC LINE PLACEMENT / Spl. Instructions: / History: Technique: AP view of the chest was obtained at 06/13/2021 6:09 PM. Comparison: None. Findings: The cardiomediastinal silhouette is normal. The pulmonary vasculature is normal. There is linear opac ities in the mid and lower left lung. There has been placement of a right PICC with its tip directed downward in the low SVC. Impression: Left-sided infiltrates likely discoid atelectasis. Right PICC well-positioned. Electronically signed by: Jose Gillis III, MD (06/13/2021 6:42 PM) SELENE
[2021-06-13] MEDS ORDERED: LACTOBACILLUS RHAMNOSUS GG 1 CAPSULE. PO SCH (21:00)
--- NOTE | 2021-06-13 22:30 | NUR ---
EMS CAME TO TRANSFER PT TO [facility]. IV WAS DISCONTINUED AND DISCHARGE PACKET GIVEN TO EMS. PT REQUESTED TO HAVE PAIN MEDICATION BEFORE BEING RELEASED. MEDICATION WAS GIVEN 2 HRS AGO AND NOT ABLE TO ADMINISTER. PT LEFT WITH [facility]. REPORT WAS CALLED TO MARGARITA AT [facility].
== END 2021-06-13 21:30 | DRG 602 ==
LOC: ER 19:05 → ICU 21:56 → 1 SOUTH 06-10 18:00
PROVIDERS: ADMIT Hospitalist; ATTEND Hospitalist
PROC: 02HV33Z Insertion of Infusion Device into Superior Vena Cava, Percutaneous Approach (ICD-10-PCS; principal; 2021-06-13)
DX: L02.415 Cutaneous abscess of right lower limb (principal); E43 Unspecified severe protein-calorie malnutrition; E87.2 Acidosis; L03.115 Cellulitis of right lower limb; E78.00 Pure hypercholesterolemia, unspecified; I25.10 Atherosclerotic heart disease of native coronary artery without angina pectoris; F41.9 Anxiety disorder, unspecified; F32.9 Major depressive disorder, single episode, unspecified; M19.90 Unspecified osteoarthritis, unspecified site; M79.7 Fibromyalgia; J44.9 Chronic obstructive pulmonary disease, unspecified; K21.9 Gastro-esophageal reflux disease without esophagitis; I10 Essential (primary) hypertension; B18.2 Chronic viral hepatitis C; K70.31 Alcoholic cirrhosis of liver with ascites; F10.20 Alcohol dependence, uncomplicated; Z91.14 Patient's other noncompliance with medication regimen; Z87.820 Personal history of traumatic brain injury; Z85.05 Personal history of malignant neoplasm of liver; I25.2 Old myocardial infarction; Z90.49 Acquired absence of other specified parts of digestive tract; Z20.822 Contact with and (suspected) exposure to COVID-19; Z68.28 Body mass index [BMI] 28.0-28.9, adult
CPT/HCPCS: 36415; 71045; 73700; 74177; 76881; 80053; 80202; 82140; 82550; 83605; 85007; 85025; 85610; 87040; 87070; 87077; 87426; 96361; 96365; 96366; 96375; J0696; J1956; J2060; J2405; J3010; J3370; J7040; Q9967; U0003; 97110; 97530; 99285-25; J7030

== ENCOUNTER 2021-06-20 09:01 | Emergency (ER) | payer OTHER ==
[~2021-06-20] VITALS: Ht 190.5 cm; Wt 104.7 kg
[~2021-06-20 09:01] MED LIST changes: +CEPH500T PO; +ONDA4TAB12 PO; +OXYC5TAB4 PO
[2021-06-20 09:05] VITALS: BP 136/89
--- NOTE | 2021-06-20 10:09 | PHYS DOC ---
Past History Past Medical History: Alcoholism, Anxiety, Arthritis, CAD, Cancer, COPD, Depression, Fibromyalgia, GERD, High Cholesterol, Hypertension, Hepatitis, Liver Disease, [place], Pancreatitis, Other Additional Past Medical Histor: Traumatic brain; stage 4 liver disease; elev ammonia levels Past Surgical History: Cholecystectomy, Other Additional Past Surgical Histo: steel plate in lt eye socket, lower jaw and bijal lower legs Alcohol Use: None Drug Use: Heroin General Adult EDM: Chief Complaint: GROIN PAIN HPI: HPI: 60-year-old male presents via EMS from his rehab facility with right groin pain. The patient tells me he does not understand this thing it is. The patient has been imaged in this ER a couple of times. He has also been admitted to this hospital. He does seem to have some short-term memory impairment. I think the patient's primary concern is that he is not getting adequate pain control at the care facility. Patient is a former alcoholic. He has been on much higher dose narcotics in the past. He is supposed to get paracentesis for ascites but missed his most recent appointment. He denies any new concerns or complaints. The patient's family requested that the patient go to , but EMS brought him here due to EMS volume. Review of Systems: Review of Systems: Constitutional: Denies fever or chills Eyes: Denies change in visual acuity HENT: Denies nasal congestion or sore throat Respiratory: Denies cough or shortness of breath Cardiovascular: Denies chest pain or edema GI: Right groin pain : Denies dysuria Musculoskeletal: Denies back pain or joint pain Integument: Denies rash Neurologic: Denies headache, focal weakness or sensory changes Endocrine: Denies polyuria or polydipsia Lymphatic: Denies swollen glands Psychiatric: Denies depression or anxiety Allergies: Allergies: Allergies Coded Allergies Type Severity Reaction Last Updated Verified No Known Allergies Allergy Unknown 12/09/20 Yes Physical Exam: PE: Constitutional: Well developed, well nourished, no acute distress, non-toxic appearance. [] HENT: Normocephalic, atraumatic, bilateral external ears normal, oropharynx moist, no oral exudates, nose normal. [] Eyes: PERRLA, EOMI, conjunctiva normal, no discharge. [] Neck: Normal range of motion, no tenderness, supple, no stridor. [] Cardiovascular:Heart rate regular rhythm, no murmur [] Lungs & Thorax: Bilateral breath sounds clear to auscultation [] Abdomen: Bowel sounds normal, firm but not tympanic, ascites extending into the right groin. [] Skin: Wound of the right thigh covered with clean gauze dressing. [] Back: No tenderness, no CVA tenderness. [] Extremities: No tenderness, no cyanosis, no clubbing, ROM intact, no edema. [] Neurologic: Alert and oriented X 3, normal motor function, normal sensory function, no focal deficits noted. [] Psychologic: Affect normal, judgement normal, mood normal. [] Current Patient Data: Vital Signs: Vital Signs Date Time Temp Pulse Resp B/P (MAP) Pulse Ox O2 Delivery O2 Flow Rate FiO2 06/20/21 09:05 98.0 78 136/89 96 EKG: EKG: [] Radiology/Procedures: Radiology/Procedures: [] Heart Score: C/O Chest Pain: N/A Risk Factors: Risk Factors: DM, Current or recent (<one month) smoker, HTN, HLP, family history of CAD, obesity. Risk Scores: Score 0 - 3: 2.5% MACE over next 6 weeks - Discharge Home Score 4 - 6: 20.3% MACE over next 6 weeks - Admit for Clinical Observation Score 7 - 10: 72.7% MACE over next 6 weeks - Early Invasive Strategies Course & Med Decision Making: Course & Med Decision Making Pertinent Labs and Imaging studies reviewed. (See chart for details) I think the patient's primary concern is he is frustrated that his pain management has not been addressed at his care facility. I explained to the patient that I can give him a single dose of medication here, but that he needs to discuss with them getting on longer duration medication. The provider at his care facility will have to coordinate this. Patient states verbal understandi ng. I also printed off his recent CT scans and explained his ascites and extension into the groin region. I have encouraged him to reschedule his paracentesis if his liver doctor still feels that it is necessary. Based on his presentation, vital signs and recent work-ups, I do not believe the patient needs further work-up at this time he is stable for discharge at this time. [] Dragon Disclaimer: Dragon Disclaimer: This electronic medical record was generated, in whole or in part, using a voice recognition dictation system. Departure Departure: Impression: Primary Impression: Alcoholic cirrhosis of liver Additional Impression: Ascites Disposition: HOME / SELF CARE / HOMELESS Condition: STABLE Referrals: CLARA RAWLS MD (PCP) Patient Instructions: Ascites Additional Instructions: You should talk with your primary provider or the provider for your care facility to discuss longer acting pain medication. This would likely control your pain more evenly with less frequent dosing. Overall you would likely feel better. It is important however that she do not take more medication than is absolutely necessary. TAMMY KASPER DO Jun 20, 2021 10:09
[2021-06-20] MEDS ORDERED: oxyCODONE ER 10 MG TAB.ER.12H PO ONE (10:15)
== END 2021-06-20 11:35 | disposition home or self-care (01) ==
LOC: ER 09:01
DX: K70.31 Alcoholic cirrhosis of liver with ascites (principal); M19.90 Unspecified osteoarthritis, unspecified site; I25.10 Atherosclerotic heart disease of native coronary artery without angina pectoris; J44.9 Chronic obstructive pulmonary disease, unspecified; F41.9 Anxiety disorder, unspecified; F32.9 Major depressive disorder, single episode, unspecified; M79.7 Fibromyalgia; K21.9 Gastro-esophageal reflux disease without esophagitis; E78.00 Pure hypercholesterolemia, unspecified; I10 Essential (primary) hypertension; I25.2 Old myocardial infarction; F10.20 Alcohol dependence, uncomplicated; Z90.49 Acquired absence of other specified parts of digestive tract; Y90.9 Presence of alcohol in blood, level not specified
CPT/HCPCS: 99283

== ENCOUNTER 2021-06-27 03:43 | Emergency (ER) | payer OTHER ==
[~2021-06-27] VITALS: Ht 190.5 cm; Wt 114.7 kg
--- NOTE | 2021-06-27 03:59 | PHYS DOC ---
Past History Past Medical History: Alcoholism, Anxiety, Arthritis, CAD, Cancer, COPD, Depression, Fibromyalgia, GERD, High Cholesterol, Hypertension, Hepatitis, Liver Disease, [place], Pancreatitis, Other Additional Past Medical Histor: Traumatic brain; stage 4 liver disease; elev ammonia levels Past Surgical History: Cholecystectomy, Other Additional Past Surgical Histo: steel plate in lt eye socket, lower jaw and bijal lower legs Alcohol Use: None Drug Use: Heroin Adult General Chief Complaint Chief Complaint: LOWER EXT PAIN HPI HPI Patient is a 60-year-old male with a past medical history significant for CAD, cirrhosis, hypertension, hyperlipidemia and bilateral lower extremity venous insufficiency who was recently in the hospital for cellulitis of the leg which he completed treatment for and was discharged from the hospital and now and the rehab facility who presents with a chief complaint of lower leg pain. States th at his lower legs hurt, right more than left, 7 out of 10, sharp in nature. States they gave him some Percocet at the facility but are only given him 1 every 6 hours which she says does not do anything. Denies any recent other traumas, fevers, chest pain, shortness of breath, abdominal pain, nausea, vomiting, diarrhea, hematuria or blood in the stool. States that he did not think he should come to the emergency department but the healthcare worker at the rehab facility made him come. Review of Systems Review of Systems Review of systems otherwise unremarkable except noted in HPI Allergies Allergies Allergies Coded Allergies Type Severity Reaction Last Updated Verified No Known Allergies Allergy Unknown 06/27/21 Yes Physical Exam Physical Exam Constitutional: Well developed, well nourished, no acute distress, non-toxic appearance. [] HENT: Normocephalic, atraumatic, bilateral external ears normal, oropharynx moist, no oral exudates, nose normal. [] Eyes: conjunctiva normal, no discharge. [] Neck: Normal range of motion, no tenderness, supple, no stridor. [] Cardiovascular:Heart rate regular rhythm, no murmur [] Lungs & Thorax: Bilateral breath sounds clear to auscultation [] Abdomen: soft, no tenderness, no masses, no pulsatile masses. [] Skin: Warm, dry, no erythema, no rash. [] Back: No tenderness, no CVA tenderness. [] Extremities: Bilateral lower extremities, warm, edematous with stasis dermatitis suggestive of chronic venous insufficiency, sensation intact, movement intact, neurovascular exam intact. PICC line in upper right arm. Neurologic: Alert and oriented X 3, no focal deficits noted. [] Psychologic: Affect normal, judgement normal, mood normal. [] EKG EKG [] Radiology/Procedures Radiology/Procedures [] Heart Score C/O Chest Pain: No Risk Factors: Risk Factors: DM, Current or recent (<one month) smoker, HTN, HLP, family history of CAD, obesity. Risk Scores: Risk Factors: DM, Current or recent (<one month) smoker, HTN, HLP, family history of CAD, obesity. Course & Med Decision Making Course & Med Decision Making Patient is a 60-year-old male who presents with a chief complaint of bilateral lower extremity pain, worse on the right and left Vital signs not concerning. Physical exam noted above. Given pain medicine. Lactic acid normal. Laboratory analysis not concerning. Pain controlled. Discussed all findings with patient. Advised to discuss with the rehab doctor this morning pain management strategies. Advised to wear compression stockings and keep legs elevated as much as possible. Also advised to call primary care physician this morning to update on ED visit. Gave return precautions to the ED. Patient grateful, verbalized understanding and agreed with plan of discharge. [] Dragon Disclaimer Dragon Disclaimer This electronic medical record was generated, in whole or in part, using a voice recognition dictation system. Departure Departure: Impression: Primary Impression: Leg pain Additional Impression: Venous insufficiency of both lower extremities Disposition: HOME / SELF CARE / HOMELESS Condition: STABLE Referrals: CLARA RAWLS MD (PCP) Patient Instructions: Stasis Dermatitis, Venous Stasis and Chronic Venous Insufficiency Additional Instructions: Thank you for coming into the emergency department tonight and allowing us to take care of you. Please read all of the attached information very carefully to go back over some of the things we discussed. Please wear your compression stockings as much as possible, and keep your legs elevated. Please take all your medications as prescribed. Please discuss with the rehab physician this morning pain management strategies and call your primary care physician as well to discuss your rehab progress and ED visit and pain management strategies at home. Please continue your antibiotic regimen as prescribed. Please come back to the ED with new or concerning symptoms as discussed. Problem Qualifiers LEÓN CRAMER MD Jun 27, 2021 03:59
[2021-06-27] MEDS ORDERED: oxyCODONE/APAP 5/325 1 TAB TABLET PO ONE ×2 (04:30→05:30)
[2021-06-27 04:34] LABS: CALCIUM 8.2 mg/dL (8.5-10.1); CREATININE 0.5 mg/dL (0.7-1.3); GFR 170.8; POTASSIUM 4.4 mmol/L (3.5-5.1)
[2021-06-27 04:38] LABS: BASO % 1 % (0-3); EOS # 0.1 x10^3/uL (0.0-0.7); EOS % 2 % (0-3); LYMPH # 0.9 x10^3/uL (1.0-4.8); LYMPH % 35 % (24-48); MEAN CORPUSCULAR HEMOGLOBIN 33 pg (25-35); MEAN CORPUSCULAR HGB CONC 33 g/dL (31-37); MEAN CORPUSCULAR VOLUME 100 fL (79-100); MONO # 0.5 x10^3/uL (0.0-1.1); MONO % 18 % (0-9); NEUT # 1.2 x10^3uL (1.8-7.7); NEUT % 44 % (31-73); PLATELET COUNT 62 x10^3/uL (140-400); RED BLOOD COUNT 3.31 x10^6/uL (4.30-5.70); RED CELL DISTRIBUTION WIDTH 17.1 % (11.5-14.5); WHITE BLOOD COUNT 2.6 x10^3/uL (4.0-11.0)
[2021-06-27 04:45] VITALS: BP 123/54
[2021-06-27 05:20] LABS: % EOS 2 % (0-5); % LYMPHS 33 % (24-48); % MONOS 17 % (0-10); % SEGS 48 % (35-66)
[2021-06-27 05:21] LABS: PLT ESTIMATE DECREASED (ADEQUATE)
== END 2021-06-27 05:26 | disposition home or self-care (01) ==
LOC: ER 03:43
DX: I83.12 Varicose veins of left lower extremity with inflammation (principal); I83.11 Varicose veins of right lower extremity with inflammation; F41.9 Anxiety disorder, unspecified; M19.90 Unspecified osteoarthritis, unspecified site; I25.10 Atherosclerotic heart disease of native coronary artery without angina pectoris; J44.9 Chronic obstructive pulmonary disease, unspecified; F32.9 Major depressive disorder, single episode, unspecified; M79.7 Fibromyalgia; K21.9 Gastro-esophageal reflux disease without esophagitis; E78.00 Pure hypercholesterolemia, unspecified; I10 Essential (primary) hypertension; I25.2 Old myocardial infarction; F10.20 Alcohol dependence, uncomplicated; Y90.9 Presence of alcohol in blood, level not specified
CPT/HCPCS: 36415; 80048; 83605; 85007; 85025; 99284

== ENCOUNTER 2021-07-31 20:32 | Emergency (ER) | payer OTHER ==
[~2021-07-31] VITALS: Ht 190.5 cm; Wt 114.6 kg
[2021-07-31] MEDS ORDERED: ONDANSETRON PF 4 MG/2 ML VIAL. IVP ONE (21:00)
[2021-07-31] MEDS ORDERED: FAMOTIDINE 20 MG/2 ML VIAL IVP ONE (21:00)
[2021-07-31 21:04] LABS: BASO % 1 % (0-3); EOS # 0.1 x10^3/uL (0.0-0.7); EOS % 2 % (0-3); HEMATOCRIT 36.5 % (39.0-53.0); HEMOGLOBIN 12.2 g/dL (13.0-17.5); LYMPH # 1.6 x10^3/uL (1.0-4.8); LYMPH % 38 % (24-48); MEAN CORPUSCULAR HEMOGLOBIN 33 pg (25-35); MEAN CORPUSCULAR HGB CONC 34 g/dL (31-37); MEAN CORPUSCULAR VOLUME 98 fL (79-100); MONO # 0.6 x10^3/uL (0.0-1.1); MONO % 14 % (0-9); NEUT # 1.9 x10^3uL (1.8-7.7); NEUT % 45 % (31-73); PLATELET COUNT 83 x10^3/uL (140-400); RED BLOOD COUNT 3.74 x10^6/uL (4.30-5.70); RED CELL DISTRIBUTION WIDTH 15.5 % (11.5-14.5); WHITE BLOOD COUNT 4.3 x10^3/uL (4.0-11.0)
[2021-07-31 21:13] LABS: CALCIUM 8.3 mg/dL (8.5-10.1); CREATININE 0.5 mg/dL (0.7-1.3); GFR 170.8; POTASSIUM 3.6 mmol/L (3.5-5.1)
[2021-07-31 21:18] LABS: ALBUMIN 2.5 g/dL (3.4-5.0); ALBUMIN/GLOBULIN RATIO 0.5 (1.0-1.7)
--- NOTE | 2021-07-31 22:11 | PHYS DOC ---
Past History Past Medical History: Alcoholism, Anxiety, Arthritis, CAD, Cancer, COPD, Depression, Fibromyalgia, GERD, High Cholesterol, Hypertension, Hepatitis, Liver Disease, [place], Pancreatitis, Other Additional Past Medical Histor: Traumatic brain; stage 4 liver disease; elev ammonia levels Past Surgical History: Cholecystectomy, Other Additional Past Surgical Histo: steel plate in lt eye socket, lower jaw and bijal lower legs Alcohol Use: Sober Drug Use: Heroin Adult General Chief Complaint Chief Complaint: NAUSEA/VOMITING/[facility] HPI Patient is a 60 year old male who presents with nausea, vomiting and not feeling well. He has history of alcoholic liver cirrhosis and ascites. He last had his ascites drained approximately 2 to 3 weeks ago at [facility]. He presents with complaint of increasing ascites, mild shortness of breath, abdominal discomfort but no fever. He did have what he says 2 sips of beer earlier in the day and then 2 sips prior to arrival. He has some diarrhea but no blood in the stool. Denies any blood in the vomiting. He denies any chest pain or headache. Denies any focal weakness or numbness. Review of Systems Review of Systems Constitutional: Denies fever or chills Eyes: Denies change in visual acuity, redness, or eye pain HENT: Denies nasal congestion or sore throat Respiratory: Denies cough but has mild shortness of breath Cardiovascular: No additional information not addressed in HPI GI: as documented in HPI : Denies dysuria or hematuria Musculoskeletal: Denies back pain or joint pain Integument: Denies rash or skin lesions Neurologic: Denies headache, focal weakness or sensory changes Endocrine: Denies polyuria or polydipsia All other systems were reviewed and found to be within normal limits, except as documented in this note. Current Medications Current Medications Current Medications Medications (Trade) Dose Ordered Sig/Lynnette Start Time Stop Time Status Last Admin Dose Admin Famotidine (Pepcid Vial) 20 mg 1X ONCE 07/31/21 21:00 07/31/21 21:01 DC 07/31/21 21:07 20 MG Ondansetron HCl (Zofran) 4 mg 1X ONCE 07/31/21 21:00 07/31/21 21:01 DC 07/31/21 21:07 4 MG Allergies Allergies Allergies Coded Allergies Type Severity Reaction Last Updated Verified No Known Allergies Allergy Unknown 06/27/21 Yes Physical Exam Physical Exam Constitutional: Well developed, well nourished, no acute distress, non-toxic appearance. HENT: Normocephalic, atraumatic, bilateral external ears normal, oropharynx moist, no oral exudates, nose normal. Eyes: PERRLA, EOMI, conjunctiva normal, no discharge. Neck: Normal range of motion, no tenderness, supple, no stridor. Cardiovascular:Heart rate regular rhythm, no murmur Lungs & Thorax: Bilateral breath sounds clear to auscultation Abdomen: Abdomen tense but nontender, ascites easily palpable but bowel sounds are present. No significant hernia noted. Skin: Warm, dry, no erythema, no rash. Back: No tenderness, no CVA tenderness. Extremities: No tenderness, no cyanosis, no clubbing, ROM intact, no edema. Neurologic: Alert and oriented X 3, normal motor function, normal sensory function, no focal deficits noted. Psychologic: Affect normal, judgement normal, mood normal. Current Patient Data Vital Signs Vital Signs Date Time Temp Pulse Resp B/P (MAP) Pulse Ox O2 Delivery O2 Flow Rate FiO2 07/31/21 20:35 97.6 72 20 150/90 (110) 98 Room Air Lab Results Laboratory Tests Test 07/31/21 20:43 07/31/21 21:09 White Blood Count 4.3 x10^3/uL (4.0-11.0) Red Blood Count 3.74 x10^6/uL (4.30-5.70) L Hemoglobin 12.2 g/dL (13.0-17.5) L Hematocrit 36.5 % (39.0-53.0) L Mean Corpuscular Volume 98 fL (79-100) Mean Corpuscular Hemoglobin 33 pg (25-35) Mean Corpuscular Hemoglobin Concent 34 g/dL (31-37) Red Cell Distribution Width 15.5 % (11.5-14.5) H Platelet Count 83 x10^3/uL (140-400) L Neutrophils (%) (Auto) 45 % (31-73) Lymphocytes (%) (Auto) 38 % (24-48) Monocytes (%) (Auto) 14 % (0-9) H Eosinophils (%) (Auto) 2 % (0-3) Basophils (%) (Auto) 1 % (0-3) Neutrophils # (Auto) 1.9 x10^3uL (1.8-7.7) Lymphocytes # (Auto) 1.6 x10^3/uL (1.0-4.8) Monocytes # (Auto) 0.6 x10^3/uL (0.0-1.1) Eosinophils # (Auto) 0.1 x10^3/uL (0.0-0.7) Basophils # (Auto) 0.0 x10^3/uL (0.0-0.2) Sodium Level 131 mmol/L (136-145) L Potassium Level 3.6 mmol/L (3.5-5.1) Chloride Level 97 mmol/L (98-107) L Carbon Dioxide Level 28 mmol/L (21-32) Anion Gap 6 (6-14) Blood Urea Nitrogen 2 mg/dL (8-26) L Creatinine 0.5 mg/dL (0.7-1.3) L Estimated GFR (Cockcroft-Gault) 170.8 BUN/Creatinine Ratio 4 (6-20) L Glucose Level 89 mg/dL (70-99) Calcium Level 8.3 mg/dL (8.5-10.1) L Total Bilirubin 3.0 mg/dL (0.2-1.0) H Aspartate Amino Transferase (AST) 66 U/L (15-37) H Alanine Aminotransferase (ALT) 26 U/L (16-63) Alkaline Phosphatase 135 U/L (46-116) H Ammonia 40 mcmol/L (11-34) H Total Protein 8.0 g/dL (6.4-8.2) Albumin 2.5 g/dL (3.4-5.0) L Albumin/Globulin Ratio 0.5 (1.0-1.7) L Prothrombin Time 15.6 SEC (9.4-11.4) H Prothrombin Time INR 1.5 (0.9-1.1) H EKG EKG [] Radiology/Procedures Radiology/Procedures [] Heart Score C/O Chest Pain: No Risk Factors: Risk Factors: DM, Current or recent (<one month) smoker, HTN, HLP, family history of CAD, obesity. Risk Scores: Risk Factors: DM, Current or recent (<one month) smoker, HTN, HLP, family history of CAD, obesity. Course & Med Decision Making Course & Med Decision Making Pertinent Labs and Imaging studies reviewed. (See chart for details) Patient had presented with a complaint of nausea vomiting and not feeling well. He stayed in the emergency department for several hours and did not have any vomiting. His laboratory studies showed findings consistent with liver cirrhosis but no significant acute abnormalities. He was resting comfortably in the emergency department and decided that he wants to be discharged. He states that he does have an appointment with health unit coordinator tomorrow and is going to follow-up as outpatient either at [facility] or at to potentially get his ascites tapped. He no longer wants to stay in the emergency department and wants to leave and request to be discharged. In view there is hemodynamically stable, afebrile not with much abdominal tenderness and tolerating diet, I concur and will discharge him home. Dragon Disclaimer Dragon Disclaimer This electronic medical record was generated, in whole or in part, using a voice recognition dictation system. Departure Departure: Impression: Primary Impression: Alcoholic cirrhosis of liver Additional Impression: Ascites Referrals: CLARA RAWLS MD (PCP) Please call your doctor tomorrow and follow-up as previously planned. If you have any difficulty tolerating diet or noticed any blood in your stool, seek medical attention Patient Instructions: Ascites, Cirrhosis Problem Qualifiers THUAN HIDALGO MD Jul 31, 2021 22:11
[2021-07-31 23:54] VITALS: BP 128/64
== END 2021-08-01 00:11 | disposition home health service (06) ==
LOC: ER 20:32
DX: K70.31 Alcoholic cirrhosis of liver with ascites (principal); J44.9 Chronic obstructive pulmonary disease, unspecified; I10 Essential (primary) hypertension; Z90.49 Acquired absence of other specified parts of digestive tract
CPT/HCPCS: 36415; 80053; 82140; 85025; 85610; 96374; 96375; 99284; J2405; J3490

== ENCOUNTER 2021-11-14 18:36 | Emergency (ER) | payer OTHER ==
[~2021-11-14] VITALS: Ht 190.5 cm; Wt 114.6 kg
--- NOTE | 2021-11-14 18:44 | PHYS DOC ---
Past History Past Medical History: Alcoholism, Anxiety, Arthritis, CAD, Cancer, COPD, Depression, Fibromyalgia, GERD, High Cholesterol, Hypertension, Hepatitis, Liver Disease, [place], Pancreatitis, Other Additional Past Medical Histor: Traumatic brain; stage 4 liver disease; elev ammonia levels Past Surgical History: Cholecystectomy, Other Additional Past Surgical Histo: steel plate in lt eye socket, lower jaw and bijal lower legs Alcohol Use: Rarely Drug Use: Heroin General Adult EDM: Chief Complaint: ABDOMINAL PAIN HPI: HPI: ".. I got some abdomen pain... ",, " I just left [facility].. and I ve lost my pain meds.. I need something to get by... ".. " The meds they sent me home on.. were just not cutting the pain..." Patient is a 61 year old male who presents with abvoe hx and complaints of abd omen pain and exacerbation of his chronic pain. Patient states she was evaluated for testicular cancer at [facility] and has been given follow-up instructions as well as prescription for pain meds. Patient has past medical history of chronic pain, heroin use, and noncompliance. Has known history of chronic alcohol abuse, has been admitted at [facility] as well as [address] and just recently left [facility]. He frequently leaves AMA if he does not receive pain meds to his liking. Has a past medical history of cirrhosis of liver GERD, hypertension, hepatitis, pancreatitis, traumatic brain injury, and traumatic brain injury. Has steel plates left eye socket lower jaw and bilateral lower leg surgical repairs. Patient requesting renewal of his chronic pain meds which were renewed 2 days ago. Patient states somehow he has lost his pain meds. Review of Systems: Review of Systems: Constitutional: Denies fever or chills Eyes: Denies change in visual acuity HENT: Denies nasal congestion or sore throat Respiratory: Denies cough or shortness of breath Cardiovascular: Denies chest pain or edema GI: Denies abdominal pain, nausea, vomiting, bloody stools or diarrhea : Denies dysuria Musculoskeletal: Denies back pain or joint pain Integument: Denies rash Neurologic: Denies headache, focal weakness or sensory changes Endocrine: Denies polyuria or polydipsia Lymphatic: Denies swollen glands Psychiatric: Denies depression or anxiety Family History: Family History: Noncontributory to presentation Current Medications: Current Meds: See nursing for home meds Allergies: Allergies: Allergies Coded Allergies Type Severity Reaction Last Updated Verified No Known Allergies Allergy Unknown 06/27/21 Yes Physical Exam: PE: Constitutional: States he has had an acute exacerbation of his chronic pain distress, non-toxic appearance. [] HENT: Normocephalic, atraumatic, bilateral external ears normal, oropharynx moist, no oral exudates, nose normal. Old surgery scars Eyes: PERRLA, EOMI, conjunctiva normal, no discharge. [] Neck: Normal range of motion, no tenderness, supple, no stridor. [] Cardiovascular: Tachycardia heart rate regular rhythm, no murmur [] Lungs & Thorax: Bilateral breath sounds are apex with scattered wheezes auscultation [] Abdomen: Bowel sounds decreased, soft, mild distention tenderness, no masses, no pulsatile masses. Right inguinal hernia. Enlarged right testicle Skin: Warm, dry, no erythema, no rash. Old injection scars Back: No tenderness, no CVA tenderness. [] Extremities: No tenderness, no cyanosis, no clubbing, ROM intact, no edema. Old surgery scars lower legs Neurologic: Alert and oriented X 3, is all extremities on request, does have d istal sensory,, no focal deficits noted. [] Psychologic: Affect argumentative, judgement normal, mood normal. [] EKG: EKG: [] Radiology/Procedures: Radiology/Procedures: [] Heart Score: C/O Chest Pain: N/A Risk Factors: Risk Factors: DM, Current or recent (<one month) smoker, HTN, HLP, family history of CAD, obesity. Risk Scores: Score 0 - 3: 2.5% MACE over next 6 weeks - Discharge Home Score 4 - 6: 20.3% MACE over next 6 weeks - Admit for Clinical Observation Score 7 - 10: 72.7% MACE over next 6 weeks - Early Invasive Strategies Course & Med Decision Making: Course & Med Decision Making Pertinent Labs and Imaging studies reviewed. (See chart for details) Patient requesting renewal of his chronic pain meds. Patient prescription was filled 2 days ago but states he is lost the meds. Impression: 1. Appears to Exhibit narcotic seeking behaviors 2. History of chronic pain 3. History of cirrhosis of liver 4. History of right inguinal hernia 5. History of polysubstance abuse 6. History of right testicular cancer [] Dragon Disclaimer: Dragon Disclaimer: This electronic medical record was generated, in whole or in part, using a voice recognition dictation system. Departure Departure: Referrals: CLARA RAWLS MD (PCP) Eddie Disclaimer This chart was dictated in whole or in part using Voice Recognition software in a busy, high-work load, and often noisy Emergency Department environment. It may contain unintended and wholly unrecognized errors or omissions. DEAN GAYTAN MD Nov 14, 2021 18:44
[2021-11-14 18:57] VITALS: BP 163/110
[2021-11-14] MEDS ORDERED: MORPHINE SULFATE 10 MG/ML SYRINGE. SQ ONE (19:15)
== END 2021-11-14 19:46 | disposition home or self-care (01) ==
LOC: ER 18:36
DX: Z76.5 Malingerer [conscious simulation] (principal); G89.29 Other chronic pain; K74.60 Unspecified cirrhosis of liver; F19.10 Other psychoactive substance abuse, uncomplicated; F10.20 Alcohol dependence, uncomplicated; F41.9 Anxiety disorder, unspecified; M19.90 Unspecified osteoarthritis, unspecified site; I25.10 Atherosclerotic heart disease of native coronary artery without angina pectoris; J44.9 Chronic obstructive pulmonary disease, unspecified; M79.7 Fibromyalgia; K21.9 Gastro-esophageal reflux disease without esophagitis; E78.00 Pure hypercholesterolemia, unspecified; I10 Essential (primary) hypertension; I25.2 Old myocardial infarction; Z85.47 Personal history of malignant neoplasm of testis; Z87.820 Personal history of traumatic brain injury; Y90.9 Presence of alcohol in blood, level not specified
CPT/HCPCS: 96372; 99284; J2270

== ENCOUNTER 2021-12-03 13:38 | Emergency (ER) | payer OTHER ==
[~2021-12-03] VITALS: Ht 190.5 cm; Wt 114.6 kg
[2021-12-03] MEDS: IOHEXOL 300 MG/ML 75 ML VIAL. IV ONE (15:20)
[2021-12-03] MEDS ORDERED: CONTRAST GIVEN. MC PRN (15:30)
[2021-12-03 15:35] LABS: BASO % 1 % (0-3); EOS % 1 % (0-3); HEMATOCRIT 39.1 % (39.0-53.0); LYMPH % 34 % (24-48); MEAN CORPUSCULAR HEMOGLOBIN 33 pg (25-35); MEAN CORPUSCULAR HGB CONC 33 g/dL (31-37); MEAN CORPUSCULAR VOLUME 98 fL (79-100); MONO # 0.4 x10^3/uL (0.0-1.1); MONO % 12 % (0-9); NEUT # 1.6 x10^3uL (1.8-7.7); NEUT % 52 % (31-73); PLATELET COUNT 55 x10^3/uL (140-400); RED CELL DISTRIBUTION WIDTH 16.7 % (11.5-14.5)
[2021-12-03 15:43] LABS: CALCIUM 7.9 mg/dL (8.5-10.1); CREATININE 0.7 mg/dL (0.7-1.3); GFR 115.4; POTASSIUM 3.7 mmol/L (3.5-5.1)
[2021-12-03 15:50] LABS: ALBUMIN 2.5 g/dL (3.4-5.0); ALBUMIN/GLOBULIN RATIO 0.5 (1.0-1.7); TOTAL BILIRUBIN 1.7 mg/dL (0.2-1.0); TOTAL PROTEIN 7.8 g/dL (6.4-8.2)
--- NOTE | 2021-12-03 16:08 | RAD ---
EXAM: Abdomen and pelvis CT with intravenous contrast. HISTORY: Pain. Liver failure. TECHNIQUE: Computed tomographic images of the abdomen and pelvis were obtained following the administ ration of intravenous contrast. Multiplanar reformatting was performed. *One or more of the following individualized dose reduction techniques were utilized for this examina tion: 1. Automated exposure control. 2. Adjustment of the mA and/or kV according to patient size. 3. Use of iterative reconstruction technique. COMPARISON: 06/09/2021. FINDINGS: Evaluation of the lower thorax demonstrates a large right pleural effusion and right upper and middle lobe collapse. There are also also compressive atelectasis involving the inferior right up per lobe. The heart is normal in size. There is hepatic cirrhosis. No focal hepatic lesion is seen. The gallbladder is absent. The pancreas is unremarkable. The spleen is enlarged, measuring 20 cm. The adrenal glands are unremarkable. There is a small simple cyst within the lower pole the right kidney. Follow-up is not routinely performed f or simple cysts. There is a small to moderate amount of ascites in a predominantly perihepatic distribution. There is diffuse mesenteric stranding likely due to the presence of ascites. There is wall thickening involvin g loops of bowel throughout the abdomen, likely reactive in the presence of ascites. There is no negra l obstruction. There is distal colonic diverticulosis. There is no convincing diverticulitis. There i s urinary bladder wall thickening likely due to relative under distention. There is rectal wall thick ening. There is a collection of ascites fluid within a right inguinal hernia, stable in appearance. There singh s been slight interval increase in ascites fluid within small periumbilical hernias. The aorta is nor mal in caliber. There are stable prominent retroperitoneal and mesenteric lymph nodes. There is no ac [place] or suspicious osseous finding. There is a mild chronic compression deformity of T7. There is an L 3 limbus vertebrae, an incidental finding. IMPRESSION: 1. Large right pleural effusion with associated collapse of the right middle and lower lobe and compr essive atelectasis of the right upper lobe. 2. Small ascites in a predominant a perihepatic distribution. This decreased compared to the prior ex am. 3. Hepatic cirrhosis with associated portal hypertension resulting in splenomegaly and aforementioned ascites. 4. Cervical vertebral wall thickening involving multiple loops of bowel throughout the abdomen. This can be reactive in the setting of ascites. The possibility of enteritis is not excluded. 5. Distal colonic and rectal wall thickening. This may also be reactive or due to colitis/proctitis o f infectious or inflammatory etiologies. 6. Bladder wall thickening. Correlate with urinalysis to exclude cystitis. 7. Colonic diverticulosis. Electronically signed by: Hilaria Gonsalez MD (12/03/2021 4:05 PM) [id number]
--- NOTE | 2021-12-03 16:33 | PHYS DOC ---
Past History Past Medical History: Alcoholism, Anxiety, Arthritis, CAD, Cancer, COPD, Depression, Fibromyalgia, GERD, High Cholesterol, Hypertension, Hepatitis, Liver Disease, VA, Pancreatitis, Other Additional Past Medical Histor: Traumatic brain; stage 4 liver disease; elev ammonia levels, drug abuse (BRANDEN BAIN APRN) Past Surgical History: Cholecystectomy, Other Additional Past Surgical Histo: steel plate in lt eye socket, lower jaw and bijal lower legs (BRANDEN BAIN APRN) Alcohol Use: Heavy Drug Use: Heroin (BRANDEN BAIN APRN) General Adult EDM: Chief Complaint: GROIN PAIN HPI: HPI: Patient is a 61-year-old male that presents today with lower abdominal pain. Patient states he has had abdominal pain for the past 3 or 4 months but has amplified over the last couple of days and it is now severe, patient also has increased work of breathing noted upon my assessment. Patient does have a past medical history of liver failure, he states he has not followed up with anybody recently he does see Dr. Douglass and was supposed to see them last but missed his appointment because he did not have a ride. Patient states he has had a paracentesis in the past but has not had one recently. (BRANDEN BAIN APRN) Review of Systems: Review of Systems: Constitutional: Denies fever or chills Eyes: Denies change in visual acuity HENT: Denies nasal congestion or sore throat Respiratory: Denies cough or shortness of breath Cardiovascular: Denies chest pain or edema GI: Denies abdominal pain, nausea, vomiting, bloody stools or diarrhea : Denies dysuria Musculoskeletal: Denies back pain or joint pain Integument: Denies rash Neurologic: Denies headache, focal weakness or sensory changes Endocrine: Denies polyuria or polydipsia Lymphatic: Denies swollen glands Psychiatric: Denies depression or anxiety (BRANDEN BAIN APRN) Current Medications: Current Meds: Current Medications Medications (Trade) Dose Ordered Sig/Lynnette Start Time Stop Time Status Last Admin Dose Admin Fentanyl Citrate (Fentanyl 2ml Vial) 100 mcg STK-MED ONCE 12/03/21 15:06 12/03/21 15:06 DC Info (Do NOT chart on this entry -- for MONITORING) 1 each PRN DAILY PRN 12/03/21 15:30 12/05/21 15:29 Iohexol (Omnipaque 300 Mg/ml) 75 ml 1X ONCE 12/03/21 15:15 12/03/21 15:16 DC 12/03/21 15:20 75 ML (BRANDEN BAIN CROWNING INSPECTOR) Allergies: Allergies: Allergies Coded Allergies Type Severity Reaction Last Updated Verified No Known Allergies Allergy Unknown 06/27/21 Yes (BRANDEN BAIN APRN) Physical Exam: PE: Constitutional: Ill-appearing moderate distress sickly male older than stated age HENT: Normocephalic, atraumatic, bilateral external ears normal, oropharynx moist, no oral exudates, nose normal. [] Eyes: PERRLA, EOMI, conjunctiva normal, no discharge. [] Neck: Normal range of motion, no tenderness, supple, no stridor. [] Cardiovascular:Heart rate tachycardia with JVD noted Lungs & Thorax: Bilateral breath sounds diminished in the right base, increased work of breathing noted Abdomen: Abdomen is distended and firm, tenderness noted over the lower abdomen and the right upper quadrant, hypoactive bowel sounds noted Skin: Pale skin tear noted on his right forearm Back: No tenderness, no CVA tenderness. [] Extremities: No tenderness, no cyanosis, no clubbing, ROM intact, no edema, 2+ peripheral pulses cap refill less than 2 seconds Neurologic: Alert and oriented X 3, normal motor function, normal sensory function, no focal deficits noted. [] Psychologic: Affect normal, judgement normal, mood normal. [] (BRANDEN BAIN CROWNING INSPECTOR) Current Patient Data: Labs: Laboratory Tests Test 12/03/21 15:15 White Blood Count 3.0 x10^3/uL (4.0-11.0) L Red Blood Count 4.00 x10^6/uL (4.30-5.70) L Hemoglobin 13.0 g/dL (13.0-17.5) Hematocrit 39.1 % (39.0-53.0) Mean Corpuscular Volume 98 fL (79-100) Mean Corpuscular Hemoglobin 33 pg (25-35) Mean Corpuscular Hemoglobin Concent 33 g/dL (31-37) Red Cell Distribution Width 16.7 % (11.5-14.5) H Platelet Count 55 x10^3/uL (140-400) L Neutrophils (%) (Auto) 52 % (31-73) Lymphocytes (%) (Auto) 34 % (24-48) Monocytes (%) (Auto) 12 % (0-9) H Eosinophils (%) (Auto) 1 % (0-3) Basophils (%) (Auto) 1 % (0-3) Neutrophils # (Auto) 1.6 x10^3uL (1.8-7.7) L Lymphocytes # (Auto) 1.0 x10^3/uL (1.0-4.8) Monocytes # (Auto) 0.4 x10^3/uL (0.0-1.1) Eosinophils # (Auto) 0.0 x10^3/uL (0.0-0.7) Basophils # (Auto) 0.0 x10^3/uL (0.0-0.2) Sodium Level 138 mmol/L (136-145) Potassium Level 3.7 mmol/L (3.5-5.1) Chloride Level 104 mmol/L (98-107) Carbon Dioxide Level 25 mmol/L (21-32) Anion Gap 9 (6-14) Blood Urea Nitrogen 6 mg/dL (8-26) L Creatinine 0.7 mg/dL (0.7-1.3) Estimated GFR (Cockcroft-Gault) 115.4 BUN/Creatinine Ratio 9 (6-20) Glucose Level 126 mg/dL (70-99) H Calcium Level 7.9 mg/dL (8.5-10.1) L Total Bilirubin 1.7 mg/dL (0.2-1.0) H Aspartate Amino Transferase (AST) 69 U/L (15-37) H Alanine Aminotransferase (ALT) 34 U/L (16-63) Alkaline Phosphatase 134 U/L (46-116) H Ammonia 26 mcmol/L (11-34) Total Protein 7.8 g/dL (6.4-8.2) Albumin 2.5 g/dL (3.4-5.0) L Albumin/Globulin Ratio 0.5 (1.0-1.7) L Vital Signs: Vital Signs Date Time Temp Pulse Resp B/P (MAP) Pulse Ox O2 Delivery O2 Flow Rate FiO2 12/03/21 18:25 16 96 2/16/22 18:00 129 24 162/90 (114) 96 Room Air 12/03/21 17:00 115 24 136/72 (93) 90 Room Air 12/03/21 16:49 20 94 12/03/21 16:00 117 20 151/67 (95) 91 Room Air 12/03/21 15:09 22 91 12/03/21 13:40 98.3 121 26 151/99 (116) 93 Room Air Vital Signs Date Time Temp Pulse Resp B/P (MAP) Pulse Ox O2 Delivery O2 Flow Rate FiO2 12/03/21 15:09 22 91 12/03/21 13:40 98.3 121 151/99 (116) Room Air (BRANDEN BAIN APRN) EKG: EKG: EKG done at 1649 read by myself at 1651 shows sinus tachycardia at a rate of 115 no STEMI ME interval of 76 ms with a QTC of 461 ms [] (BRANDEN BAIN CROWNING INSPECTOR) Radiology/Procedures: Radiology/Procedures: REASON: abdominal pain liver failure, OMNI 300, 75ml PROCEDURE: CT ABD PELV W/ IV CONTRST ONLY EXAM: Abdomen and pelvis CT with intravenous contrast. HISTORY: Pain. Liver failure. TECHNIQUE: Computed tomographic images of the abdomen and pelvis were obtained following the administration of intravenous contrast. Multiplanar reformatting was performed. *One or more of the following individualized dose reduction techniques were utilized for this examination: 1. Automated exposure control. 2. Adjustment of the mA and/or kV according to patient size. 3. Use of iterative reconstruction technique. COMPARISON: 06/09/2021. FINDINGS: Evaluation of the lower thorax demonstrates a large right pleural effusion and right upper and middle lobe collapse. There are also also compressive atelectasis involving the inferior right upper lobe. The heart is normal in size. There is hepatic cirrhosis. No focal hepatic lesion is seen. The gallbladder is absent. The pancreas is unremarkable. The spleen is enlarged, measuring 20 cm. The adrenal glands are unremarkable. There is a small simple cyst within the lower pole the right kidney. Follow-up is not routinely performed for simple cysts. There is a small to moderate amount of ascites in a predominantly perihepatic distribution. There is diffuse mesenteric stranding likely due to the presence of ascites. There is wall thickening involving loops of bowel throughout the abdomen, likely reactive in the presence of ascites. There is no bowel obstru ction. There is distal colonic diverticulosis. There is no convincing diverticulitis. There is urinary bladder wall thickening likely due to relative under distention. There is rectal wall thickening. There is a collection of ascites fluid within a right inguinal hernia, stable in appearance. There has been slight interval increase in ascites fluid within small periumbilical hernias. The aorta is normal in caliber. There are stable prominent retroperitoneal and mesenteric lymph nodes. There is no acute or suspicious osseous finding. There is a mild chronic compression deformity of T7. There is an L3 limbus vertebrae, an incidental finding. IMPRESSION: 1. Large right pleural effusion with associated collapse of the right middle and lower lobe and compressive atelectasis of the right upper lobe. 2. Small ascites in a predominant a perihepatic distribution. This decreased compared to the prior exam. 3. Hepatic cirrhosis with associated portal hypertension resulting in splenomegaly and aforementioned ascites. 4. Cervical vertebral wall thickening involving multiple loops of bowel throughout the abdomen. This can be reactive in the setting of ascites. The possibility of enteritis is not excluded. 5. Distal colonic and rectal wall thickening. This may also be reactive or due to colitis/proctitis of infectious or inflammatory etiologies. 6. Bladder wall thickening. Correlate with urinalysis to exclude cystitis. 7. Colonic diverticulosis. Electronically signed by: Hilaria Gonsalez MD (12/03/2021 4:05 PM) [id number] [] (BRANDEN BAIN APRN) Heart Score: C/O Chest Pain: N/A Risk Factors: Risk Factors: DM, Current or recent (<one month) smoker, HTN, HLP, family history of CAD, obesity. Risk Scores: Score 0 - 3: 2.5% MACE over next 6 weeks - Discharge Home Score 4 - 6: 20.3% MACE over next 6 weeks - Admit for Clinical Observation Score 7 - 10: 72.7% MACE over next 6 weeks - Early Invasive Strategies (BRANDEN BAIN APRN) Course & Med Decision Making: Course & Med Decision Making Pertinent Labs and Imaging studies reviewed. (See chart for details) [address] Sanchez with the [facility] transfer team they are unable to take this patient in transfer. Talked with the nursing route rider supervisor at [facility] and will come to get the patient transferred to [place] for further management of his liver failure, ascites, and right pleural effusion. [address] Howell who is agreeable to admitting this patient at [facility] for further management of his ascites and pleural e ffusion. Requested bed from nursing route rider supervisor at [facility]. (BRANDEN BAIN APRN) Dragon Disclaimer: Dragon Disclaimer: This electronic medical record was generated, in whole or in part, using a voice recognition dictation system. (BRANDEN BAIN APRN) Attending Co-Sign The patient was seen and interviewed as well as examined at the bedside. The chart was reviewed. The case was discussed. Agree with the plan of care. (TAMMY KASPER DO) Departure Departure: Impression: Primary Impression: Abdominal pain Qualified Codes: R10.30 - Lower abdominal pain, unspecified Additional Impressions: Ascites due to alcoholic cirrhosis Pleural effusion Disposition: 02 SHORT TERM HOSPITAL Condition: STABLE Referrals: CLARA DOUGLASS MD (PCP) BRANDEN BAIN APRN Dec 03, 2021 16:33 TAMMY KASPER DO Dec 05, 2021 08:49
[2021-12-03] MEDS: HYDROmorphone PF 1 MG/ML DISP.SYRIN IVP ONE (16:49)
[2021-12-03] MEDS: ONDANSETRON PF 4 MG/2 ML VIAL. IVP ONE (16:49)
--- NOTE | 2021-12-03 17:19 | EKG ---
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
[2021-12-03 18:00] VITALS: BP 162/90
[2021-12-03] MEDS ORDERED: HYDROmorphone PF 2 MG/ML VIAL IVP ONE (18:15)
[2021-12-03] MEDS ORDERED: IV NORMAL SALINE 50ML 50 ML ONE (19:18)
[2021-12-03] MEDS ORDERED: cefTRIAXone SODIUM 1 GM VIAL ONE (19:18)
== END 2021-12-03 19:45 | disposition short-term general hospital (02) ==
LOC: ER 13:38
DX: U07.1 COVID-19 (principal); K70.31 Alcoholic cirrhosis of liver with ascites; J90 Pleural effusion, not elsewhere classified; R10.30 Lower abdominal pain, unspecified; F10.20 Alcohol dependence, uncomplicated; F41.9 Anxiety disorder, unspecified; M19.90 Unspecified osteoarthritis, unspecified site; I25.10 Atherosclerotic heart disease of native coronary artery without angina pectoris; J44.9 Chronic obstructive pulmonary disease, unspecified; F32.9 Major depressive disorder, single episode, unspecified; M79.7 Fibromyalgia; K21.9 Gastro-esophageal reflux disease without esophagitis; E78.00 Pure hypercholesterolemia, unspecified; I10 Essential (primary) hypertension; I25.2 Old myocardial infarction; Y90.9 Presence of alcohol in blood, level not specified
CPT/HCPCS: 36415; 74177; 80053; 82140; 83880; 84484; 85025; 87426; 93005; 96365; 96375; 96376; 99285; C9803; J0696; J1170; J2405; J3010; Q9967; U0003